=== PATIENT | female | born 1970 | race Caucasian/White ===

== ENCOUNTER → 2016-08-24 | Outpatient (CLI) | payer MEDICARE, OTHER ==
[2016-08-24 14:03] LABS: CH 25.8; CHCM 30.6; HCT 37.4 % (34.0-46.0); HDW 3.12; HGB 11.9 gm/dL (11.4-16.0); Hypochromasia Marked; MCV 84.5 fL (80.0-100.0); Mean Platelet Volume 8.8; RBC 4.42 m/uL (3.80-5.40); WBC 7.4 k/uL (3.8-10.6)
[2016-08-24 14:13] LABS: INR 1.1 (<1.1); Prothrombin Time 10.7 sec (9.0-12.0)
[2016-08-24 14:24] LABS: Anion Gap 13 mmol/L; Calcium 9.4 mg/dL (8.4-10.2); Carbon Dioxide 20 mmol/L (22-30); Chloride 108 mmol/L (98-107); Glucose 146 mg/dL (74-99); Non-African American GFR(MDRD) >60 (>60 ml/min/1.73 sqM); Sodium 141 mmol/L (137-145); Total Bilirubin 0.8 mg/dL (0.2-1.3)
[2016-08-24 14:33] LABS: AST 55 U/L (14-36); Alkaline Phosphatase 122 U/L (38-126); Blood Urea Nitrogen 10 mg/dL (7-17); Potassium 5.5 mmol/L (3.5-5.1); Total Protein 8.4 g/dL (6.3-8.2)
[2016-08-24 14:34] LABS: ALT 16 U/L (9-52)
== END | disposition home or self-care (01) ==
LOC: LABWHC1 13:41
PROVIDERS: ATTEND Physician Assistant
DX: K70.30 Alcoholic cirrhosis of liver without ascites (principal)
CPT/HCPCS: 36415; 80053; 85027; 85610

== ENCOUNTER → 2016-12-20 | Outpatient (CLI) | payer MEDICARE, OTHER ==
[2016-12-20 09:00] LABS: INR 1.1 (<1.1); Prothrombin Time 10.8 sec (9.0-12.0)
[2016-12-20 09:07] LABS: Anisocytosis Slight; CH 26.6; CHCM 31.4; HCT 39.5 % (34.0-46.0); HDW 3.11; HGB 12.2 gm/dL (11.4-16.0); Hypochromasia Moderate; MCH 26.4 pg (25.0-35.0); MCV 85.1 fL (80.0-100.0); RBC 4.64 m/uL (3.80-5.40); RDW 16.9 % (11.5-15.5); WBC 9.9 k/uL (3.8-10.6)
[2016-12-20 09:09] LABS: ALT 41 U/L (9-52); AST 45 U/L (14-36); Alkaline Phosphatase 122 U/L (38-126); Anion Gap 10 mmol/L; Blood Urea Nitrogen 13 mg/dL (7-17); Calcium 9.6 mg/dL (8.4-10.2); Carbon Dioxide 24 mmol/L (22-30); Chloride 105 mmol/L (98-107); Glucose 80 mg/dL (74-99); Non-African American GFR(MDRD) >60 (>60 ml/min/1.73 sqM); Potassium 4.6 mmol/L (3.5-5.1); Sodium 139 mmol/L (137-145); Total Bilirubin 0.6 mg/dL (0.2-1.3); Total Protein 8.2 g/dL (6.3-8.2)
== END | disposition home or self-care (01) ==
LOC: LABWHC1 08:20
PROVIDERS: ATTEND Physician Assistant
DX: K70.30 Alcoholic cirrhosis of liver without ascites (principal)
CPT/HCPCS: 36415; 80053; 85027; 85610

== ENCOUNTER → 2017-03-29 | Outpatient (CLI) | payer MEDICARE, OTHER ==
[2017-03-29 13:22] LABS: INR 1.1 (<1.2); Prothrombin Time 10.7 sec (9.0-12.0)
[2017-03-29 13:42] LABS: Anisocytosis Slight; CH 25.9; CHCM 29.7; HCT 37.6 % (34.0-46.0); HGB 11.7 gm/dL (11.4-16.0); Hypochromasia Marked; MCH 27.2 pg (25.0-35.0); MCV 87.7 fL (80.0-100.0); Mean Platelet Volume 8.5; RBC 4.29 m/uL (3.80-5.40); RDW 16.8 % (11.5-15.5); WBC 11.4 k/uL (3.8-10.6)
[2017-03-29 13:43] LABS: ALT 50 U/L (9-52); AST 54 U/L (14-36); Alkaline Phosphatase 140 U/L (38-126); Anion Gap 11 mmol/L; Blood Urea Nitrogen 13 mg/dL (7-17); Calcium 9.3 mg/dL (8.4-10.2); Carbon Dioxide 22 mmol/L (22-30); Chloride 106 mmol/L (98-107); Glucose 158 mg/dL (74-99); Non-African American GFR(MDRD) >60 (>60 ml/min/1.73 sqM); Potassium 4.8 mmol/L (3.5-5.1); Sodium 139 mmol/L (137-145); Total Bilirubin 0.2 mg/dL (0.2-1.3); Total Protein 8.1 g/dL (6.3-8.2)
== END | disposition home or self-care (01) ==
LOC: LABWHC1 12:41
PROVIDERS: ATTEND Physician Assistant
DX: K70.30 Alcoholic cirrhosis of liver without ascites (principal)
CPT/HCPCS: 36415; 80053; 82105; 85027; 85610

== ENCOUNTER → 2017-04-13 | Outpatient (CLI) | payer MEDICARE, OTHER ==
--- NOTE | 2017-04-17 19:10 | MR ---
EXAMINATION TYPE: MR liver wo/w con DATE OF EXAM: 04/13/2017 COMPARISON: 05/13/2016 and 03/10/2014 HISTORY: Follow up from previous MRI. Hepatocellular disease. CONTRAST: Standard multiplanar, multisequence MRI departmental protocol utilizing 10 mL intravenous Gadavist ga dolinium contrast. FINDINGS: There is a cirrhotic morphology of the liver with a macronodular contour. No hepatic atrophy. There i s mild signal dropout on out of phase imaging compared in phase imaging represented of mild hepatic s teatosis superimposed upon hepatocellular disease. Focal fatty sparing is seen around the gallbladder fossa and segment IVb. Peripheral predominant reticular T2 hyperintense and T1 hypointense pattern o f fibrosis is appreciated with delayed enhancement. No T2 hyperintense and T1 hypointense arterial en hancing lesions with washout on delayed imaging are seen to suggest hepatocellular carcinoma. The por maritza vein and portal splenic confluence as well as the upper visualized portions of the superior mesen teric vein and splenic vein appear patent. Trace perihepatic ascites is present. No evidence of conge stive colopathy. Nonenhancing punctate foci within the splenic parenchyma are favored to represent siderosis versus gr anulomas. The spleen is prominent in size measuring 13.0 cm although nonenlarged. Few small gastrohep atic varices are seen. No splenic varices. Esophageal varices are present such as on series 701 image 482. There is recannulization of the umbilical vein without mesenteric or soft tissue varices. Minim al bibasilar subsegmental atelectasis is seen at the lung bases. Surgical clips are seen in the gastr oesophageal junction. The pancreas is of normal enhancement and morphology without ductal dilatation. Visualized bowel is n ondilated. Few nonenlarged periaortic lymph nodes are seen. The kidneys are symmetric in enhancement without T2 hyperintense lesion. Adrenal glands are symmetric. Numerous gallstones are present within the gallbladder. Common bile duct is nondilated. Midline omental soft tissue density is stable back t o 10/06/2010 and may represent sequela of prior omental infarct. IMPRESSION: 1. Hepatic fibrosis and sequela of portal venous hypertension in the setting of hepatic cirrhosis wit h no suspicious lesion to raise concern for hepatocellular carcinoma. Continued surveillance is recom mended in this high-risk patient. 2. Scant perihepatic ascites. 3. Gastrohepatic and esophageal varices. 4. 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
== END | disposition home or self-care (01) ==
LOC: RADMRIMAIN 19:42
PROVIDERS: ATTEND Physician Assistant
DX: K74.0 Hepatic fibrosis (principal); K76.6 Portal hypertension; R18.8 Other ascites; I85.00 Esophageal varices without bleeding; I86.4 Gastric varices; K74.60 Unspecified cirrhosis of liver
CPT/HCPCS: 74183; A9581

== ENCOUNTER → 2017-08-22 | Outpatient (CLI) | payer MEDICARE, OTHER ==
[2017-08-22 13:11] LABS: INR 1.1 (<1.2); Prothrombin Time 10.8 sec (9.0-12.0)
[2017-08-22 13:12] LABS: Anisocytosis Slight; HCT 37.9 % (34.0-46.0); HGB 11.4 gm/dL (11.4-16.0); Hypochromasia Marked; MCH 24.9 pg (25.0-35.0); MCHC 30.2 g/dL (31.0-37.0); MCV 82.4 fL (80.0-100.0); Mean Platelet Volume 7.8; Platelet Count 245 k/uL (150-450); RBC 4.59 m/uL (3.80-5.40); RDW 16.7 % (11.5-15.5); WBC 7.2 k/uL (3.8-10.6)
[2017-08-22 13:15] LABS: ALT 33 U/L (9-52); AST 41 U/L (14-36); Albumin 4.4 g/dL (3.5-5.0); Alkaline Phosphatase 106 U/L (38-126); Anion Gap 13 mmol/L; Blood Urea Nitrogen 10 mg/dL (7-17); Calcium 9.9 mg/dL (8.4-10.2); Carbon Dioxide 26 mmol/L (22-30); Chloride 105 mmol/L (98-107); Glucose 141 mg/dL (74-99); Potassium 4.2 mmol/L (3.5-5.1); Sodium 144 mmol/L (137-145); Total Bilirubin 0.3 mg/dL (0.2-1.3); Total Protein 8.6 g/dL (6.3-8.2)
== END | disposition home or self-care (01) ==
LOC: LABWHC1 12:48
PROVIDERS: ATTEND Physician Assistant
DX: K70.30 Alcoholic cirrhosis of liver without ascites (principal)
CPT/HCPCS: 36415; 80053; 82105; 85027; 85610

== ENCOUNTER 2019-06-26 17:16 | Emergency (ER) | payer MEDICARE, OTHER ==
[2019-06-26] MEDS ORDERED: IPRATROPIUM-ALBUTEROL 3 ML NEB INHALATION STA (17:44)
--- NOTE | 2019-06-26 18:29 | ED ---
URI HPI - General Chief Complaint: Upper Respiratory Infection Stated Complaint: Not feeling well Time Seen by Provider: 06/26/19 17:28 Source: patient, RN notes reviewed Mode of arrival: ambulatory Limitations: no limitations - History of Present Illness Initial Comments: 49-year-old female presents emergency Department chief complaint of cough congestion bodyaches. Patient states she has not followed last 3 days. Patient states she has a slightly productive cough states it hurts to cough and her ribs. She has no resting chest pain or exertional dyspnea. Patient denies recent Tylenol or Motrin. She does have underlying liver cirrhosis from alcohol abuse. Patient denies history of cardiac disease or congestive heart failure. She has no evidence of orthopnea. Patient states she has a large amount nasal congestion, sore throat and ear pressure. - Related Data Home Medications Medication Instructions Recorded Confirmed Cyanocobalamin [Vitamin B-12] 500 mcg PO DAILY@1200 03/10/14 03/10/14 Folic Acid 1 mg PO DAILY 03/10/14 03/10/14 Furosemide [Lasix] 80 mg PO BID 03/10/14 03/10/14 Hydrocodone/Acetaminophen 1 each PO BID 03/10/14 05/16/16 [Hydrocodone/Acetaminophen 10-325] Omeprazole [PriLOSEC] 20 mg PO AC-BID 03/10/14 03/10/14 PARoxetine HCL [Paxil] 20 mg PO DAILY 03/10/14 03/10/14 Propranolol [Inderal] 10 mg PO TID 03/10/14 05/16/16 Rifaximin [Xifaxan] 550 mg PO 03/10/14 03/10/14 Spironolactone 100 mg PO BID 03/10/14 03/10/14 Ursodiol [Actigall] 300 mg PO BID 03/10/14 03/10/14 Previous Rx's Medication Instructions Recorded Oseltamivir [Tamiflu] 75 mg PO Q12HR #10 cap 06/26/19 Allergies Allergy/AdvReac Type Severity Reaction Status Date / Time No Known Allergies Allergy Verified 06/26/19 17:21 Review of Systems ROS Statement: Those systems with pertinent positive or pertinent negative responses have been documented in the HPI. ROS Other: All systems not noted in ROS Statement are negative. Past Medical History Past Medical History: Liver Disease Additional Past Medical History / Comment(s): CIRRHOSIS. ESOPHAGEAL VARICIES History of Any Multi-Drug Resistant Organisms: None Reported Past Surgical History: Bariatric Surgery, Tubal Ligation Additional Past Surgical History / Comment(s): tummy tuck, gastric bypass, EGD, COLONOSCOPY Past Anesthesia/Blood Transfusion Reactions: No Reported Reaction Past Psychological History: Anxiety Smoking Status: Current every day smoker Past Alcohol Use History: None Reported Past Drug Use History: Marijuana - Past Family History Father Family Medical History: Deep Vein Thrombosis (DVT) General Exam Limitations: no limitations General appearance: alert, in no apparent distress Head exam: Present: atraumatic, normocephalic, normal inspection Eye exam: Present: normal appearance, PERRL, EOMI. Absent: scleral icterus, conjunctival injection, periorbital swelling ENT exam: Present: normal exam, normal oropharynx, mucous membranes moist Neck exam: Present: normal inspection, full ROM. Absent: tenderness, meningismus, lymphadenopathy Respiratory exam: Present: normal lung sounds bilaterally, chest wall tenderness. Absent: respiratory distress, wheezes, rales, rhonchi, stridor Cardiovascular Exam: Present: regular rate, normal rhythm, normal heart sounds. Absent: systolic murmur, diastolic murmur, rubs, gallop, clicks Back exam: Absent: CVA tenderness (R), CVA tenderness (L) Neurological exam: Present: alert Skin exam: Present: warm, dry, intact, normal color. Absent: rash Course Vital Signs 06/26/19 06/26/19 06/26/19 17:19 17:54 18:15 Temperature 97.7 F Pulse Rate 91 91 90 Respiratory 22 Rate Blood Pressure 116/76 O2 Sat by Pulse 100 Oximetry Medical Decision Making - Medical Decision Making Chest x-ray is unremarkable, patient has influenza B-positive. Patient's symptoms started last 48 hours we offered Tamiflu. Patient be discharged return parameters were discussed. - Lab Data Lab Results 06/26/19 Range/Units 18:00 Influenza Type A RNA Not Detected (Not Detectd) Influenza Type B (PCR) Detected H (Not Detectd) Disposition Clinical Impression: Influenza B Disposition: HOME SELF-CARE Condition: Stable Instructions (If sedation given, give patient instructions): Influenza (ED) Additional Instructions: Please return to the Emergency Department if symptoms worsen or any other concerns. Prescriptions: Oseltamivir [Tamiflu] 75 mg PO Q12HR #10 cap Is patient prescribed a controlled substance at d/c from ED?: No Referrals: Tung Christensen MD [Primary Care Provider] - 1-2 days Time of Disposition: 18:29
--- NOTE | 2019-06-26 18:37 | XR ---
EXAMINATION TYPE: XR chest 2V DATE OF EXAM: 06/26/2019 COMPARISON: 07/16/2012 HISTORY: Cough TECHNIQUE: 2 views FINDINGS: Heart is normal. Lungs are clear. Diaphragm is normal. There are no hilar masses. Bony thor ax is intact. IMPRESSION: Normal chest. No change.
[2019-06-26 19:21] VITALS: BP 120/71; PULSE 78; RESP 196; TEMP 97.9
== END 2019-06-26 19:21 | disposition home or self-care (01) ==
LOC: EC 17:16
DX: J10.1 Influenza due to other identified influenza virus with other respiratory manifestations (principal); F41.9 Anxiety disorder, unspecified; F17.200 Nicotine dependence, unspecified, uncomplicated; Z79.899 Other long term (current) drug therapy; Z98.84 Bariatric surgery status
CPT/HCPCS: 71046; 87502; 94640; 99284

== ENCOUNTER → 2020-05-18 | Day surgery (SDC) | payer MEDICARE ==
[2020-05-14 09:22] VITALS: BMI 27.4
[~2020-05-18] MED LIST: LACTATED RINGERS 1,000 ML IV ONE; LACTATED RINGERS 1,000 ML IV SCH; LIDOCAINE 1% (10MG/ML) FOR IV START INTRADERMA ONE; LIDOCAINE 1% INJ 10MG/ML (20 ML MDV) ONE; PROPOFOL 10 MG/ML 20 ML VIAL IV ONE
[2020-05-18 10:13] VITALS: TEMP 97.8
[2020-05-18 10:53] LABS: Anisocytosis Slight; HGB 11.3 gm/dL (11.4-16.0); Hypochromasia Slight; MCH 25.5 pg (25.0-35.0); MCHC 33.2 g/dL (31.0-37.0); MCV 76.9 fL (80.0-100.0); Mean Platelet Volume 7.9; Microcytosis Slight; Platelet Count 182 k/uL (150-450); RBC 4.42 m/uL (3.80-5.40); RDW 16.5 % (11.5-15.5); WBC 5.8 k/uL (3.8-10.6)
[2020-05-18 11:02] LABS: Prothrombin Time 10.4 sec (9.0-12.0)
[2020-05-18 11:08] LABS: ALT 39 U/L (4-34); AST 59 U/L (14-36); African American GFR (CKD) >90 (>60 ml/min/1.73 sqM); Albumin 4.1 g/dL (3.5-5.0); Alkaline Phosphatase 105 U/L (38-126); Anion Gap 6 mmol/L; Blood Urea Nitrogen 11 mg/dL (7-17); Calcium 9.8 mg/dL (8.4-10.2); Carbon Dioxide 26 mmol/L (22-30); Chloride 108 mmol/L (98-107); Glucose 100 mg/dL (74-99); Non-African American GFR(CKD) >90 (>60 ml/min/1.73 sqM); Potassium 4.6 mmol/L (3.5-5.1); Sodium 140 mmol/L (137-145); Total Bilirubin 0.5 mg/dL (0.2-1.3); Total Protein 7.8 g/dL (6.3-8.2)
[2020-05-18 12:02] VITALS: RESP 16
--- NOTE | 2020-05-18 12:02 | P.PCN ---
Date of Procedure: 05/18/20 Description of Procedure: Brief history: Patient is a 50-year-old presenting for outpatient esophagogastroduodenoscopy and colonoscopy for evaluation of esophageal varices without bleeding and screening for malignant neoplasm of the colon. Procedure performed: Esophagogastroduodenoscopy Colonoscopy Estimated blood loss: Minimal. Preoperative diagnosis: Esophageal varices without bleeding, screening for malignant neoplasm of the colon. Anesthesia: MAC Procedure: After informed consent was obtained from the patient was brought into the endoscopy unit and IV sedation was administered by anesthesia under continuous monitoring. Initially upper endoscopy was done. The Olympus GF 190 video endoscope was inserted into the mouth and esophagus intubated without any difficulty and was gradually advanced into the gastric remnant and into the small bowel. No abnormalities or ulcers were seen. Scope was then withdrawn to the anastomotic site which was intact. The gastric remnant appeared normal. The scope was then withdrawn to the GE junction located 38 cm from the incisors and appeared normal. There were a few columns of small varices and some LA grade a distal esophagitis in the distal esophagus. The rest of the esophagus otherwise appeared normal. At this time the patient continued to remain sedation. Initial digital rectal examination was normal. Olympus CF 190 video colonoscope was then inserted into the rectum and gradually advanced to the cecum without any difficulty. Careful examination was performed as the scope was gradually being withdrawn. The prep was excellent. The cecum, ascending colon, transverse colon, descending colon, sigmoid colon and rectum appeared normal. A few scattered diverticula noted in the sigmoid colon. Retroflexion was performed in the rectum and no lesions were noted. Patient tolerated the procedure well. Impression: 1. A few columns of small distal esophageal varices. LA grade a distal esophagitis. Cande-en-Y gastric bypass. 2. Mild sigmoid diverticulosis. Recommendations: Findings of this examination were discussed with the patient as well as her family. Okay to resume diet. Okay to resume medication. Patient should follow-up in the GI clinic and would recommend restarting omeprazole daily and a nonselective beta shantelle as the patient has previously been treated with. Recommend repeat colonoscopy in 10 years for screening and repeat EGD in 1-2 years for surveillance of varices.
[2020-05-18 12:18] VITALS: BP 95/65; PULSE 70
== END ==
LOC: ORWHC2ENDO 09:54
PROVIDERS: ATTEND Internal Medicine
DX: Z12.11 Encounter for screening for malignant neoplasm of colon (principal); K57.30 Diverticulosis of large intestine without perforation or abscess without bleeding; K74.60 Unspecified cirrhosis of liver; I85.10 Secondary esophageal varices without bleeding; K20.90 Esophagitis, unspecified without bleeding; Z98.51 Tubal ligation status; Z98.890 Other specified postprocedural states; Z98.84 Bariatric surgery status
CPT/HCPCS: 80053; 85027; 85610; 82105; 43235; J2001; J2704; G0121

== ENCOUNTER → 2020-05-20 | Outpatient (CLI) | payer MEDICARE ==
--- NOTE | 2020-05-20 09:57 | MR ---
EXAMINATION TYPE: MR liver wo/w con DATE OF EXAM: 05/20/2020 COMPARISON: MRI liver April 13, 2017 and older studies. HISTORY: Alcoholic Cirrhosis CONTRAST: Standard multiplanar, multisequence MRI departmental protocol utilizing 8.5 mL intravenous Gadavist g adolinium contrast. Imaging performed of the abdomen focusing on the liver. FINDINGS: Liver: Liver remains normal in size with lobulated peripheral nodular contour consistent with underly ing cirrhosis. No surrounding ascites is seen. Dynamic postcontrast imaging shows no suspicious enhan cing lesions with peripheral washout to suggest focal HCC. No concerning solid or cystic intrahepatic masses are identified. Peripheral predominant reticular T2 hyperintense and T1 hypointense pattern o f fibrosis is redemonstrated with delayed enhancement. There is patent main portal vein which is nond ilated. There are patent hepatic veins draining into the IVC. There is redemonstration of multiple de pendent small gallstones in gallbladder without surrounding inflammatory change or wall thickening. N o biliary dilatation is noted. Other: Spleen size is stable and upper limits of normal at 14.0 cm coronal image 33 unchanged from pr ior. Lung bases are clear. Uphill Periesophageal varices redemonstrated. The pancreas and both adrena l glands remain within normal limits. No concerning renal mass or hydronephrosis. No bowel dilatation or intra-abdominal ascites. Osseous structures are intact. IMPRESSION: Continued hepatic fibrosis and cirrhosis morphology without focal mass to suggest HCC. No Significant change from prior. No new significant ascites.
== END | disposition home or self-care (01) ==
LOC: RADMRIMAIN 07:19
PROVIDERS: ATTEND Physician Assistant
DX: K74.00 Hepatic fibrosis, unspecified (principal)
CPT/HCPCS: 74183; A9585

== ENCOUNTER 2021-03-14 21:02 | Emergency (ER) | payer OTHER, MEDICARE ==
[2021-03-14 21:18] VITALS: TEMP 97.9
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
[2021-03-14] MEDS ORDERED: LIDOCAINE 1% INJ 10MG/ML (20 ML MDV) SQ ONE (23:53)
[2021-03-15 01:38] VITALS: BP 110/65; PULSE 74; RESP 16
== END 2021-03-15 01:38 | disposition home or self-care (01) ==
LOC: EC 21:02
DX: S01.81XA Laceration without foreign body of other part of head, initial encounter (principal); F17.200 Nicotine dependence, unspecified, uncomplicated; F12.90 Cannabis use, unspecified, uncomplicated; Z98.84 Bariatric surgery status; V47.5XXA Car driver injured in collision with fixed or stationary object in traffic accident, initial encounter; Y92.410 Unspecified street and highway as the place of occurrence of the external cause
CPT/HCPCS: 70450; 99284; 12014; J2001

== ENCOUNTER 2021-09-04 23:28 | Emergency (ER) | payer MEDICARE ==
[2021-09-04 23:43] VITALS: RESP 20
[2021-09-05 01:57] LABS: Anisocytosis Slight; Basophils # (A) 0.1 k/uL (0-0.2); Basophils % (A) 1 %; Eosinophils # (A) 0.2 k/uL (0-0.7); Eosinophils % (A) 3 %; HGB 10.7 gm/dL (11.4-16.0); Hypochromasia Slight; Lymphocytes # (A) 1.4 k/uL (1.0-4.8); Lymphocytes % (A) 21 %; MCH 25.6 pg (25.0-35.0); MCHC 31.6 g/dL (31.0-37.0); MCV 81.1 fL (80.0-100.0); Mean Platelet Volume 9.1; Monocytes # (A) 0.5 k/uL (0-1.0); Monocytes % (A) 8 %; Neutrophils # (A) 4.3 k/uL (1.3-7.7); Neutrophils % (A) 66 %; Platelet Count 233 k/uL (150-450); RBC 4.19 m/uL (3.80-5.40); RDW 16.5 % (11.5-15.5); WBC 6.5 k/uL (3.8-10.6)
--- NOTE | 2021-09-05 01:59 | ED ---
Skin/Abscess/FB HPI - General Chief complaint: Skin/Abscess/Foreign Body Stated complaint: RT leg infection Time Seen by Provider: 09/05/21 00:06 Source: patient, RN notes reviewed Mode of arrival: wheelchair Limitations: no limitations - History of Present Illness Initial comments: Patient states a few days ago she dropped an object on her left leg, anterior aspect. Patient states that since then she has had pain to the area. Patient now complaining of swelling to the area. Pain is exacerbated by palpation and movement. Follow-up with your regular physician as directed. Return to the ER immediately if any symptoms worsen, new symptoms arise, or any other problems develop. - Related Data Previous Rx's Medication Instructions Recorded Cephalexin [Keflex] 500 mg PO Q6HR #40 cap 09/05/21 Allergies Allergy/AdvReac Type Severity Reaction Status Date / Time No Known Allergies Allergy Verified 09/04/21 23:43 Review of Systems ROS Statement: Those systems with pertinent positive or pertinent negative responses have been documented in the HPI. ROS Other: All systems not noted in ROS Statement are negative. Past Medical History Past Medical History: Liver Disease Additional Past Medical History / Comment(s): CIRRHOSIS. ESOPHAGEAL VARICIES History of Any Multi-Drug Resistant Organisms: None Reported Past Surgical History: Bariatric Surgery, Tubal Ligation Additional Past Surgical History / Comment(s): tummy tuck, gastric bypass, EGD, COLONOSCOPY Past Anesthesia/Blood Transfusion Reactions: No Reported Reaction Past Psychological History: Anxiety Smoking Status: Current every day smoker Past Alcohol Use History: None Reported Past Drug Use History: Marijuana - Past Family History Father Family Medical History: Deep Vein Thrombosis (DVT) General Exam - General Exam Comments Initial Comments: This is a pleasant 51-year-old female in no significant distress. She does not appear to be ill or toxic. Vital signs reviewed, patient cranial nerves are grossly intact. Limitations: no limitations General appearance: alert, in no apparent distress Head exam: Present: atraumatic, normocephalic, normal inspection Eye exam: Present: normal appearance, PERRL, EOMI. Absent: scleral icterus, conjunctival injection, periorbital swelling ENT exam: Present: normal exam, mucous membranes moist Neck exam: Present: normal inspection. Absent: tenderness, meningismus, lymphadenopathy Respiratory exam: Present: normal lung sounds bilaterally. Absent: respiratory distress, wheezes, rales, rhonchi, stridor Cardiovascular Exam: Present: regular rate, normal rhythm, normal heart sounds. Absent: systolic murmur, diastolic murmur, rubs, gallop, clicks GI/Abdominal exam: Present: soft, normal bowel sounds. Absent: distended, tenderness, guarding, rebound, rigid Extremities exam: Present: full ROM, tenderness (Patient has tenderness to anterior aspect of the left lower leg. There is an area of contusion with a mild area of erythema. No evidence of lymphangitis. No ankle or knee tenderness. No calf tenderness. Negative Homans sign. Pedal pulses are 2+ out of 4.), normal capillary refill, pedal edema, other (Mild edema noted to the affected area. No edema elsewhere.). Absent: joint swelling, calf tenderness Back exam: Present: normal inspection Neurological exam: Present: alert, oriented X3, CN II-XII intact Psychiatric exam: Present: normal affect, normal mood Skin exam: Present: warm, dry, intact, normal color. Absent: rash Course Vital Signs 09/04/21 23:41 Temperature 98.1 F Pulse Rate 91 Respiratory 20 Rate Blood Pressure 126/74 O2 Sat by Pulse 100 Oximetry Medical Decision Making - Medical Decision Making Patient presents symptomology consistent with soft tissue contusion possible early cellulitis. The patient does not appear to be ill or toxic.The case was discussed in detail with ED attending physician. Presentation, findings, treatment plan discussed in detail. Patient's x-rays show no evidence of acute pathology. Patient's symptoms mildly consistent with a contusion with possible early cellulitis/secondary infection. I'm going to cover the patient with cephalexin. We'll have her elevate leg as much as possible follow-up with her regular physician for recheck. Patient was told to call Monday morning to schedule the follow-up appointment. All findings discussed. Treatment plan discussed. Patient voiced understanding. - Lab Data Result diagrams: 09/05/21 01:37 09/05/21 01:37 Lab Results 09/05/21 09/05/21 Range/Units 01:37 01:37 WBC 6.5 (3.8-10.6) k/uL RBC 4.19 (3.80-5.40) m/uL Hgb 10.7 L (11.4-16.0) gm/dL Hct 34.0 (34.0-46.0) % MCV 81.1 (80.0-100.0) fL MCH 25.6 (25.0-35.0) pg MCHC 31.6 (31.0-37.0) g/dL RDW 16.5 H (11.5-15.5) % Plt Count 233 (150-450) k/uL MPV 9.1 Neutrophils % 66 % Lymphocytes % 21 % Monocytes % 8 % Eosinophils % 3 % Basophils % 1 % Neutrophils # 4.3 (1.3-7.7) k/uL Lymphocytes # 1.4 (1.0-4.8) k/uL Monocytes # 0.5 (0-1.0) k/uL Eosinophils # 0.2 (0-0.7) k/uL Basophils # 0.1 (0-0.2) k/uL Hypochromasia Slight Anisocytosis Slight Sodium 137 (137-145) mmol/L Potassium 4.0 (3.5-5.1) mmol/L Chloride 108 H (98-107) mmol/L Carbon Dioxide 22 (22-30) mmol/L Anion Gap 7 mmol/L BUN 18 H (7-17) mg/dL Creatinine 0.68 (0.52-1.04) mg/dL Est GFR (CKD-EPI)AfAm >90 (>60 ml/min/1.73 sqM) Est GFR (CKD-EPI)NonAf >90 (>60 ml/min/1.73 sqM) Glucose 89 (74-99) mg/dL Calcium 9.6 (8.4-10.2) mg/dL Total Bilirubin 0.6 (0.2-1.3) mg/dL AST 32 (14-36) U/L ALT 23 (4-34) U/L Alkaline Phosphatase 100 (38-126) U/L Total Protein 8.1 (6.3-8.2) g/dL Albumin 4.2 (3.5-5.0) g/dL Disposition Clinical Impression: Contusion of right lower leg, initial encounter, Cellulitis of right lower leg Disposition: HOME SELF-CARE Condition: Stable Instructions (If sedation given, give patient instructions): Contusion in Adults (ED), Cellulitis (ED) Additional Instructions: Call tomorrow morning for follow-up appointment with your regular physician. Elevate your leg as much as possible.Follow-up with your regular physician as directed. Return to the ER immediately if any symptoms worsen, new symptoms arise, or any other problems develop. Is patient prescribed a controlled substance at d/c from ED?: No Referrals: Tung Christensen MD [Primary Care Provider] - 1-2 days Time of Disposition: 03:26
[2021-09-05 03:18] LABS: ALT 23 U/L (4-34); AST 32 U/L (14-36); African American GFR (CKD) >90 (>60 ml/min/1.73 sqM); Albumin 4.2 g/dL (3.5-5.0); Alkaline Phosphatase 100 U/L (38-126); Anion Gap 7 mmol/L; Blood Urea Nitrogen 18 mg/dL (7-17); Calcium 9.6 mg/dL (8.4-10.2); Carbon Dioxide 22 mmol/L (22-30); Chloride 108 mmol/L (98-107); Glucose 89 mg/dL (74-99); Non-African American GFR(CKD) >90 (>60 ml/min/1.73 sqM); Sodium 137 mmol/L (137-145); Total Bilirubin 0.6 mg/dL (0.2-1.3); Total Protein 8.1 g/dL (6.3-8.2)
[2021-09-05] MEDS ORDERED: CEPHALEXIN 500 MG CAP PO STA (03:24)
[2021-09-05] MEDS ORDERED: IBUPROFEN 600 MG TAB PO STA (03:25)
--- NOTE | 2021-09-05 03:31 | XR ---
EXAMINATION TYPE: XR tibia fibula RT DATE OF EXAM: 09/05/2021 COMPARISON: NONE HISTORY: Pain TECHNIQUE: 2 views FINDINGS: Tibia and fibula appear intact. Ankle joint is intact. I see no fracture nor dislocation. IMPRESSION: No acute abnormality of the right tibia and fibula.
[2021-09-05 03:35] VITALS: BP 122/72; PULSE 90; TEMP 98.3
== END 2021-09-05 03:34 | disposition home or self-care (01) ==
LOC: EC 23:28
DX: S80.11XA Contusion of right lower leg, initial encounter (principal); L03.115 Cellulitis of right lower limb; F17.200 Nicotine dependence, unspecified, uncomplicated; X58.XXXA Exposure to other specified factors, initial encounter
CPT/HCPCS: 36415; 80053; 85025; 99283

== ENCOUNTER 2022-06-07 11:24 | Inpatient (IN) | payer MEDICARE, OTHER ==
[2022-06-07] MEDS ORDERED: MORPHINE SULFATE 2 MG/ML SYRINGE IVP STA (11:48)
[2022-06-07] MEDS ORDERED: SODIUM CHLORIDE 0.9% 1,000 ML IV STA ×2 (11:48→14:52)
[2022-06-07] MEDS ORDERED: KETOROLAC 15 MG/ML 1 ML VIAL IVP STA (11:48)
--- NOTE | 2022-06-07 12:00 | ED ---
Abdominal Pain HPI - General Chief Complaint: Abdominal Pain Stated Complaint: abd pain Time Seen by Provider: 06/07/22 11:37 Source: patient, family, RN notes reviewed Mode of arrival: wheelchair Limitations: no limitations - History of Present Illness Initial Comments: This is a 52-year-old female who presents to the emergency department for abdominal pain. Patient states that this is in the left lower abdomen and started last night. She believes that her abdomen feels swollen. Denies any associated nausea or vomiting. She does report fevers and a decreased appetite. She has no associated constipation or diarrhea. She has had colonoscopies in the past but has never been told that she has diverticulosis. She does have a known history of cirrhosis. Denies any changes in urinary habits. Denies any sore throat, cough, dyspnea, chest pain, palpitations, nausea, vomiting, diarrhea, back pain, or headaches. MD Complaint: abdominal pain Onset/Timin -: days(s) Location: LLQ, epigastric Associated Symptoms: fever - Related Data Patient : No Home Medications Medication Instructions Recorded Confirmed No Known Home Medications 06/07/22 06/07/22 Allergies Allergy/AdvReac Type Severity Reaction Status Date / Time No Known Allergies Allergy Verified 06/07/22 15:14 Review of Systems ROS Statement: Those systems with pertinent positive or pertinent negative responses have been documented in the HPI. ROS Other: All systems not noted in ROS Statement are negative. Past Medical History Past Medical History: Liver Disease Additional Past Medical History / Comment(s): CIRRHOSIS. ESOPHAGEAL VARICIES History of Any Multi-Drug Resistant Organisms: None Reported Past Surgical History: Bariatric Surgery, Tubal Ligation Additional Past Surgical History / Comment(s): tummy tuck, gastric bypass, EGD, COLONOSCOPY Past Anesthesia/Blood Transfusion Reactions: No Reported Reaction Past Psychological History: Anxiety Smoking Status: Current every day smoker Past Alcohol Use History: None Reported Past Drug Use History: Marijuana - Past Family History Father Family Medical History: Deep Vein Thrombosis (DVT) General Exam Limitations: no limitations General appearance: alert, in distress Head exam: Present: atraumatic, normocephalic, normal inspection Respiratory exam: Present: normal lung sounds bilaterally. Absent: respiratory distress, wheezes, rales, rhonchi, stridor Cardiovascular Exam: Present: regular rate, normal rhythm, normal heart sounds. Absent: systolic murmur, diastolic murmur, rubs, gallop, clicks GI/Abdominal exam: Present: soft, tenderness (LLQ and epigastric), hypoactive bowel sounds. Absent: distended Neurological exam: Present: alert, oriented X3, CN II-XII intact Psychiatric exam: Present: normal affect, normal mood Skin exam: Present: warm, dry, intact, normal color. Absent: rash Course Vital Signs 06/07/22 06/07/22 11:31 14:42 Temperature 98.4 F 98.9 F Pulse Rate 105 H Pulse Rate [ 106 H Pulse Oximetery ] Respiratory 26 H 20 Rate Blood Pressure 114/73 Blood Pressure 109/72 [Left Arm] O2 Sat by Pulse 99 Oximetry Medical Decision Making - Medical Decision Making This is a 52-year-old female who presents to the emergency department for abdominal pain. I did review the patient's results of her colonoscopy from 2019, and it does appear that she was diagnosed with sigmoid diverticulosis. Lab work reveals leukocytosis. Urinalysis is also suggestive of a urinary tract infection. Computed tomography scan of the abdomen and pelvis obtained. My interpretation of the CT scan reveals distension and wall thickening of the small bowels as well as cholelithiasis. The radiologist suggest small bowel enteritis as well as gallbladder hydrops. Her liver cirrhosis is also mentioned. Ultrasound of the gallbladder was obtained for further visualization of these gallbladder findings. This again identifies the gallbladder hydrops with gallstones. It also mentions that the CBD and gallbladder wall are at the upper limits of normal. Patient does meet septic criteria with the leukocyt osis, tachycardia, identified infection. Patient will be admitted to medicine for several infections and septic state. General surgery and gastroenterology consults placed. Patient started on IV Zosyn with blood cultures obtained prior. This case was discussed in detail with the attending ED physician. Presentation, findings, and treatment plan discussed in detail as well. - Lab Data Result diagrams: 06/07/22 11:59 06/07/22 11:59 Lab Results 06/07/22 06/07/22 06/07/22 Range/Units 11:59 11:59 11:59 WBC 24.5 H (3.8-10.6) k/uL RBC 4.65 (3.80-5.40) m/uL Hgb 12.1 (11.4-16.0) gm/dL Hct 36.7 (34.0-46.0) % MCV 78.8 L (80.0-100.0) fL MCH 25.9 (25.0-35.0) pg MCHC 32.9 (31.0-37.0) g/dL RDW 15.1 (11.5-15.5) % Plt Count 194 (150-450) k/uL MPV 9.5 Neutrophils % 94 % Lymphocytes % 3 % Monocytes % 2 % Eosinophils % 0 % Basophils % 0 % Neutrophils # 23.1 H (1.3-7.7) k/uL Lymphocytes # 0.8 L (1.0-4.8) k/uL Monocytes # 0.4 (0-1.0) k/uL Eosinophils # 0.1 (0-0.7) k/uL Basophils # 0.0 (0-0.2) k/uL Hypochromasia Slight Sodium 136 L (137-145) mmol/L Potassium 4.7 (3.5-5.1) mmol/L Chloride 105 (98-107) mmol/L Carbon Dioxide 24 (22-30) mmol/L Anion Gap 7 mmol/L BUN 15 (7-17) mg/dL Creatinine 0.66 (0.52-1.04) mg/dL Est GFR (CKD-EPI)AfAm >90 (>60 ml/min/1.73 sqM) Est GFR (CKD-EPI)NonAf >90 (>60 ml/min/1.73 sqM) Glucose 120 H (74-99) mg/dL Plasma Lactic Acid Jose Manuel 1.6 (0.7-2.0) mmol/L Calcium 9.5 (8.4-10.2) mg/dL Total Bilirubin 1.2 (0.2-1.3) mg/dL AST 54 H (14-36) U/L ALT 42 H (4-34) U/L Alkaline Phosphatase 121 (38-126) U/L Troponin I (0.000-0.034) ng/mL Total Protein 7.9 (6.3-8.2) g/dL Albumin 4.1 (3.5-5.0) g/dL Amylase 46 (30-110) U/L Lipase 17 L (23-300) U/L Urine Color Urine Appearance (Clear) Urine pH (5.0-8.0) Ur Specific Aurora (1.001-1.035) Urine Protein (Negative) Urine Glucose (UA) (Negative) Urine Ketones (Negative) Urine Blood (Negative) Urine Nitrite (Negative) Urine Bilirubin (Negative) Urine Urobilinogen (<2.0) mg/dL Ur Leukocyte Esterase (Negative) Urine RBC (0-5) /hpf Urine WBC (0-5) /hpf Ur Squamous Epith Cells (0-4) /hpf Urine Mucus (None) /hpf 06/07/22 06/07/22 Range/Units 11:59 13:08 WBC (3.8-10.6) k/uL RBC (3.80-5.40) m/uL Hgb (11.4-16.0) gm/dL Hct (34.0-46.0) % MCV (80.0-100.0) fL MCH (25.0-35.0) pg MCHC (31.0-37.0) g/dL RDW (11.5-15.5) % Plt Count (150-450) k/uL MPV Neutrophils % % Lymphocytes % % Monocytes % % Eosinophils % % Basophils % % Neutrophils # (1.3-7.7) k/uL Lymphocytes # (1.0-4.8) k/uL Monocytes # (0-1.0) k/uL Eosinophils # (0-0.7) k/uL Basophils # (0-0.2) k/uL Hypochromasia Sodium (137-145) mmol/L Potassium (3.5-5.1) mmol/L Chloride (98-107) mmol/L Carbon Dioxide (22-30) mmol/L Anion Gap mmol/L BUN (7-17) mg/dL Creatinine (0.52-1.04) mg/dL Est GFR (CKD-EPI)AfAm (>60 ml/min/1.73 sqM) Est GFR (CKD-EPI)NonAf (>60 ml/min/1.73 sqM) Glucose (74-99) mg/dL Plasma Lactic Acid Jose Manuel (0.7-2.0) mmol/L Calcium (8.4-10.2) mg/dL Total Bilirubin (0.2-1.3) mg/dL AST (14-36) U/L ALT (4-34) U/L Alkaline Phosphatase (38-126) U/L Troponin I <0.012 (0.000-0.034) ng/mL Total Protein (6.3-8.2) g/dL Albumin (3.5-5.0) g/dL Amylase (30-110) U/L Lipase (23-300) U/L Urine Color Yellow Urine Appearance Cloudy H (Clear) Urine pH 7.0 (5.0-8.0) Ur Specific [place] 1.032 (1.001-1.035) Urine Protein 1+ H (Negative) Urine Glucose (UA) Negative (Negative) Urine Ketones Negative (Negative) Urine Blood Large H (Negative) Urine Nitrite Negative (Negative) Urine Bilirubin Negative (Negative) Urine Urobilinogen 12.0 (<2.0) mg/dL Ur Leukocyte Esterase Large H (Negative) Urine RBC >182 H (0-5) /hpf Urine WBC 168 H (0-5) /hpf Ur Squamous Epith Cells 5 H (0-4) /hpf Urine Mucus Occasional H (None) /hpf - Radiology Data Radiology results: report reviewed, image reviewed Disposition Clinical Impression: Gallbladder hydrops, Enteritis, UTI (urinary tract infection) Disposition: ADMITTED IP TO THIS HOSP
[2022-06-07 12:09] LABS: Basophils % (A) 0 %; Eosinophils # (A) 0.1 k/uL (0-0.7); Eosinophils % (A) 0 %; HCT 36.7 % (34.0-46.0); HGB 12.1 gm/dL (11.4-16.0); Hypochromasia Slight; Lymphocytes # (A) 0.8 k/uL (1.0-4.8); Lymphocytes % (A) 3 %; MCH 25.9 pg (25.0-35.0); MCHC 32.9 g/dL (31.0-37.0); MCV 78.8 fL (80.0-100.0); Mean Platelet Volume 9.5; Monocytes # (A) 0.4 k/uL (0-1.0); Monocytes % (A) 2 %; Neutrophils # (A) 23.1 k/uL (1.3-7.7); Neutrophils % (A) 94 %; Platelet Count 194 k/uL (150-450); RBC 4.65 m/uL (3.80-5.40); RDW 15.1 % (11.5-15.5); WBC 24.5 k/uL (3.8-10.6)
[2022-06-07] MEDS ORDERED: HYDROmorphone 0.5 MG/0.5 ML SYRINGE IVP STA ×2 (12:25→14:55)
[2022-06-07 12:35] LABS: ALT 42 U/L (4-34); AST 54 U/L (14-36); African American GFR (CKD) >90 (>60 ml/min/1.73 sqM); Albumin 4.1 g/dL (3.5-5.0); Alkaline Phosphatase 121 U/L (38-126); Amylase 46 U/L (30-110); Anion Gap 7 mmol/L; Blood Urea Nitrogen 15 mg/dL (7-17); Calcium 9.5 mg/dL (8.4-10.2); Carbon Dioxide 24 mmol/L (22-30); Chloride 105 mmol/L (98-107); Glucose 120 mg/dL (74-99); Lipase 17 U/L (23-300); Non-African American GFR(CKD) >90 (>60 ml/min/1.73 sqM); Potassium 4.7 mmol/L (3.5-5.1); Sodium 136 mmol/L (137-145); Total Bilirubin 1.2 mg/dL (0.2-1.3); Total Protein 7.9 g/dL (6.3-8.2)
--- NOTE | 2022-06-07 13:12 | CT ---
EXAMINATION TYPE: CT abdomen pelvis w con DATE OF EXAM: 06/07/2022 COMPARISON: 03/10/2014 HISTORY: abdominal pain CT DLP: 982 mGycm CONTRAST: CT scan of the abdomen and pelvis is performed without Oral Contrast and with IV Contrast, patient in jected with 100 mL of Isovue 300. FINDINGS: LUNG BASES-: No visible nodule. No infiltrate. LIVER/GB: Gallbladder hydrops measuring 9.4 cm. Layering gallstones noted. No definite wall thicken ing or pericholecystic fluid. Nodular peripheral hepatic contour suggestive of underlying cirrhotic l iver disease. No space occupying hepatic lesion. Biliary tree is of normal caliber. PANCREAS: No inflammation. No distinct mass. SPLEEN: Splenomegaly measuring 13.6 cm craniocaudal dimension. No lesion seen. ADRENALS: No nodule. No thickening. KIDNEYS/BLADDER: No hydronephrosis. No nephrolithiasis. No distinct renal mass. Urinary bladder g rossly unremarkable. BOWEL: Distended distal small bowel loops with wall thickening seen. Correlate for enteritis. Postope rative changes about the stomach and jejunal loops. No evidence for obstructive change. Nonvisualizat ion of the appendix. Scattered intracolonic debris GENITAL ORGANS: No gross abnormality. LYMPH NODES: No greater than 1cm abdominal or pelvic lymph nodes are appreciated. AORTA: No significant abnormality. OSSEOUS STRUCTURES: Degenerative changes lower lumbar spine. OTHER: No significant additional abnormality is seen. IMPRESSION: 1. Findings are suspicious for small bowel enteritis. 2. Cirrhotic liver disease. 3. Gallbladder hydrops with gallstones. No wall thickening or CBD dilatation at this time. Correlate clinically. 4. Splenomegaly.
[2022-06-07 13:33] LABS: Appearance,Urine Cloudy (Clear); Bilirubin,Urine Negative (Negative); Blood,Urine Large (Negative); Color,Urine Yellow; Glucose,Urine (UA) Negative (Negative); Ketones,Urine Negative (Negative); Leukocyte Esterase,Urine Large (Negative); Mucus,Urine Occasional /hpf; Nitrite,Urine Negative (Negative); Protein,Urine 1+ (Negative); RBC,Urine >182 /hpf (0-5); Specific Gravity,Urine 1.032 (1.001-1.035); Squamous Epithelial Cell,Urine 5 /hpf (0-4); WBC,Urine 168 /hpf (0-5)
--- NOTE | 2022-06-07 13:59 | US ---
EXAMINATION TYPE: US gallbladder DATE OF EXAM: 06/07/2022 COMPARISON: Same day CT 06/07/2022 CLINICAL HISTORY: RUQ pain. Pain TECHNIQUE: Multiple sonographic images of the right upper quadrant are obtained. FINDINGS: EXAM MEASUREMENTS: Liver Length: 15.2 cm Gallbladder Wall: 0.3 cm CBD: 0.6 cm Right Kidney: 11.0 x 4.4 x 5.1 cm REWORK OPERATOR NOTES: Pancreas: Obscured by bowel gas Liver: coarse echotexture, heterogeneous, known cirrhosis Gallbladder: Hydropic with gallstones as visualized on CT, wall not thickened Evidence for sonographic Wright's sign: Yes CBD: wnl Right Kidney: No evidence of hydro, mostly gassed out IMPRESSION: 1. Abnormal course echotexture of the liver with lobulation of the morphology compatible with cirrhos is. 2. Hydrops of the gallbladder with multiple gallstones. Gallbladder wall measures at the upper limits of normal 3 mm. Additionally, the CBD measures at the upper limits of normal at 6 mm.
[2022-06-07] MEDS ORDERED: KETOROLAC 15 MG/ML 1 ML VIAL IVP PRN (15:24)
[2022-06-07] MEDS ORDERED: ONDANSETRON 4 MG/2 ML VIAL IVP PRN (15:24)
[2022-06-07] MEDS ORDERED: NALOXONE 0.4 MG/ML 1 ML VIAL IV PRN (15:24)
[2022-06-07] MEDS: PIPERACILLIN-TAZOBACTAM 3.375 GM in SODIUM CHLORIDE 0.9% 100 ML IVPB SCH ×2 (15:45→23:28)
[2022-06-07 15:54] LABS: INR 1.1 (<1.2); Partial Thromboplastin Time 26.8 sec (22.0-30.0); Prothrombin Time 11.8 sec (9.0-12.0)
[2022-06-07] MEDS: HYDROmorphone 1 MG/ML 1 ML SYRINGE IVP PRN ×2 (18:31→23:30)
[2022-06-08] MEDS: HYDROmorphone 1 MG/ML 1 ML SYRINGE IVP PRN ×6 (03:44→23:19)
[2022-06-08] MEDS: PIPERACILLIN-TAZOBACTAM 3.375 GM in SODIUM CHLORIDE 0.9% 100 ML IVPB SCH ×3 (07:47→23:16)
--- NOTE | 2022-06-08 11:03 | P.CONS ---
History of Present Illness - Reason for Consult Consult date: 06/08/22 Cirrhosis of liver, gallbladder hydrops Requesting physician: Alison Rankin - Chief Complaint Abdominal pain - History of Present Illness This is a pleasant 52-year-old female who presented to the emergency department yesterday afternoon with complaints of abdominal pain. She has a past medical history includingalcoholic cirrhosis of the liver with history of esophageal varices, and previous history of gastric sleeve about 20 years ago. Patient states she had abdominal pain for the last 2-3 days. Associated with fever, and some nausea. Pain radiates across her stomach and in the right upper quadrant. She was diagnosed with alcoholic cirrhosis of the liver many years ago her last EGD was done in [address] Sandhu with findings of nonbleeding esophageal v arices, Cande-en-Y bypass and also at that time had a colonoscopy showing sigmoid diverticulosis. Patient states she has not followed up with anyone in the last 2 years for her cirrhosis of the liver. On admission she was noted to have elevated WBC, UA showing possible urinary tract infection. Gastroenterology was consulted for cirrhosis of the liver and gallbladder hydrops. She was afebrile on admission, she was started on Zosyn. She continues to have abdominal pain she states radiates across her upper abdomen into the right upper quadrant. No nausea or vomiting at this time. He was having normal bowel movements prior to admission. On a clear liquid diet currently. She underwent a CT of the abdomen and pelvis with contrast reporting findings suspicious for small bowel enteritis, cirrhotic liver disease and gallbladder hydrops with gallstones. No wall thickening or CBD dilation noted. Correlate clinically. Splenomegaly. She also underwent ultrasound of the gallbladder showing abnormal coarse echotexture of liver compatible with cirrhosis, hydrops of gallbladder with multiple gallstones. Gallbladder wall measures at the upper limits of normal of 3 mm additional CBD measures upper limits of normal at 6 mm. Labs WBC 24.5 hemoglobin 12 hematocrit 36 platelet count 194,000 INR 1.1 sodium 136 potassium 4.7 BUN 15 creatinine 0.6 total bilirubin 1.2 AST 54 ALT 42 alkaline phosphatase 121 amylase 46 lipase 17 pro calcitonin 0.66 Review of Systems REVIEW OF SYSTEMS: CARDIOPULMONARY: No chest pain or shortness of breath. Gastrointestinal: Upper abdominal pain radiating to the right upper quadrant. Nausea with no vomiting. No hematemesis, coffee-ground emesis. No rectal bleeding, or melena. GENITOURINARY: No dysuria or hematuria. MUSCULOSKELETAL: Reports normal range of motion. SKIN: No rashes. No jaundice. ENDOCRINE: No chills, fevers. No excessive weight gain or loss. No polydipsia or polyuria. PSYCHIATRIC: Unremarkable. NEUROLOGY: No change in mental status. Denies dizziness, headache. ENT: Vision unremarkable. CONSTITUTIONAL: No recent weight loss. No fever, chills, night sweats. Past Medical History Past Medical History: Liver Disease Additional Past Medical History / Comment(s): CIRRHOSIS. ESOPHAGEAL VARICIES History of Any Multi-Drug Resistant Organisms: None Reported Past Surgical History: Bariatric Surgery, Tubal Ligation Additional Past Surgical History / Comment(s): tummy tuck, gastric bypass, EGD, COLONOSCOPY Past Anesthesia/Blood Transfusion Reactions: No Reported Reaction Past Psychological History: Anxiety Smoking Status: Current every day smoker Past Alcohol Use History: None Reported Additional Past Alcohol Use History / Comment(s): HAS BEEN SMOKING 1/2 PPD FOR PAST 20 YRS Past Drug Use History: Marijuana Additional Drug Use History / Comment(s): SMOKES MARIJUANA 1-2 TIMES A WEEK - Past Family History Father Family Medical History: Deep Vein Thrombosis (DVT) Medications and Allergies Home Medications Medication Instructions Recorded Confirmed Type No Known Home Medications 06/07/22 06/07/22 History Allergies Allergy/AdvReac Type Severity Reaction Status Date / Time No Known Allergies Allergy Verified 06/07/22 15:14 Physical Exam Vitals: Vital Signs Temp Pulse Pulse Resp BP BP Pulse Ox 06/08/22 05:28 98.4 F 99 18 115/77 97 06/07/22 20:16 98.7 F 109 H 20 120/80 97 06/07/22 18:30 99.6 F 107 H 18 110/75 99 06/07/22 14:42 98.9 F 106 H 20 109/72 06/07/22 11:31 98.4 F 105 H 26 H 114/73 99 Intake and Output 06/07/22 06/08/22 06/08/22 22:59 06:59 14:59 Other: Voiding Method Toilet # Voids 1 Weight 74.843 kg General appearance: The patient is alert, oriented, appears in no acute distress. HET: Head is normocephalic and atraumatic. Conjunctiva pink. Sclera anicteric. Neck: Supple without lymphadenopathy. Trachea midline. Heart: S1 S2. Regular rate and rhythm. Lungs: Clear to auscultation. Abdomen: Soft, patient is very tender to palpation along the right upper quadrant and upper abdomen with palpation, nondistended with bowel sounds. No guarding or rigidity. Skin: No rashes. No jaundice. Extremities: Normal skin color and turgor. No pedal edema. Neurological: No focal deficits. Alert and oriented x3. Results CBC & Chem 7: 06/07/22 11:59 06/07/22 11:59 Labs: Abnormal Lab Results - Last 24 Hours (Table) 06/07/22 06/07/22 06/07/22 Range/Units 11:59 11:59 13:08 WBC 24.5 H (3.8-10.6) k/uL MCV 78.8 L (80.0-100.0) fL Neutrophils # 23.1 H (1.3-7.7) k/uL Lymphocytes # 0.8 L (1.0-4.8) k/uL Sodium 136 L (137-145) mmol/L Glucose 120 H (74-99) mg/dL AST 54 H (14-36) U/L ALT 42 H (4-34) U/L Lipase 17 L (23-300) U/L Procalcitonin (0.02-0.09) ng/mL Urine Appearance Cloudy H (Clear) Urine Protein 1+ H (Negative) Urine Blood Large H (Negative) Ur Leukocyte Esterase Large H (Negative) Urine RBC >182 H (0-5) /hpf Urine WBC 168 H (0-5) /hpf Ur Squamous Epith Cells 5 H (0-4) /hpf Urine Mucus Occasional H (None) /hpf 06/07/22 Range/Units 15:32 WBC (3.8-10.6) k/uL MCV (80.0-100.0) fL Neutrophils # (1.3-7.7) k/uL Lymphocytes # (1.0-4.8) k/uL Sodium (137-145) mmol/L Glucose (74-99) mg/dL AST (14-36) U/L ALT (4-34) U/L Lipase (23-300) U/L Procalcitonin 0.66 H (0.02-0.09) ng/mL Urine Appearance (Clear) Urine Protein (Negative) Urine Blood (Negative) Ur Leukocyte Esterase (Negative) Urine RBC (0-5) /hpf Urine WBC (0-5) /hpf Ur Squamous Epith Cells (0-4) /hpf Urine Mucus (None) /hpf Microbiology - Last 24 Hours (Table) 06/07/22 13:08 Urine Culture - Preliminary Urine,Voided Comments: CT of the abdomen and pelvis with contrast reporting findings suspicious for small bowel enteritis, cirrhotic liver disease and gallbladder hydrops with gallstones. No wall thickening or CBD dilation noted. Correlate clinically. Splenomegaly. Ultrasound of the gallbladder showing abnormal coarse echotexture of liver compatible with cirrhosis, hydrops of gallbladder with multiple gallstones. Gallbladder wall measures at the upper limits of normal of 3 mm additional CBD measures upper limits of normal at 6 mm. Assessment and Plan (1) Alcoholic cirrhosis of liver Narrative/Plan: 52-year-old female with a long-standing history of alcoholic cirrhosis of the liver who presented to the emergency department for complaints of abdominal pain mostly in the right upper quadrant and upper mid abdomen. Patient states she fe lt like she had a fever at home although she did not take her temperature. She was afebrile when she came into the hospital but was found to have an elevated white count of 24. She was started on IV Zosyn. She had a CT of the abdomen and pelvis with contrast as well as the ultrasound of the gallbladder both showing hydrops of the gallbladder with multiple gallstones. CBD within normal limits. Patient has mild elevation of AST and ALT consistent with underlying liver disease. Patient also has history of esophageal varices for which she is to undergo surveillance EGDs every 2 years. Last EGD was done in [address] Funez at that time she had nonbleeding varices. She also had a screening colonoscopy at that time which revealed sigmoid diverticulosis. Current Visit: Yes Status: Acute Code(s): K70.30 - ALCOHOLIC CIRRHOSIS OF LIVER WITHOUT ASCITES SNOMED Code(s): 392519703 (2) Abdominal pain Narrative/Plan: Gallbladder hydrops with multiple gallstones in acute severe right upper quadrant pain. Gen. surgery following for gallbladder. CT of the abdomen and pelvis showing gallbladder hydrops with gallstones, possible enteritis. No CBD dilation. Ultrasound reports, bladder hydrops and call stones, upper normal limits of CBD however 0.6 cm it is within normal limits for patient's age. Current Visit: Yes Status: Acute Code(s): R10.9 - UNSPECIFIED ABDOMINAL PAIN SNOMED Code(s): 74743677 (3) Gallbladder hydrops Current Visit: Yes Status: Acute Code(s): K82.1 - HYDROPS OF GALLBLADDER SNOMED Code(s): 56242340 Plan: 1. Continue symptomatic and supportive care 2. Continue with alcohol abstinence 3. Discussed with patient recommended outpatient EGD for esophageal varices surveillance 4. Daily CBC, CMP 5. No plans on endoscopic evaluation 6. Continue with recommendations from general surgery Thank you for this consultation, we will continue to follow. Dr. Baron Mazariegos I agree with the dictator's note, documented as a scribe by Allyson Trejo.
[2022-06-08] MEDS ORDERED: HYDROmorphone 0.5 MG/0.5 ML SYRINGE IVP PRN (11:32)
[2022-06-08 11:48] LABS: ALT 28 U/L (4-34); AST 30 U/L (14-36); African American GFR (CKD) >90 (>60 ml/min/1.73 sqM); Albumin 3.4 g/dL (3.5-5.0); Albumin/Globulin Ratio 0.9; Alkaline Phosphatase 111 U/L (38-126); Anion Gap 10 mmol/L; Blood Urea Nitrogen 18 mg/dL (7-17); Calcium 9.5 mg/dL (8.4-10.2); Carbon Dioxide 18 mmol/L (22-30); Chloride 108 mmol/L (98-107); Globulin 3.8 g/dL; Glucose 111 mg/dL (74-99); Lipase 12 U/L (23-300); Non-African American GFR(CKD) >90 (>60 ml/min/1.73 sqM); Potassium 4.4 mmol/L (3.5-5.1); Sodium 136 mmol/L (137-145); Total Bilirubin 0.8 mg/dL (0.2-1.3); Total Protein 7.2 g/dL (6.3-8.2)
[2022-06-08 12:11] LABS: Basophils # (A) 0.1 k/uL (0-0.2); Basophils % (A) 0 %; Eosinophils # (A) 0.1 k/uL (0-0.7); Eosinophils % (A) 0 %; HCT 37.5 % (34.0-46.0); Hypochromasia Moderate; Lymphocytes # (A) 0.9 k/uL (1.0-4.8); Lymphocytes % (A) 5 %; MCH 25.7 pg (25.0-35.0); MCHC 32.1 g/dL (31.0-37.0); Mean Platelet Volume 10.1; Monocytes # (A) 0.5 k/uL (0-1.0); Monocytes % (A) 3 %; Neutrophils # (A) 14.9 k/uL (1.3-7.7); Neutrophils % (A) 90 %; Platelet Count 157 k/uL (150-450); RBC 4.69 m/uL (3.80-5.40); RDW 15.4 % (11.5-15.5); WBC 16.6 k/uL (3.8-10.6)
[2022-06-08] MEDS: PANTOPRAZOLE 40 MG/10 ML VIAL IVP SCH ×2 (12:47→20:38)
--- NOTE | 2022-06-08 12:55 | HP ---
HISTORY AND PHYSICAL CHIEF COMPLAINT: Abdominal pain. HISTORY OF PRESENT ILLNESS: This is a 52-year-old with a past medical history of nonalcoholic cirrhosis liver, history of esophageal varices, history of GI bleed, was complaining of abdominal pain. CT scan showed suspicious small bowel enteritis, cirrhotic liver disease, gallbladder hydrops with gallstones, CBD is dilated. There is no history of any fever, rigors, or chills at this time. PAST MEDICAL HISTORY: History of cirrhosis, liver disease, esophageal varices. HOME MEDICATIONS: None. ALLERGIES: None. FAMILY HISTORY: History of DVT. SOCIAL HISTORY: History of smoking. No history of alcohol intake. REVIEW OF SYSTEMS: A 14-point review is negative except as mentioned. PHYSICAL EXAMINATION: VITAL SIGNS: Pulse is 99, blood pressure 115/70, respirations 18. HEENT: Conjunctivae normal. NECK: No jugular venous distention. No carotid bruit. CARDIOVASCULAR: S1, S2 muffled. RESPIRATIONS: Diminished breath sounds at the bases. ABDOMEN: Soft, mild diffuse distention, mild diffuse tenderness. No guarding, no rigidity. No masses palpable. LEGS: No edema, no swelling. NERVOUS SYSTEM: No focal deficits. LABS: WBC 24.5, sodium 136. ASSESSMENT: 1. Abdominal pain, possible acute cholecystitis and cholelithiasis. 2. Cirrhosis of liver with hydrops gallbladder. 3. Procalcitonin 0.66. 4. Possible acute urinary tract infection present on admission. 5. History of esophageal varices. 6. History of anxiety. 7. History of multiple medical issues. RECOMMENDATIONS: This 52-year-old woman presented with multiple complex medical issues, we will monitor the patient closely, initiate broad-spectrum IV antibiotics. I would also recommend Surgery and Infectious Disease evaluation. Otherwise, white count is also elevated, repeat labs, symptomatic treatment. Prognosis guarded because of multiple complex medical problems. See orders for details. We will closely follow with surgery. Gastroenterology notes appreciated. MMODL / IJN: [id number] /
--- NOTE | 2022-06-08 16:23 | P.GSCN ---
History of Present Illness Consult date: 06/08/22 History of present illness: CHIEF COMPLAINT: Abdominal pain HISTORY OF PRESENT ILLNESS: This is a 52-year-old female who known history of alcoholic cirrhosis. She reports her last alcoholic drink was 11 years ago. Patient has required paracentesis before. Patient reports over the last 2 days increasing right upper quadrant abdominal pain that radiates across upper abdomen. Patient also complaining of lower abdominal pain. She has felt feverish with sweats. She reports decreased appetite. Denies any nausea vomiting. Denies any change in bowel habits. She had a computed tomography scan abdomen and pelvis had shown suspicious findings for small bowel enteritis. Cirrhotic liver disease. Gallbladder hydrops with gallstones. Gallbladder ultrasound had showed evidence of hydrops of the gallbladder with multiple gallstones. Patient has been started on antibiotics. She is also followed by GI service. Patient's last colonoscopy was in 2019 with evidence of diverticulosis. Surgical history does include Cande-en-Y and tubal ligation. Patient had elevated white count and heart rate on admission. Mildly elevated LFTs. Patient seen and examined with Dr. olea PAST MEDICAL HISTORY: See below PAST SURGICAL HISTORY: See below MEDICATIONS: See below ALLERGIES: See below SOCIAL HISTORY: No illicit drug use. REVIEW OF SYSTEMS: CONSTITUTIONAL: Denies fever or chills. HEENT: Denies blurred vision, vision changes, or eye pain. Denies hemoptysis CARDIOVASCULAR: Denies chest pain or pressure. RESPIRATORY: No shortness of breath. GASTROINTESTINAL: See HPI for pertinent findings HEMATOLOGIC: Denies bleeding disorders. GENITOURINARY: Denies any blood in urine or increased urinary frequency. SKIN: Denies pruitis. Denies rash. PHYSICAL EXAM: VITAL SIGNS: Reviewed GENERAL: Well-developed in no acute distress. HEENT: No sclera icterus. Extraocular movements grossly intact. Moist buccal mucosa. Head is atraumatic, normocephalic. No nasal drainage. ABDOMEN: Soft. Nondistended. Tenderness with palpation in the right upper qu adrant and across lower abdomen NEUROLOGIC: Alert and oriented. Cranial nerves II through XII grossly intact. LABORATORY DATA: WBC 24.5 down to 16 hemoglobin 12 plt 157 Sodium is 136 potassium 4.4 creatinine 0.54 Lactic acid 1.6 total bili 0.8 AST 54 down to 30 ALT 42 down to 28 alk phos 111 Lipase 17 Proclacitonin 0.66 urinalysis evidence of infection IMAGING: Computed tomography scan abdomen and pelvis findings are suspicious for small bowel enteritis. Cirrhotic liver disease. gallbladder hydrops with gallstones. No wall thickening or CBD dilation at this time. splenomegaly Gallbladder ultrasound abnormal coarse echotexture of the liver with lobulation of the morphology compatible with cirrhosis. Hydrops of the gallbladder with multiple gallstones. Color wall measured at upper limits of normal 3 mm. Additionally the CBD measures upper limits of normal at 6 mm ASSESSMENT: 1. Abdominal pain 2. Chronic cholecystitis 3. Small bowel enteritis 4. History of liver cirrhosis and alcohol use PLAN: -Continue to monitor -Continue supportive care -Continue antibiotics -Continue clear liquid diet -Continue IV fluids Physician Critical Care Cns note has been reviewed by physician. Signing provider agrees with the documented findings, assessment, and plan of care. Past Medical History Past Medical History: Liver Disease Additional Past Medical History / Comment(s): CIRRHOSIS. ESOPHAGEAL VARICIES History of Any Multi-Drug Resistant Organisms: None Reported Past Surgical History: Bariatric Surgery, Tubal Ligation Additional Past Surgical History / Comment(s): tummy tuck, gastric bypass, EGD, COLONOSCOPY Past Anesthesia/Blood Transfusion Reactions: No Reported Reaction Past Psychological History: Anxiety Smoking Status: Current every day smoker Past Alcohol Use History: None Reported Additional Past Alcohol Use History / Comment(s): HAS BEEN SMOKING 1/2 PPD FOR PAST 20 YRS Past Drug Use History: Marijuana Additional Drug Use History / Comment(s): SMOKES MARIJUANA 1-2 TIMES A WEEK - Past Family History Father Family Medical History: Deep Vein Thrombosis (DVT) Medications and Allergies Home Medications Medication Instructions Recorded Confirmed Type No Known Home Medications 06/07/22 06/07/22 History Allergies Allergy/AdvReac Type Severity Reaction Status Date / Time No Known Allergies Allergy Verified 06/07/22 15:14 Surgical - Exam Vital Signs Temp Pulse Resp BP Pulse Ox 98.4 F 105 H 26 H 114/73 99 06/07/22 11:31 06/07/22 11:31 06/07/22 11:31 06/07/22 11:31 06/07/22 11:31 Results - Labs 06/08/22 11:16 06/08/22 11:16 Abnormal Lab Results - Last 24 Hours (Table) 06/07/22 06/07/22 06/07/22 Range/Units 11:59 11:59 13:08 WBC 24.5 H (3.8-10.6) k/uL MCV 78.8 L (80.0-100.0) fL Neutrophils # 23.1 H (1.3-7.7) k/uL Lymphocytes # 0.8 L (1.0-4.8) k/uL Sodium 136 L (137-145) mmol/L Glucose 120 H (74-99) mg/dL AST 54 H (14-36) U/L ALT 42 H (4-34) U/L Lipase 17 L (23-300) U/L Procalcitonin (0.02-0.09) ng/mL Urine Appearance Cloudy H (Clear) Urine Protein 1+ H (Negative) Urine Blood Large H (Negative) Ur Leukocyte Esterase Large H (Negative) Urine RBC >182 H (0-5) /hpf Urine WBC 168 H (0-5) /hpf Ur Squamous Epith Cells 5 H (0-4) /hpf Urine Mucus Occasional H (None) /hpf 06/07/22 Range/Units 15:32 WBC (3.8-10.6) k/uL MCV (80.0-100.0) fL Neutrophils # (1.3-7.7) k/uL Lymphocytes # (1.0-4.8) k/uL Sodium (137-145) mmol/L Glucose (74-99) mg/dL AST (14-36) U/L ALT (4-34) U/L Lipase (23-300) U/L Procalcitonin 0.66 H (0.02-0.09) ng/mL Urine Appearance (Clear) Urine Protein (Negative) Urine Blood (Negative) Ur Leukocyte Esterase (Negative) Urine RBC (0-5) /hpf Urine WBC (0-5) /hpf Ur Squamous Epith Cells (0-4) /hpf Urine Mucus (None) /hpf Microbiology - Last 24 Hours (Table) 06/07/22 13:08 Urine Culture - Preliminary Urine,Voided Diabetes panel 06/07/22 Range/Units 11:59 Sodium 136 L (137-145) mmol/L Potassium 4.7 (3.5-5.1) mmol/L Chloride 105 (98-107) mmol/L Carbon Dioxide 24 (22-30) mmol/L BUN 15 (7-17) mg/dL Creatinine 0.66 (0.52-1.04) mg/dL Glucose 120 H (74-99) mg/dL Calcium 9.5 (8.4-10.2) mg/dL AST 54 H (14-36) U/L ALT 42 H (4-34) U/L Alkaline Phosphatase 121 (38-126) U/L Total Protein 7.9 (6.3-8.2) g/dL Albumin 4.1 (3.5-5.0) g/dL Calcium panel 06/07/22 Range/Units 11:59 Calcium 9.5 (8.4-10.2) mg/dL Albumin 4.1 (3.5-5.0) g/dL Pituitary panel 06/07/22 Range/Units 11:59 Sodium 136 L (137-145) mmol/L Potassium 4.7 (3.5-5.1) mmol/L Chloride 105 (98-107) mmol/L Carbon Dioxide 24 (22-30) mmol/L BUN 15 (7-17) mg/dL Creatinine 0.66 (0.52-1.04) mg/dL Glucose 120 H (74-99) mg/dL Calcium 9.5 (8.4-10.2) mg/dL Adrenal panel 06/07/22 Range/Units 11:59 Sodium 136 L (137-145) mmol/L Potassium 4.7 (3.5-5.1) mmol/L Chloride 105 (98-107) mmol/L Carbon Dioxide 24 (22-30) mmol/L BUN 15 (7-17) mg/dL Creatinine 0.66 (0.52-1.04) mg/dL Glucose 120 H (74-99) mg/dL Calcium 9.5 (8.4-10.2) mg/dL Total Bilirubin 1.2 (0.2-1.3) mg/dL AST 54 H (14-36) U/L ALT 42 H (4-34) U/L Alkaline Phosphatase 121 (38-126) U/L Total Protein 7.9 (6.3-8.2) g/dL Albumin 4.1 (3.5-5.0) g/dL
--- NOTE | 2022-06-08 23:32 | P.CONS ---
History of Present Illness - Reason for Consult Consult date: 06/08/22 sepsis Requesting physician: Lucy Alcaraz - Chief Complaint Abdominal pain x few days - History of Present Illness Patient is a 52-year-old female presenting to the ER yesterday morning for evaluation of abdominal pain patient pain started the night before present ation to the hospital pain has been mostly across the upper abdominal area describing it to be more of a sharp in nature almost 10 out of 10 in severity denies any nausea or vomiting did have decreased appetite denies any constipation or diarrhea with the symptom the patient was evaluated by the ER physician on arrival to the ER patient was afebrile and no fever has been recorded subsequently patient did have white count 24.5 with a left shift repeat is down to 16,000 and kidney function has been normal liver exams are mildly elevated patient did have a positive UA however denies significant burning frequency suprapubic pain patient did have a CT of abdominal pelvis which showed distended small bowel loops with wall thickening correlate for enteritis liver cirrhosis gallbladder hydrops with gallstone no wall thickening patient also have a gallbladder ultrasound with gallbladder wall and CBD upper limits of normal patient is currently being treated with Zosyn and is being followed by GI and surgical team infectious disease was consulted at this morning with questionable sepsis Review of Systems Positive point has been mentioned in the HPI rest of the systems are negative Past Medical History Past Medical History: Liver Disease Additional Past Medical History / Comment(s): CIRRHOSIS. ESOPHAGEAL VARICIES History of Any Multi-Drug Resistant Organisms: None Reported Past Surgical History: Bariatric Surgery, Tubal Ligation Additional Past Surgical History / Comment(s): tummy tuck, gastric bypass, EGD, COLONOSCOPY Past Anesthesia/Blood Transfusion Reactions: No Reported Reaction Past Psychological History: Anxiety Smoking Status: Current every day smoker Past Alcohol Use History: None Reported Additional Past Alcohol Use History / Comment(s): HAS BEEN SMOKING 1/2 PPD FOR PAST 20 YRS Past Drug Use History: Marijuana Additional Drug Use History / Comment(s): SMOKES MARIJUANA 1-2 TIMES A WEEK - Past Family History Father Family Medical History: Deep Vein Thrombosis (DVT) Medications and Allergies Home Medications Medication Instructions Recorded Confirmed Type Amoxic-Pot Clav 875-125Mg 1 tab PO BID 7 Days #14 tab 06/15/22 Rx [Augmentin 875-125] Dicyclomine [Bentyl] 10 mg PO TID PRN #20 cap 06/15/22 Rx Folic Acid 1 mg PO DAILY@1200 #30 tab 06/15/22 Rx HYDROcodone/APAP 5-325MG [[place] 1 each PO Q6HR PRN 5 Days #20 tab 06/15/22 Rx 5-325] Multivitamins, Thera [Multivitamin 1 each PO DAILY@1200 #30 tab 06/15/22 Rx (formulary)] Ondansetron [Zofran] 4 mg PO Q6HR PRN #20 tab 06/15/22 Rx Pantoprazole Sodium [Protonix] 40 mg PO BID 30 Days #60 tab 06/15/22 Rx Thiamine [Vitamin B-1] 100 mg PO DAILY@1200 #30 tab 06/15/22 Rx Allergies Allergy/AdvReac Type Severity Reaction Status Date / Time No Known Allergies Allergy Verified 06/07/22 15:14 Physical Exam Vitals: Vital Signs Temp Pulse Pulse Resp BP BP Pulse Ox 06/08/22 12:20 97.7 F 06/08/22 08:00 99 18 06/08/22 05:28 98.4 F 99 18 115/77 97 06/07/22 20:16 98.7 F 109 H 20 120/80 97 06/07/22 18:30 99.6 F 107 H 18 110/75 99 Intake and Output 06/07/22 06/08/22 06/08/22 22:59 06:59 14:59 Other: Voiding Method Toilet Toilet # Voids 1 Weight 74.843 kg GENERAL DESCRIPTION: Middle-aged female lying in bed, no distress. No tachypnea or accessory muscle of respiration use. HEENT: Shows Pallor , no scleral icterus. Oral mucous membrane is dry. No pharyngeal erythema or thrush NECK: Trachea central, no thyromegaly. LUNGS: Unlabored breathing. Clear to auscultation anteriorly. No wheeze or crackle. HEART: S1, S2, regular rate and rhythm. No loud murmur ABDOMEN: Soft, mild abdominal distention and tenderness EXTREMITIES: No edema of feet. SKIN: No rash, no masses palpable. NEUROLOGICAL: The patient is awake, alert, oriented x3, mood and affect normal. Results CBC & Chem 7: 06/11/22 05:57 06/11/22 05:57 Labs: Abnormal Lab Results - Last 24 Hours (Table) 06/07/22 06/08/22 06/08/22 Range/Units 15:32 11:16 11:16 WBC 16.6 H (3.8-10.6) k/uL Neutrophils # 14.9 H (1.3-7.7) k/uL Lymphocytes # 0.9 L (1.0-4.8) k/uL Sodium 136 L (137-145) mmol/L Chloride 108 H (98-107) mmol/L Carbon Dioxide 18 L (22-30) mmol/L BUN 18 H (7-17) mg/dL Glucose 111 H (74-99) mg/dL Albumin 3.4 L (3.5-5.0) g/dL Lipase 12 L (23-300) U/L Procalcitonin 0.66 H (0.02-0.09) ng/mL Microbiology - Last 24 Hours (Table) 06/07/22 13:08 Urine Culture - Preliminary Urine,Voided Assessment and Plan (1) Abdominal pain Status: Acute Code(s): R10.9 - UNSPECIFIED ABDOMINAL PAIN SNOMED Code(s): 06109335 (2) Gallbladder hydrops Status: Acute Code(s): K82.1 - HYDROPS OF GALLBLADDER SNOMED Code(s): 90396287 Plan: 1patient presented hospital with acute abdominal pain mostly in the right upper quadrant area and the patient is tender to touch she did have evidence of gallstone and ultrasound shows mild thickening of the gallbladder and CBD was upper limits of normal question of possible acute cholecystitis in this patient also with elevated white count we will need to cover for the enteric gram- negative both aerobes and anaerobes clinically doubt enteritis in this patient denies any history of diarrhea. 2patient may benefit from HIDA scan. 3continue with Zosyn and general surgeon already on case. We will follow on clinical condition and cultures to further adjust medication if needed Thank you for this consultation will follow this patient along with you Time with Patient: Greater than 30
[2022-06-09] MEDS: HYDROmorphone 1 MG/ML 1 ML SYRINGE IVP PRN ×4 (03:41→21:26)
[2022-06-09 06:38] LABS: Basophils # (A) 0.1 k/uL (0-0.2); Basophils % (A) 1 %; Eosinophils # (A) 0.1 k/uL (0-0.7); Eosinophils % (A) 1 %; HGB 12.7 gm/dL (11.4-16.0); Hypochromasia Marked; Lymphocytes # (A) 0.9 k/uL (1.0-4.8); Lymphocytes % (A) 6 %; MCH 25.1 pg (25.0-35.0); MCHC 30.2 g/dL (31.0-37.0); Mean Platelet Volume 9.3; Monocytes # (A) 0.6 k/uL (0-1.0); Monocytes % (A) 4 %; Neutrophils # (A) 14.2 k/uL (1.3-7.7); Neutrophils % (A) 89 %; Platelet Count 244 k/uL (150-450); RBC 5.06 m/uL (3.80-5.40); RDW 15.5 % (11.5-15.5)
[2022-06-09 06:58] LABS: ALT 24 U/L (4-34); AST 23 U/L (14-36); African American GFR (CKD) >90 (>60 ml/min/1.73 sqM); Albumin 3.6 g/dL (3.5-5.0); Albumin/Globulin Ratio 0.9; Alkaline Phosphatase 118 U/L (38-126); Anion Gap 9 mmol/L; Blood Urea Nitrogen 16 mg/dL (7-17); Calcium 9.4 mg/dL (8.4-10.2); Carbon Dioxide 20 mmol/L (22-30); Chloride 106 mmol/L (98-107); Globulin 4.1 g/dL; Glucose 100 mg/dL (74-99); Non-African American GFR(CKD) >90 (>60 ml/min/1.73 sqM); Potassium 4.2 mmol/L (3.5-5.1); Sodium 135 mmol/L (137-145); Total Bilirubin 1.1 mg/dL (0.2-1.3); Total Protein 7.7 g/dL (6.3-8.2)
[2022-06-09] MEDS: PANTOPRAZOLE 40 MG/10 ML VIAL IVP SCH ×2 (08:18→20:28)
[2022-06-09] MEDS: PIPERACILLIN-TAZOBACTAM 3.375 GM in SODIUM CHLORIDE 0.9% 100 ML IVPB SCH ×3 (08:18→23:20)
--- NOTE | 2022-06-09 16:09 | P.PN ---
Subjective Progress Note Date: 06/09/22 CHIEF COMPLAINT: Abdominal pain HISTORY OF PRESENT ILLNESS: Patient continues to complain of abdominal pain. Patient does have diffuse pain. Pain mostly localized in the right upper quadrant and lower abdomen. She denies any nausea or vomiting. She did have a low-grade temp 99 has been mildly tachycardic. White count 16. She's currently on a clear liquid diet. Patient seen by infectious disease. Recommendations have been noted. As an service has ordered HIDA scan. She is on antibiotics. Patient seen and examined with Dr. olea PHYSICAL EXAM: VITAL SIGNS: Reviewed. GENERAL: Well-developed in no acute distress. HEENT: No sclera icterus. Extraocular movements grossly intact. Moist buccal mucosa. Head is atraumatic, normocephalic. ABDOMEN: Soft. Nondistended. Diffuse tenderness. With more tenderness in the right upper quadrant and lower abdomen NEUROLOGIC: Alert and oriented. Cranial nerves II through XII grossly intact. ASSESSMENT: 1. Abdominal pain 2. Chronic cholecystitis 3. Gallbladder ultrasound with hydrops of gallbladder with multiple gallstones 4. Small bowel enteritis 5. History of liver cirrhosis and alcohol use PLAN: -Follow up on HIDA scan results -Continue clear liquid diet -Continue IV fluids -Continue antibiotics -Continue pain medication Physician Ecommerce Analyst note has been reviewed by physician. Signing provider agrees with the documented findings, assessment, and plan of care. Objective - Vital Signs Vital signs: Vital Signs Temp 98.2 F 06/09/22 12:31 Pulse 100 06/09/22 12:31 Resp 16 06/09/22 12:31 BP 118/81 06/09/22 12:31 Pulse Ox 98 06/09/22 12:31 FiO2 Intake & Output 06/08/22 06/09/22 06/09/22 18:59 06:59 18:59 Intake Total 200 240 Balance 200 240 Intake: Intake, IV Titration 200 Amount Piperacillin-Tazobactam 3 200 .375 gm In Sodium Chloride 0.9% 100 ml @ 25 mls/hr IVPB Q8HR [facility] Rx# :[id number] Oral 240 Other: Voiding Method Toilet Toilet # Voids 3 1 - Labs CBC & Chem 7: 06/09/22 06:10 06/09/22 06:10 Labs: Abnormal Lab Results - Last 24 Hours (Table) 06/09/22 06/09/22 Range/Units 06:10 06:10 WBC 16.0 H (3.8-10.6) k/uL MCHC 30.2 L (31.0-37.0) g/dL Neutrophils # 14.2 H (1.3-7.7) k/uL Lymphocytes # 0.9 L (1.0-4.8) k/uL Sodium 135 L (137-145) mmol/L Carbon Dioxide 20 L (22-30) mmol/L Glucose 100 H (74-99) mg/dL Microbiology - Last 24 Hours (Table) 06/07/22 13:08 Urine Culture - Final Urine,Voided 06/07/22 15:25 Blood Culture - Preliminary Blood No Growth after 24 hours 06/07/22 15:10 Blood Culture - Preliminary Blood No Growth after 24 hours
--- NOTE | 2022-06-09 16:45 | P.PN ---
Subjective Progress Note Date: 06/09/22 Principal diagnosis: Cholecystitis/enteritis Patient is a 52-year-old female presenting to the ER yesterday morning for evaluation of abdominal pain patient pain started the night before presentation to the hospital , patient did have elevated white count CT abdominal pelvis did shows distended small bowel loops concerning for enteritis and gallbladder hydrops suspicious for cholecystitis and diffuse mild thickening. On today's evaluation that is 06/09/2022, the patient did have a low-grade fever last evening of 99.9F, the patient is afebrile since then patient is breathing comfortably on room air. Complaining of abdominal pain and nausea but no vomiting or diarrhea or chest pain shortness of breath or cough Objective - Vital Signs Vital signs: Vital Signs Temp 98.2 F 06/09/22 12:31 Pulse 100 06/09/22 12:31 Resp 16 06/09/22 12:31 BP 118/81 06/09/22 12:31 Pulse Ox 98 06/09/22 12:31 FiO2 Intake & Output 06/08/22 06/09/22 06/09/22 18:59 06:59 18:59 Intake Total 200 240 Balance 200 240 Intake: Intake, IV Titration 200 Amount Piperacillin-Tazobactam 3 200 .375 gm In Sodium Chloride 0.9% 100 ml @ 25 mls/hr IVPB Q8HR [facility] Rx# :[id number] Oral 240 Other: Voiding Method Toilet Toilet # Voids 3 1 - Exam GENERAL DESCRIPTION: Middle-aged female lying in bed in no distress RESPIRATORY SYSTEM: Unlabored breathing , decreased breath sounds at bases HEART: S1 S2 regular rate and rhythm , ABDOMEN: Soft , mild distention and tenderness EXTREMITIES: No edema feet - Labs CBC & Chem 7: 06/09/22 06:10 06/09/22 06:10 Labs: Abnormal Lab Results - Last 24 Hours (Table) 06/09/22 06/09/22 Range/Units 06:10 06:10 WBC 16.0 H (3.8-10.6) k/uL MCHC 30.2 L (31.0-37.0) g/dL Neutrophils # 14.2 H (1.3-7.7) k/uL Lymphocytes # 0.9 L (1.0-4.8) k/uL Sodium 135 L (137-145) mmol/L Carbon Dioxide 20 L (22-30) mmol/L Glucose 100 H (74-99) mg/dL Microbiology - Last 24 Hours (Table) 06/07/22 13:08 Urine Culture - Final Urine,Voided 06/07/22 15:25 Blood Culture - Preliminary Blood No Growth after 24 hours 06/07/22 15:10 Blood Culture - Preliminary Blood No Growth after 24 hours Assessment and Plan (1) Enteritis Current Visit: Yes Status: Acute Code(s): K52.9 - NONINFECTIVE GASTROENTERITIS AND COLITIS, UNSPECIFIED SNOMED Code(s): 59404620 (2) Gallbladder hydrops Current Visit: Yes Status: Acute Code(s): K82.1 - HYDROPS OF GALLBLADDER SNOMED Code(s): 16241929 Plan: 1patient presented hospital with acute abdominal pain mostly in the right upper quadrant area and the patient is tender to touch she did have evidence of gallstone and ultrasound shows mild thickening of the gallbladder and CBD was upper limits of normal question of possible acute cholecystitis in this patient also with elevated white count we will need to cover for the enteric gram- negative both aerobes and anaerobes clinically doubt enteritis in this patient denies any history of diarrhea. 2patient may benefit from HIDA scan this was discussed with the admitting team. 3patient to continue with Zosyn and monitor clinical course closely Time with Patient: Less than 30
--- NOTE | 2022-06-09 18:33 | NM ---
EXAMINATION TYPE: NM hepatobiliary w CCK DATE OF EXAM: 06/09/2022 COMPARISON: NONE INDICATION: Cholecystitis. TECHNIQUE: After the intravenous administration of 5.3 mCi Tc 99m Mebrofenin hepatobiliary scintigrap hy is performed. Images were obtained immediately post injection. FINDINGS: There is prompt uptake and excretion of radiotracer by the liver. Extrahepatic ducts are identified at 8 minutes. The gallbladder is visualized within 42 minutes. Small bowel activity is noted within 16 minutes. At one hour CCK was administered, patient was injected with 1.5 mcg of Kinevac, and gallbladder eject ion fraction is calculated at 62 %, which is in the normal range.. (Normal >35% and <80%.). IMPRESSION: 1. Normal hepatobiliary scan.
[2022-06-09] MEDS: IBUPROFEN 400 MG TAB PO PRN (20:32)
--- NOTE | 2022-06-10 07:08 | PN ---
PROGRESS NOTE DATE OF SERVICE: 06/09/2022 SUBJECTIVE: This is a 52-year-old woman, who was admitted with abdominal pain with possible acute cholecystitis and cholelithiasis, being closely monitored. Surgery is monitoring the patient on a conservative basis. The patient is running a fever. OBJECTIVE: VITAL SIGNS: Pulse is 89, blood pressure 118/83, respirations 15. HEENT: Conjunctivae normal. NECK: No JVD. CARDIOVASCULAR: S1, S2 muffled. RESPIRATIONS: Breath sounds diminished at the bases. ABDOMEN: Soft, mild diffuse tenderness. LEGS: No edema. NERVOUS SYSTEM: No focal deficits. LABORATORY DATA: Reviewed. ASSESSMENT: 1. Abdominal pain, possible acute cholecystitis and cholelithiasis. 2. Cirrhosis of liver with hydrops gallbladder. 3. Procalcitonin 0.66. 4. Possible acute urinary tract infection present on admission. 5. History of esophageal varices. 6. History of anxiety. 7. Multiple medical issues. RECOMMENDATIONS: Recommend to continue current medications. Continue symptomatic treatment. I recommend empiric antibiotics. Obtain cultures. The patient is on IV Zosyn. Closely monitor with Surgery and Infectious Disease. Further recommendations to follow. Repeat labs. MMODL / IJN: [id number] /
[2022-06-10] MEDS: PIPERACILLIN-TAZOBACTAM 3.375 GM in SODIUM CHLORIDE 0.9% 100 ML IVPB SCH ×3 (07:43→23:17)
[2022-06-10] MEDS: PANTOPRAZOLE 40 MG/10 ML VIAL IVP SCH ×2 (07:43→20:05)
[2022-06-10] MEDS: HYDROmorphone 0.5 MG/0.5 ML SYRINGE IVP PRN ×5 (08:46→23:19)
--- NOTE | 2022-06-10 08:49 | P.PN ---
Subjective Progress Note Date: 06/09/22 Principal diagnosis: Abdominal pain, cirrhosis of the liver This is a pleasant 52-year-old female who presented to the emergency department yesterday afternoon with complaints of abdominal pain. She has a past medical history includingalcoholic cirrhosis of the liver with history of esophageal varices, and previous history of gastric sleeve about 20 years ago. Patient states she had abdominal pain for the last 2-3 days. Associated with fever, and some nausea. Pain radiates across her stomach and in the right upper quadrant. She was diagnosed with alcoholic cirrhosis of the liver many years ago her last EGD was done in [address] Sandhu with findings of nonbleeding esophageal varices, Cande-en-Y bypass and also at that time had a colonoscopy showing sigmoid diverticulosis. Patient states she has not followed up with anyone in the last 2 years for her cirrhosis of the liver. On admission she was noted to have elevated WBC, UA showing possible urinary tract infection. Gastroenterology was consulted for cirrhosis of the liver and gallbladder hydrops. She was afebrile on admission, she was started on Zosyn. She continues to have abdominal pain she states radiates across her upper abdomen into the right upper quadrant. No nausea or vomiting at this time. He was having normal bowel movements prior to admission. On a clear liquid diet currently. She underwent a CT of the abdomen and pelvis with contrast reporting findings suspicious for small bowel enteritis, cirrhotic liver disease and gallbladder hydrops with gallstones. No wall thickening or CBD dilation noted. Correlate clinically. Splenomegaly. She also underwent ultrasound of the gallbladder showing abnormal coarse echotexture of liver compatible with cirrhosis, hydrops of gallbladder with multiple gallstones. Gallbladder wall measures at the upper limits of normal of 3 mm additional CBD measures upper limits of normal at 6 mm. 06/09/2022. Patient seen and examined is a follow-up for abdominal pain. She continues to have abdominal pain that's across her abdomen. She's been up and showering this morning. She has on no nausea or vomiting. She's been afebrile. White count improving to 16 today down from 24. She remains on IV Zosyn. Infectious disease is following as well. Objective - Vital Signs Vital signs: Vital Signs Temp 98.9 F 06/09/22 04:11 Pulse 101 H 06/09/22 04:11 Resp 15 06/09/22 04:11 BP 112/73 06/09/22 04:11 Pulse Ox 93 L 06/09/22 04:11 FiO2 Intake & Output 06/08/22 06/09/22 06/09/22 18:59 06:59 18:59 Intake Total 200 240 Balance 200 240 Intake: Intake, IV Titration 200 Amount Piperacillin-Tazobactam 3 200 .375 gm In Sodium Chloride 0.9% 100 ml @ 25 mls/hr IVPB Q8HR [facility] Rx# :[id number] Oral 240 Other: Voiding Method Toilet Toilet # Voids 3 1 - Exam General appearance: The patient is alert, oriented, appears in no acute distress. HET: Head is normocephalic and atraumatic. Conjunctiva pink. Sclera anicteric. Neck: Supple without lymphadenopathy. Abdomen: Soft, diffuse tenderness greatest in the right upper quadrant nondistended with bowel sounds. No guarding or rigidity. Extremities: Normal skin color and turgor. No pedal edema Skin: No rashes, no jaundice Neurological: No focal deficits. Alert and oriented. - Labs CBC & Chem 7: 06/09/22 06:10 06/09/22 06:10 Labs: Abnormal Lab Results - Last 24 Hours (Table) 06/08/22 06/08/22 06/09/22 Range/Units 11:16 11:16 06:10 WBC 16.6 H 16.0 H (3.8-10.6) k/uL MCHC 30.2 L (31.0-37.0) g/dL Neutrophils # 14.9 H 14.2 H (1.3-7.7) k/uL Lymphocytes # 0.9 L 0.9 L (1.0-4.8) k/uL Sodium 136 L (137-145) mmol/L Chloride 108 H (98-107) mmol/L Carbon Dioxide 18 L (22-30) mmol/L BUN 18 H (7-17) mg/dL Glucose 111 H (74-99) mg/dL Albumin 3.4 L (3.5-5.0) g/dL Lipase 12 L (23-300) U/L 06/09/22 Range/Units 06:10 WBC (3.8-10.6) k/uL MCHC (31.0-37.0) g/dL Neutrophils # (1.3-7.7) k/uL Lymphocytes # (1.0-4.8) k/uL Sodium 135 L (137-145) mmol/L Chloride (98-107) mmol/L Carbon Dioxide 20 L (22-30) mmol/L BUN (7-17) mg/dL Glucose 100 H (74-99) mg/dL Albumin (3.5-5.0) g/dL Lipase (23-300) U/L Microbiology - Last 24 Hours (Table) 06/07/22 13:08 Urine Culture - Final Urine,Voided 06/07/22 15:25 Blood Culture - Preliminary Blood No Growth after 24 hours 06/07/22 15:10 Blood Culture - Preliminary Blood No Growth after 24 hours Assessment and Plan (1) Alcoholic cirrhosis of liver Narrative/Plan: 52-year-old female with a long-standing history of alcoholic cirrhosis of the liver who presented to the emergency department for complaints of abdominal pain mostly in the right upper quadrant and upper mid abdomen. Patient states she felt like she had a fever at home although she did not take her temperature. She was afebrile when she came into the hospital but was found to have an elevated white count of 24. She was started on IV Zosyn. She had a CT of the abdomen and pelvis with contrast as well as the ultrasound of the gallbladder both showing hydrops of the gallbladder with multiple gallstones. CBD within normal limits. Patient has mild elevation of AST and ALT consistent with underlying liver disease. Patient also has history of esophageal varices for which she is to undergo surveillance EGDs every 2 years. Last EGD was done in [address] Funez at that time she had nonbleeding varices. She also had a screening colonoscopy at that time which revealed sigmoid diverticulosis. Current Visit: Yes Status: Acute Code(s): K70.30 - ALCOHOLIC CIRRHOSIS OF LIVER WITHOUT ASCITES SNOMED Code(s): 237867155 (2) Abdominal pain Narrative/Plan: Gallbladder hydrops with multiple gallstones in acute severe right upper quadrant pain. Gen. surgery following for gallbladder. CT of the abdomen and pelvis showing gallbladder hydrops with gallstones, possible enteritis. No CBD dilation. Ultrasound reports, bladder hydrops and call stones, upper normal limits of CBD however 0.6 cm it is within normal limits for patient's age. Defer cholelithiasis and abdominal pain to general surgery Current Visit: Yes Status: Acute Code(s): R10.9 - UNSPECIFIED ABDOMINAL PAIN SNOMED Code(s): 66759069 (3) Gallbladder hydrops Current Visit: Yes Status: Acute Code(s): K82.1 - HYDROPS OF GALLBLADDER SNOMED Code(s): 40439986 Plan: 1. Continue symptomatic and supportive care 2. Continue with alcohol abstinence 3. Discussed with patient recommended outpatient EGD for esophageal varices surveillance 4. Continue with recommendations from general surgery Thank you for this consultation, we will continue to follow. Dr. Baron Mazariegos I agree with the dictator's note, documented as a scribe by Allyson Trejo.
[2022-06-10 10:46] VITALS: BMI 25.8
[2022-06-10] MEDS: MULTIVITAMINS, THERA 1 EACH TAB PO SCH (12:10)
[2022-06-10] MEDS: THIAMINE 100 MG TAB PO SCH (12:10)
[2022-06-10] MEDS: FOLIC ACID 1 MG TAB PO SCH (12:10)
--- NOTE | 2022-06-10 12:21 | P.PN ---
Subjective Progress Note Date: 06/10/22 Principal diagnosis: Cholecystitis/enteritis Patient is a 52-year-old female presenting to the ER yesterday morning for evaluation of abdominal pain patient pain started the night before presentation to the hospital , patient did have elevated white count CT abdominal pelvis did shows distended small bowel loops concerning for enteritis and gallbladder hydrops suspicious for cholecystitis and diffuse mild thickening. On today's evaluation that is 06/10/2022, the patient has been afebrile, the patient is breathing comfortably on room air patient abdominal pain is slightly decreased in intensity some nausea but no vomiting patient denies having any diarrhea and no bowel movement since admission to the hospital Objective - Vital Signs Vital signs: Vital Signs Temp 97.5 F L 06/10/22 03:52 Pulse 86 06/10/22 03:52 Resp 14 06/10/22 03:52 BP 102/67 06/10/22 03:52 Pulse Ox 95 06/10/22 03:52 FiO2 Intake & Output 06/09/22 06/10/22 06/10/22 18:59 06:59 18:59 Intake Total 360 Balance 360 Weight 74.843 kg Intake: Oral 360 Other: Voiding Method Toilet # Voids 3 1 - Exam GENERAL DESCRIPTION: Middle-aged female lying in bed in no distress RESPIRATORY SYSTEM: Unlabored breathing , decreased breath sounds at bases HEART: S1 S2 regular rate and rhythm , ABDOMEN: Soft , mild distention and tenderness EXTREMITIES: No edema feet - Labs CBC & Chem 7: 06/09/22 06:10 06/09/22 06:10 Labs: Microbiology - Last 24 Hours (Table) 06/07/22 15:10 Blood Culture - Preliminary Blood No Growth after 48 hours 06/07/22 15:25 Blood Culture - Preliminary Blood No Growth after 48 hours Assessment and Plan (1) Enteritis Current Visit: Yes Status: Acute Code(s): K52.9 - NONINFECTIVE GASTROENTERITIS AND COLITIS, UNSPECIFIED SNOMED Code(s): 57925254 (2) Gallbladder hydrops Current Visit: Yes Status: Acute Code(s): K82.1 - HYDROPS OF GALLBLADDER SNOMED Code(s): 94893001 Plan: 1patient presented hospital with acute abdominal pain mostly in the right upper quadrant area and the patient is tender to touch she did have evidence of gallstone and ultrasound shows mild thickening of the gallbladder and CBD was upper limits of normal question of possible acute cholecystitis in this patient also with elevated white count we will need to cover for the enteric gram- negative both aerobes and anaerobes clinically doubt enteritis in this patient denies any history of diarrhea. 2patient HIDA scan reported normal per radiology. 3patient seemed to have subclinical improvement and will continue with Zosyn and monitor clinical course closely Time with Patient: Less than 30
--- NOTE | 2022-06-10 14:14 | P.PN ---
Subjective Progress Note Date: 06/10/22 Principal diagnosis: Abdominal pain, cirrhosis of the liver This is a pleasant 52-year-old female who presented to the emergency department yesterday afternoon with complaints of abdominal pain. She has a past medical history includingalcoholic cirrhosis of the liver with history of esophageal varices, and previous history of gastric sleeve about 20 years ago. Patient states she had abdominal pain for the last 2-3 days. Associated with fever, and some nausea. Pain radiates across her stomach and in the right upper quadrant. She was diagnosed with alcoholic cirrhosis of the liver many years ago her last EGD was done in [address] Sandhu with findings of nonbleeding esophageal varices, Cande-en-Y bypass and also at that time had a colonoscopy showing sigmoid diverticulosis. Patient states she has not followed up with anyone in the last 2 years for her cirrhosis of the liver. On admission she was noted to have elevated WBC, UA showing possible urinary tract infection. Gastroenterology was consulted for cirrhosis of the liver and gallbladder hydrops. She was afebrile on admission, she was started on Zosyn. She continues to have abdominal pain she states radiates across her upper abdomen into the right upper quadrant. No nausea or vomiting at this time. He was having normal bowel movements prior to admission. On a clear liquid diet currently. She underwent a CT of the abdomen and pelvis with contrast reporting findings suspicious for small bowel enteritis, cirrhotic liver disease and gallbladder hydrops with gallstones. No wall thickening or CBD dilation noted. Correlate clinically. Splenomegaly. She also underwent ultrasound of the gallbladder showing abnormal coarse echotexture of liver compatible with cirrhosis, hydrops of gallbladder with multiple gallstones. Gallbladder wall measures at the upper limits of normal of 3 mm additional CBD measures upper limits of normal at 6 mm. 06/09/2022. Patient seen and examined is a follow-up for abdominal pain. She continues to have abdominal pain that's across her abdomen. She's been up and showering this morning. She has on no nausea or vomiting. She's been afebrile. White count improving to 16 today down from 24. She remains on IV Zosyn. Infectious disease is following as well. 06/10/2022. Patient seen and examined today as a follow-up for abdominal pain. She continues to have abdominal pain, mostly in her right side of her abdomen. She denies any nausea or vomiting. She remains on IV antibiotics. She's been afebrile. Patient underwent HIDA scan yesterday that reports normal hepatobiliary scan. Objective - Vital Signs Vital signs: Vital Signs Temp 98.1 F 06/10/22 11:59 Pulse 95 06/10/22 11:59 Resp 16 06/10/22 11:59 BP 111/72 06/10/22 11:59 Pulse Ox 99 06/10/22 11:59 FiO2 Intake & Output 06/09/22 06/10/22 06/10/22 18:59 06:59 18:59 Intake Total 360 Balance 360 Weight 74.843 kg Intake: Oral 360 Other: Voiding Method Toilet # Voids 3 1 - Exam General appearance: The patient is alert, oriented, appears in no acute distress. HET: Head is normocephalic and atraumatic. Conjunctiva pink. Sclera anicteric. Neck: Supple without lymphadenopathy. Abdomen: Soft, diffuse tenderness greatest in the right upper quadrant nondistended with bowel sounds. No guarding or rigidity. Extremities: Normal skin color and turgor. No pedal edema Skin: No rashes, no jaundice Neurological: No focal deficits. Alert and oriented. - Labs CBC & Chem 7: 06/09/22 06:10 06/09/22 06:10 Labs: Microbiology - Last 24 Hours (Table) 06/07/22 15:10 Blood Culture - Preliminary Blood No Growth after 48 hours 06/07/22 15:25 Blood Culture - Preliminary Blood No Growth after 48 hours Assessment and Plan (1) Alcoholic cirrhosis of liver Narrative/Plan: 52-year-old female with a long-standing history of alcoholic cirrhosis of the liver who presented to the emergency department for complaints of abdominal pain mostly in the right upper quadrant and upper mid abdomen. Patient states she felt like she had a fever at home although she did not take her temperature. She was afebrile when she came into the hospital but was found to have an elevated white count of 24. She was started on IV Zosyn. She had a CT of the abdomen and pelvis with contrast as well as the ultrasound of the gallbladder both showing hydrops of the gallbladder with multiple gallstones. CBD within normal limits. Patient has mild elevation of AST and ALT consistent with und erlying liver disease. Patient also has history of esophageal varices for which she is to undergo surveillance EGDs every 2 years. Last EGD was done in [address] Funez at that time she had nonbleeding varices. She also had a screening colonoscopy at that time which revealed sigmoid diverticulosis. Current Visit: Yes Status: Acute Code(s): K70.30 - ALCOHOLIC CIRRHOSIS OF LIVER WITHOUT ASCITES SNOMED Code(s): 562783730 (2) Abdominal pain Narrative/Plan: Gallbladder hydrops with multiple gallstones in acute severe right upper quadrant pain. Gen. surgery following for gallbladder. CT of the abdomen and pelvis showing gallbladder hydrops with gallstones, possible enteritis. No CBD dilation. Ultrasound reports, bladder hydrops and call stones, upper normal limits of CBD however 0.6 cm it is within normal limits for patient's age. Defer cholelithiasis and abdominal pain to general surgery Current Visit: Yes Status: Acute Code(s): R10.9 - UNSPECIFIED ABDOMINAL PAIN SNOMED Code(s): 76981834 (3) Gallbladder hydrops Current Visit: Yes Status: Acute Code(s): K82.1 - HYDROPS OF GALLBLADDER SNOMED Code(s): 15554564 Plan: 1. Continue symptomatic and supportive care 2. Continue with alcohol abstinence 3. Discussed with patient recommended outpatient EGD for esophageal varices surveillance 4. Continue with recommendations from general surgery Thank you for this consultation, we will sign off at this time. Dr. Baron Mazariegos I agree with the dictator's note, documented as a scribe by Allyson Trejo.
--- NOTE | 2022-06-10 14:38 | P.PN ---
Subjective Progress Note Date: 06/10/22 CHIEF COMPLAINT: Abdominal pain HISTORY OF PRESENT ILLNESS: Patient reports some improvement in her abdominal pain. She denies any nausea or vomiting. She is having flatus. Denies any bowel movements or diarrhea. Afebrile. WBC is 16 HUB 12.7 platelets 244 sodium is 135 potassium 4.2 creatinine 0.55 liver enzymes are normal. HIDA scan normal Patient seen and examined with Dr. olea PHYSICAL EXAM: VITAL SIGNS: Reviewed. GENERAL: Well-developed in no acute distress. HEENT: No sclera icterus. Extraocular movements grossly intact. Moist buccal mucosa. Head is atraumatic, normocephalic. ABDOMEN: Soft. Nondistended. Diffuse tenderness. With more tenderness in the right upper quadrant and lower abdomen NEUROLOGIC: Alert and oriented. Cranial nerves II through XII grossly intact. ASSESSMENT: 1. Abdominal pain 2. Chronic cholecystitis 3. Gallbladder ultrasound with hydrops of gallbladder with multiple gallstones. HIDA normal 4. Small bowel enteritis 5. History of liver cirrhosis and alcohol use PLAN: -Advance diet to full liquids and then as tolerated -Continue antibiotics -Continue pain medication -Continue supportive care -No surgical intervention planned at this time Physician [employer] R[employer] note has been reviewed by physician. Signing provider agrees with the documented findings, assessment, and plan of care. Objective - Vital Signs Vital signs: Vital Signs Temp 98.1 F 06/10/22 11:59 Pulse 95 06/10/22 11:59 Resp 16 06/10/22 11:59 BP 111/72 06/10/22 11:59 Pulse Ox 99 06/10/22 11:59 FiO2 Intake & Output 06/09/22 06/10/22 06/10/22 18:59 06:59 18:59 Intake Total 360 Balance 360 Weight 74.843 kg Intake: Oral 360 Other: Voiding Method Toilet # Voids 3 1 - Labs CBC & Chem 7: 06/09/22 06:10 06/09/22 06:10 Labs: Microbiology - Last 24 Hours (Table) 06/07/22 15:10 Blood Culture - Preliminary Blood No Growth after 48 hours 06/07/22 15:25 Blood Culture - Preliminary Blood No Growth after 48 hours
[2022-06-11] MEDS: HYDROmorphone 0.5 MG/0.5 ML SYRINGE IVP PRN ×4 (02:20→20:11)
--- NOTE | 2022-06-11 04:40 | PN ---
PROGRESS NOTE DATE OF SERVICE: 06/10/2022 SUBJECTIVE: This 52-year-old woman, who is admitted with abdominal pain, is being evaluated for cholecystitis, and HIDA scan was normal. Surgery is following the patient closely. No chest pain. No palpitation. OBJECTIVE: VITAL SIGNS: Pulse is 86, blood pressure 119/67, respirations 14. HEENT: Conjunctivae normal. NECK: No JVD. CARDIOVASCULAR: S1, S2. RESPIRATIONS: Breath sounds diminished at the bases. ABDOMEN: Soft. Mild diffuse tenderness. No guarding. No rigidity. No mass palpable. LEGS: No edema. NERVOUS SYSTEM: Nonfocal. LABORATORY DATA: WBC 16. ASSESSMENT: 1. Abdominal pain, clinically acute cholecystitis and cholelithiasis. 2. Cirrhosis of liver with hydrops gallbladder. 3. Procalcitonin 0.66. 4. Possible acute urinary tract infection, present on admission. 5. History of esophageal varices. 6. History of anxiety. 7. Multiple medical issues. RECOMMENDATIONS: I recommend to continue current management and symptomatic treatment. I recommend to continue the antibiotics for the next 24 to 48 hours. Symptomatic treatment. Closely follow with multiple consultants. Cultures are negative so far. Prognosis guarded. Further recommendations to follow. Please note, HIDA scan is normal. MMODL / IJN: [id number] /
[2022-06-11] MEDS: PIPERACILLIN-TAZOBACTAM 3.375 GM in SODIUM CHLORIDE 0.9% 100 ML IVPB SCH ×2 (08:28→17:38)
[2022-06-11] MEDS: PANTOPRAZOLE 40 MG/10 ML VIAL IVP SCH ×2 (08:28→20:11)
[2022-06-11 09:03] LABS: Basophils # (A) 0.04 X 10*3/uL (0.00-0.10); Basophils % (A) 0.6 %; Eosinophils # (A) 0.14 X 10*3/uL (0.04-0.35); Eosinophils % (A) 2.1 %; HCT 33.6 % (37.2-46.3); HGB 10.4 g/dL (12.0-15.0); Immature Grans, Automated 0.9 %; Lymphocytes # (A) 0.97 X 10*3/uL (0.90-5.00); Lymphocytes % (A) 14.2 %; MCH 25.1 pg (27.0-32.0); Mean Platelet Volume 11.1 fL (9.5-12.2); Monocytes # (A) 1.15 X 10*3/uL (0.20-1.00); Monocytes % (A) 16.9 %; NRBC Per 100 WBC 0 /100 WBCS (0.0-0.0); Neutrophils # (A) 4.45 X 10*3/uL (1.80-7.70); Neutrophils % (A) 65.3 %; Platelet Count 259 X 10*3/uL (140-440); RBC 4.15 X 10*6/uL (4.10-5.20); RDW 16.2 % (11.5-14.5); WBC 6.81 X 10*3/uL (4.50-10.00)
[2022-06-11 09:15] LABS: African American GFR (CKD) 127.2 (60.0-200.0); Albumin/Globulin Ratio 0.86 (1.60-3.17); Anion Gap 9.4 mmol/L (10.00-18.00); BUN/Creat Ratio 24.8 Ratio (12.00-20.00); Blood Urea Nitrogen 12.4 mg/dL (9.0-27.0); Calcium 9.3 mg/dL (8.7-10.3); Carbon Dioxide 23.6 mmol/L (20.0-27.5); Globulin 3.5 g/dL (1.6-3.3); Non-African American GFR(CKD) 109.7 (60.0-200.0); Potassium 3.6 mmol/L (3.5-5.5); Total Bilirubin 0.5 mg/dL (0.30-1.20); Total Protein 6.5 g/dL (6.2-8.2)
--- NOTE | 2022-06-11 11:09 | P.PN ---
Subjective Progress Note Date: 06/11/22 Principal diagnosis: Enteritis Patient says she was doing better but this morning she had a large volume of food for breakfast. Since then the patient says her pain is worse. No nausea or vomiting. Objective - Vital Signs Vital signs: Vital Signs Temp 98 F 06/11/22 05:00 Pulse 87 06/11/22 05:00 Resp 16 06/11/22 05:00 BP 95/58 06/11/22 05:00 Pulse Ox 97 06/11/22 05:00 FiO2 Intake & Output 06/10/22 06/11/22 06/11/22 18:59 06:59 18:59 Intake Total 1810 100 Balance 1810 100 Weight 74.843 kg Intake: Intake, IV Titration 200 100 Amount Piperacillin-Tazobactam 3 200 100 .375 gm In Sodium Chloride 0.9% 100 ml @ 25 mls/hr IVPB Q8HR [facility] Rx# :[id number] Oral 1610 Other: # Voids 3 3 - Exam Abdomen: Soft, nontender, nondistended - Labs CBC & Chem 7: 06/11/22 05:57 06/11/22 05:57 Labs: Abnormal Lab Results - Last 24 Hours (Table) 06/11/22 06/11/22 Range/Units 05:57 05:57 Hgb 10.4 L (12.0-15.0) g/dL Hct 33.6 L (37.2-46.3) % MCH 25.1 L (27.0-32.0) pg MCHC 31.0 L (32.0-37.0) g/dL RDW 16.2 H (11.5-14.5) % Immature Gran # 0.06 H (0.00-0.04) X 10*3/uL Monocytes # 1.15 H (0.20-1.00) X 10*3/uL Anion Gap 9.40 L (10.00-18.00) mmol/L Creatinine 0.5 L (0.6-1.5) mg/dL BUN/Creatinine Ratio 24.80 H (12.00-20.00) Ratio Glucose 123 H (70-110) mg/dL C-Reactive Protein 19.00 H (0.00-0.80) mg/dL Albumin 3.0 L (3.8-4.9) g/dL Globulin 3.5 H (1.6-3.3) g/dL Albumin/Globulin Ratio 0.86 L (1.60-3.17) g/dL Microbiology - Last 24 Hours (Table) 06/07/22 15:25 Blood Culture - Preliminary Blood No Growth after 72 hours 06/07/22 15:10 Blood Culture - Preliminary Blood No Growth after 72 hours Assessment and Plan (1) Enteritis Narrative/Plan: Patient with some increased pain today. Discussed lessening the volume of food given her history of gastric bypass in the past. Will follow. Current Visit: Yes Status: Acute Code(s): K52.9 - NONINFECTIVE GASTROENTERITIS AND COLITIS, UNSPECIFIED SNOMED Code(s): 14984878
--- NOTE | 2022-06-11 11:36 | P.PN ---
Subjective Progress Note Date: 06/11/22 Principal diagnosis: Cholecystitis/enteritis Patient is a 52-year-old female presenting to the ER yesterday morning for evaluation of abdominal pain patient pain started the night before presentation to the hospital , patient did have elevated white count CT abdominal pelvis did shows distended small bowel loops concerning for enteritis and gallbladder hydrops suspicious for cholecystitis and diffuse mild thickening. On today's evaluation that is 06/11/2022, the patient continues to be afebrile, the patient is breathing comfortably on room air patient smashed any worsening of her abdominal pain after she eats oatmeal this morning however denies having any nausea or vomiting and no diarrhea no chest pain shortness of breath or cough Objective - Vital Signs Vital signs: Vital Signs Temp 98 F 06/11/22 05:00 Pulse 87 06/11/22 08:40 Resp 16 06/11/22 08:40 BP 95/58 06/11/22 05:00 Pulse Ox 97 06/11/22 05:00 FiO2 Intake & Output 06/10/22 06/11/22 06/11/22 18:59 06:59 18:59 Intake Total 1810 100 Balance 1810 100 Weight 74.843 kg Intake: Intake, IV Titration 200 100 Amount Piperacillin-Tazobactam 3 200 100 .375 gm In Sodium Chloride 0.9% 100 ml @ 25 mls/hr IVPB Q8HR [facility] Rx# :[id number] Oral 1610 Other: Voiding Method Toilet # Voids 3 3 - Exam GENERAL DESCRIPTION: Middle-aged female lying in bed in no distress RESPIRATORY SYSTEM: Unlabored breathing , decreased breath sounds at bases HEART: S1 S2 regular rate and rhythm , ABDOMEN: Soft , mild distention and tenderness EXTREMITIES: No edema feet - Labs CBC & Chem 7: 06/11/22 05:57 06/11/22 05:57 Labs: Abnormal Lab Results - Last 24 Hours (Table) 06/11/22 06/11/22 Range/Units 05:57 05:57 Hgb 10.4 L (12.0-15.0) g/dL Hct 33.6 L (37.2-46.3) % MCH 25.1 L (27.0-32.0) pg MCHC 31.0 L (32.0-37.0) g/dL RDW 16.2 H (11.5-14.5) % Immature Gran # 0.06 H (0.00-0.04) X 10*3/uL Monocytes # 1.15 H (0.20-1.00) X 10*3/uL Anion Gap 9.40 L (10.00-18.00) mmol/L Creatinine 0.5 L (0.6-1.5) mg/dL BUN/Creatinine Ratio 24.80 H (12.00-20.00) Ratio Glucose 123 H (70-110) mg/dL C-Reactive Protein 19.00 H (0.00-0.80) mg/dL Albumin 3.0 L (3.8-4.9) g/dL Globulin 3.5 H (1.6-3.3) g/dL Albumin/Globulin Ratio 0.86 L (1.60-3.17) g/dL Microbiology - Last 24 Hours (Table) 06/07/22 15:25 Blood Culture - Preliminary Blood No Growth after 72 hours 06/07/22 15:10 Blood Culture - Preliminary Blood No Growth after 72 hours Assessment and Plan (1) Enteritis Current Visit: Yes Status: Acute Code(s): K52.9 - NONINFECTIVE GASTROENTERITIS AND COLITIS, UNSPECIFIED SNOMED Code(s): 47165628 (2) Gallbladder hydrops Current Visit: Yes Status: Acute Code(s): K82.1 - HYDROPS OF GALLBLADDER SNOMED Code(s): 13190095 Plan: 1patient presented hospital with acute abdominal pain mostly in the right upper quadrant area and the patient is tender to touch she did have evidence of gallstone and ultrasound shows mild thickening of the gallbladder and CBD was upper limits of normal question of possible acute cholecystitis in this patient also with elevated white count we will need to cover for the enteric gram- negative both aerobes and anaerobes clinically doubt enteritis in this patient denies any history of diarrhea. 2patient HIDA scan reported normal per radiology. 3patient white count has normalized currently on Zosyn transition to short course of oral antibiotic on discharge Time with Patient: Less than 30
--- NOTE | 2022-06-11 12:57 | P.PN ---
Subjective This is a pleasant 52 years old female with past medical history of alcoholic liver cirrhosis and esophageal varices as well as nicotine dependence. Presents with abdominal pain with evidence of hydrops gallbladder and multiple gallstones, patient is been evaluated by surgery and GI team signed off the case and ID team for possible acute cholecystitis various acute small bowel enteritis or gastroenteritis. She has also some evidence of UTI but urine culture was negative and patient denies specific symptoms. Patient was lying in bed today feeling some distress after she tried to eat and that increase her abdominal pain, patient was informed to de-escalate her meal pattern and she agrees. Private Duty Aide troponin elevated at 0.6, leukocytosis improved today down to 6 and hemoglobin 12 9-10, with evidence of hemodilution Patient is covered with Zosyn now blood pressure 114/76 Start normal saline at 75 mL/h Review of systems CONSTITUTIONAL: No fever, no malaise, no fatigue. HEENT: No recent visual problems or hearing problems. Denied any sore throat. CARDIOVASCULAR: No orthopnea, PND, no palpitations, no syncope. PULMONARY: No shortness of breath, no cough, no hemoptysis. GASTROINTESTINAL: No diarrhea, no nausea, no vomiting, no abdominal pain. Normoactive bowel sounds. NEUROLOGICAL: No headaches, no weakness, no numbness. HEMATOLOGICAL: Denies any bleeding or petechiae. Active Medications Generic Name Dose Route Start Last Admin Trade Name Freq PRN Reason Stop Dose Admin Folic Acid 1 mg 06/10/22 12:00 06/10/22 12:10 Folic Acid 1 Mg Tab PO 1 mg DAILY@1200 [facility] Administration Hydromorphone HCl 0.5 mg 06/07/22 15:24 06/11/22 08:29 Hydromorphone 0.5 Mg/0.5 Ml Syringe IVP 0.5 mg Q3HR PRN Administration Moderate Pain (Scale 4 to 6) Hydromorphone HCl 1 mg 06/07/22 15:24 06/09/22 21:26 Hydromorphone 1 Mg/Ml 1 Ml Syringe IVP 1 mg Q3HR PRN Administration Severe Pain (Scale 7 to 10) Piperacillin Sod/Tazobactam 100 mls @ 25 mls/hr 06/07/22 16:00 06/11/22 08:28 Sod 3.375 gm/ Sodium Chloride IVPB 25 mls/hr Q8HR [facility] Administration Protocol Ibuprofen 400 mg 06/07/22 15:24 06/09/22 20:32 Ibuprofen 400 Mg Tab PO 400 mg Q6HR PRN Administration Mild Pain or Fever > 100.5 Multivitamins 1 each 06/10/22 12:00 06/10/22 12:10 Multivitamins, Thera 1 Each Tab PO 1 each DAILY@1200 [facility] Administration Naloxone HCl 0.2 mg 06/07/22 15:24 Naloxone 0.4 Mg/Ml 1 Ml Vial IV Q2M PRN Opioid Reversal Ondansetron HCl 4 mg 06/07/22 15:24 Ondansetron 4 Mg/2 Ml Vial IVP Q8HR PRN Nausea And Vomiting Pantoprazole Sodium 40 mg 06/08/22 11:45 06/11/22 08:28 Pantoprazole 40 Mg/10 Ml Vial IVP 40 mg BID [facility] Administration Thiamine HCl 100 mg 06/10/22 12:00 06/10/22 12:10 Thiamine 100 Mg Tab PO 100 mg DAILY@1200 [facility] Administration Objective - Vital Signs Vital signs: Vital Signs Temp 97.9 F 06/11/22 11:14 Pulse 91 06/11/22 11:14 Resp 16 06/11/22 11:14 BP 114/76 06/11/22 11:14 Pulse Ox 96 06/11/22 11:14 FiO2 Intake & Output 06/10/22 06/11/22 06/11/22 18:59 06:59 18:59 Intake Total 1810 100 Balance 1810 100 Weight 74.843 kg Intake: Intake, IV Titration 200 100 Amount Piperacillin-Tazobactam 3 200 100 .375 gm In Sodium Chloride 0.9% 100 ml @ 25 mls/hr IVPB Q8HR [facility] Rx# :[id number] Oral 1610 Other: Voiding Method Toilet # Voids 3 3 - Exam GENERAL: The patient is alert and oriented x3, not in any acute distress. Well developed, well nourished. HEENT: Pupils are round and equally reacting to light. EOMI. No scleral icterus. No conjunctival pallor. Normocephalic, atraumatic. No pharyngeal erythema. No thyromegaly. CARDIOVASCULAR: S1 and S2 present. No murmurs, rubs, or gallops. PULMONARY: Chest is clear to auscultation, no wheezing or crackles. -ABDOMEN: Soft, RUQ tenderness with no rebound tenderness, nondistended, normoactive bowel sounds. No palpable organomegaly. MUSCULOSKELETAL: No joint swelling or deformity. EXTREMITIES: No cyanosis, clubbing, or pedal edema. NEUROLOGICAL: Gross neurological examination did not reveal any focal deficits. SKIN: No rashes. no petechiae. - Labs CBC & Chem 7: 06/11/22 05:57 06/11/22 05:57 Labs: Abnormal Lab Results - Last 24 Hours (Table) 06/11/22 06/11/22 Range/Units 05:57 05:57 Hgb 10.4 L (12.0-15.0) g/dL Hct 33.6 L (37.2-46.3) % MCH 25.1 L (27.0-32.0) pg MCHC 31.0 L (32.0-37.0) g/dL RDW 16.2 H (11.5-14.5) % Immature Gran # 0.06 H (0.00-0.04) X 10*3/uL Monocytes # 1.15 H (0.20-1.00) X 10*3/uL Anion Gap 9.40 L (10.00-18.00) mmol/L Creatinine 0.5 L (0.6-1.5) mg/dL BUN/Creatinine Ratio 24.80 H (12.00-20.00) Ratio Glucose 123 H (70-110) mg/dL C-Reactive Protein 19.00 H (0.00-0.80) mg/dL Albumin 3.0 L (3.8-4.9) g/dL Globulin 3.5 H (1.6-3.3) g/dL Albumin/Globulin Ratio 0.86 L (1.60-3.17) g/dL Microbiology - Last 24 Hours (Table) 06/07/22 15:25 Blood Culture - Preliminary Blood No Growth after 72 hours 06/07/22 15:10 Blood Culture - Preliminary Blood No Growth after 72 hours Assessment and Plan Assessment: Acute cholecystitis versus acute gastroenteritis Hydrops gallbladder with multiple gallstones Abdominal pain secondary to above Alcoholic liver cirrhosis History of esophageal varices Abnormal urine analysis with negative urine culture Nicotine dependence Plan: IV fluids Continue with antibiotic as per ID team, currently on Zosyn Bowel rest and advance diet as tolerated Pain management surgical team consult Labs and medication were reviewed.. Continue same treatment. Continue with sym ptomatic treatment. Resume home medication. Monitor labs and vitals. DVT and GI prophylaxis. Further recommendations as per clinical course of the patient DVT prophylaxis: Subcutaneous heparin GI Prophylaxis: Ppi PT/OT: Pending Prognosis is guarded
[2022-06-11] MEDS: MULTIVITAMINS, THERA 1 EACH TAB PO SCH (13:21)
[2022-06-11] MEDS: FOLIC ACID 1 MG TAB PO SCH (13:21)
[2022-06-11] MEDS: THIAMINE 100 MG TAB PO SCH (13:21)
[2022-06-11] MEDS: SODIUM CHLORIDE 0.9% 1,000 ML IV SCH (17:38)
[2022-06-11] MEDS: HEPARIN SODIUM,PORCINE/PF 5,000 UNIT/0.5 ML SYRINGE SQ SCH (20:11)
[2022-06-12] MEDS: PIPERACILLIN-TAZOBACTAM 3.375 GM in SODIUM CHLORIDE 0.9% 100 ML IVPB SCH ×4 (00:02→23:38)
[2022-06-12] MEDS: HYDROmorphone 0.5 MG/0.5 ML SYRINGE IVP PRN ×4 (04:23→23:39)
[2022-06-12] MEDS: SODIUM CHLORIDE 0.9% 1,000 ML IV SCH ×2 (06:56→17:29)
[2022-06-12] MEDS: HEPARIN SODIUM,PORCINE/PF 5,000 UNIT/0.5 ML SYRINGE SQ SCH ×2 (09:39→20:45)
[2022-06-12] MEDS: IBUPROFEN 400 MG TAB PO PRN ×3 (09:39→23:38)
[2022-06-12] MEDS: PANTOPRAZOLE 40 MG/10 ML VIAL IVP SCH ×2 (09:42→20:44)
--- NOTE | 2022-06-12 10:49 | P.PN ---
Subjective Progress Note Date: 06/12/22 Principal diagnosis: Enteritis Patient doing better this morning. No nausea or vomiting. Pain seems to be improved. She says she is not ready for discharge. Objective - Vital Signs Vital signs: Vital Signs Temp 97.9 F 06/12/22 04:26 Pulse 88 06/12/22 04:26 Resp 18 06/12/22 04:26 BP 124/84 06/12/22 04:26 Pulse Ox 97 06/12/22 04:26 FiO2 Intake & Output 06/11/22 06/12/22 06/12/22 18:59 06:59 18:59 Intake Total 240 Balance 240 Intake: Oral 240 Other: Voiding Method Toilet Toilet # Voids 3 # Bowel Movements 1 - Exam Abdomen: Soft, nontender, nondistended - Labs CBC & Chem 7: 06/11/22 05:57 06/11/22 05:57 Labs: Microbiology - Last 24 Hours (Table) 06/07/22 15:25 Blood Culture - Preliminary Blood No Growth after 96 hours 06/07/22 15:10 Blood Culture - Preliminary Blood No Growth after 96 hours Assessment and Plan (1) Enteritis Narrative/Plan: Continue diet as ordered. Ambulate. No surgical intervention planned. Current Visit: Yes Status: Acute Code(s): K52.9 - NONINFECTIVE GASTROENTERITIS AND COLITIS, UNSPECIFIED SNOMED Code(s): 99773455
[2022-06-12] MEDS: MULTIVITAMINS, THERA 1 EACH TAB PO SCH (13:20)
[2022-06-12] MEDS: THIAMINE 100 MG TAB PO SCH (13:20)
--- NOTE | 2022-06-12 13:46 | P.PN ---
Subjective This is a pleasant 52 years old female with past medical history of alcoholic liver cirrhosis and esophageal varices as well as nicotine dependence. Presents with abdominal pain with evidence of hydrops gallbladder and multiple gallstones, patient is been evaluated by surgery and GI team signed off the case and ID team for possible acute cholecystitis various acute small bowel enteritis or gastroenteritis. She has also some evidence of UTI but urine culture was negative and patient denies specific symptoms. Patient was lying in bed today feeling some distress after she tried to eat and that increase her abdominal pain, patient was informed to de-escalate her meal pattern and she agrees. Car Framer troponin elevated at 0.6, leukocytosis improved today down to 6 and hemoglobin 12 9-10, with evidence of hemodilution Patient is covered with Zosyn now blood pressure 114/76 Start normal saline at 75 mL/h 06/12/2022 Patient still has some abdominal pain although she reports improvement, she still have tenderness with some guarding, she is not eating well developed. She has regular diet ordered. She had 2 bowel move no labs from today, reviewed. WBCs back to normal yesterday. She is on Zosyn and normal sinus 75 mL/h ments yesterday which states that they are firm and lose. She rates her abdominal pain I5/10 in severity. Objective - Vital Signs Vital signs: Vital Signs Temp 97.9 F 06/12/22 11:18 Pulse 72 06/12/22 11:18 Resp 18 06/12/22 11:18 BP 103/67 06/12/22 11:18 Pulse Ox 98 06/12/22 11:18 FiO2 Intake & Output 06/11/22 06/12/22 06/12/22 18:59 06:59 18:59 Intake Total 240 Balance 240 Intake: Oral 240 Other: Voiding Method Toilet Toilet Toilet # Voids 3 # Bowel Movements 1 - Exam GENERAL: The patient is alert and oriented x3, not in any acute distress. Well developed, well nourished. HEENT: Pupils are round and equally reacting to light. EOMI. No scleral icterus. No conjunctival pallor. Normocephalic, atraumatic. No pharyngeal erythema. No thyromegaly. CARDIOVASCULAR: S1 and S2 present. No murmurs, rubs, or gallops. PULMONARY: Chest is clear to auscultation, no wheezing or crackles. -ABDOMEN: Soft, RUQ tenderness with no rebound tenderness, nondistended, normoactive bowel sounds. No palpable organomegaly. MUSCULOSKELETAL: No joint swelling or deformity. EXTREMITIES: No cyanosis, clubbing, or pedal edema. NEUROLOGICAL: Gross neurological examination did not reveal any focal deficits. SKIN: No rashes. no petechiae. - Labs CBC & Chem 7: 06/11/22 05:57 06/11/22 05:57 Labs: Microbiology - Last 24 Hours (Table) 06/07/22 15:25 Blood Culture - Preliminary Blood No Growth after 96 hours 06/07/22 15:10 Blood Culture - Preliminary Blood No Growth after 96 hours Assessment and Plan Assessment: Acute cholecystitis versus acute gastroenteritis Hydrops gallbladder with multiple gallstones Abdominal pain secondary to above Alcoholic liver cirrhosis History of esophageal varices Abnormal urine analysis with negative urine culture Nicotine dependence Plan: IV fluids Continue with antibiotic as per ID team, currently on Zosyn Bowel rest and advance diet as tolerated Pain management surgical team consult Labs and medication were reviewed.. Continue same treatment. Continue with symptomatic treatment. Resume home medication. Monitor labs and vitals. DVT and GI prophylaxis. Further recommendations as per clinical course of the pat ient DVT prophylaxis: Subcutaneous heparin GI Prophylaxis: Ppi PT/OT: Pending Prognosis is guarded
[2022-06-12] MEDS: FOLIC ACID 1 MG TAB PO SCH (13:57)
--- NOTE | 2022-06-12 15:15 | P.PN ---
Subjective Progress Note Date: 06/12/22 Principal diagnosis: Cholecystitis/enteritis Patient is a 52-year-old female presenting to the ER yesterday morning for evaluation of abdominal pain patient pain started the night before presentation to the hospital , patient did have elevated white count CT abdominal pelvis did shows distended small bowel loops concerning for enteritis and gallbladder hydrops suspicious for cholecystitis and diffuse mild thickening. On today's evaluation that is 06/12/2022, the patient remains to be afebrile, the patient is breathing comfortably on room air patient denies having nausea or vomiting the patient abdominal pain has decreased in intensity patient did not have any bowel movement today did have one yesterday which was formed per patient feeling slightly better Objective - Vital Signs Vital signs: Vital Signs Temp 97.9 F 06/12/22 11:18 Pulse 72 06/12/22 11:18 Resp 18 06/12/22 11:18 BP 103/67 06/12/22 11:18 Pulse Ox 98 06/12/22 11:18 FiO2 Intake & Output 06/11/22 06/12/22 06/12/22 18:59 06:59 18:59 Intake Total 240 Balance 240 Intake: Oral 240 Other: Voiding Method Toilet Toilet Toilet # Voids 3 # Bowel Movements 1 - Exam GENERAL DESCRIPTION: Middle-aged female lying in bed in no distress RESPIRATORY SYSTEM: Unlabored breathing , decreased breath sounds at bases HEART: S1 S2 regular rate and rhythm , ABDOMEN: Soft , mild distention and tenderness EXTREMITIES: No edema feet - Labs CBC & Chem 7: 06/11/22 05:57 06/11/22 05:57 Labs: Microbiology - Last 24 Hours (Table) 06/07/22 15:25 Blood Culture - Preliminary Blood No Growth after 96 hours 06/07/22 15:10 Blood Culture - Preliminary Blood No Growth after 96 hours Assessment and Plan (1) Enteritis Current Visit: Yes Status: Acute Code(s): K52.9 - NONINFECTIVE GASTROENTERITIS AND COLITIS, UNSPECIFIED SNOMED Code(s): 38510642 (2) Gallbladder hydrops Current Visit: Yes Status: Acute Code(s): K82.1 - HYDROPS OF GALLBLADDER SNOMED Code(s): 65694271 Plan: 1patient presented hospital with acute abdominal pain mostly in the right upper quadrant area and the patient is tender to touch she did have evidence of gallstone and ultrasound shows mild thickening of the gallbladder and CBD was upper limits of normal question of possible acute cholecystitis in this patient also with elevated white count we will need to cover for the enteric gram- negative both aerobes and anaerobes clinically doubt enteritis in this patient denies any history of diarrhea. 2patient HIDA scan reported normal per radiology. 3patient seemed to showing some clinical improvement, the patient white count has normalized , patient currently on Zosyn transition to short course of oral Augmentin on discharge Time with Patient: Less than 30
[2022-06-12 20:19] VITALS: RESP 16
[2022-06-13] MEDS: HEPARIN SODIUM,PORCINE/PF 5,000 UNIT/0.5 ML SYRINGE SQ SCH ×2 (08:21→20:31)
[2022-06-13] MEDS: FOLIC ACID 1 MG TAB PO SCH (08:22)
[2022-06-13] MEDS: THIAMINE 100 MG TAB PO SCH (08:22)
[2022-06-13] MEDS: PIPERACILLIN-TAZOBACTAM 3.375 GM in SODIUM CHLORIDE 0.9% 100 ML IVPB SCH ×3 (08:22→23:32)
[2022-06-13] MEDS: PANTOPRAZOLE 40 MG/10 ML VIAL IVP SCH ×2 (08:22→20:31)
[2022-06-13] MEDS: MULTIVITAMINS, THERA 1 EACH TAB PO SCH (08:22)
[2022-06-13] MEDS: SODIUM CHLORIDE 0.9% 1,000 ML IV SCH ×2 (08:23→20:32)
[2022-06-13] MEDS: HYDROmorphone 0.5 MG/0.5 ML SYRINGE IVP PRN ×2 (08:34→16:36)
--- NOTE | 2022-06-13 12:38 | P.PN ---
Subjective Progress Note Date: 06/13/22 CHIEF COMPLAINT: Abdominal pain HISTORY OF PRESENT ILLNESS: Patient lying in bed comfortably. She does report abdominal pain after eating escalante. She did have a normal bowel movement. Denies any vomiting. She describes her pain more mid abdomen today. Afebrile. WBC 6.81 from 06/11/2020 Patient seen and examined with Dr. olea PHYSICAL EXAM: VITAL SIGNS: Reviewed. GENERAL: Well-developed in no acute distress. HEENT: No sclera icterus. Extraocular movements grossly intact. Moist buccal mucosa. Head is atraumatic, normocephalic. ABDOMEN: Soft. Nondistended. Mid abdominal tenderness NEUROLOGIC: Alert and oriented. Cranial nerves II through XII grossly intact. ASSESSMENT: 1. Abdominal pain 2. Enteritis 3. Gallbladder ultrasound with hydrops of gallbladder with multiple gallstones. HIDA normal 4. History of liver cirrhosis and alcohol use PLAN: -No surgical intervention planned -Continue regular diet -Antibiotics per ID service -Continue supportive care -Encourage patient to ambulate Physician Spinning Mule Operator note has been reviewed by physician. Signing provider agrees with the documented findings, assessment, and plan of care. Objective - Vital Signs Vital signs: Vital Signs Temp 98.3 F 06/13/22 11:09 Pulse 84 06/13/22 11:09 Resp 16 06/13/22 11:09 BP 110/73 06/13/22 11:09 Pulse Ox 99 06/13/22 11:09 FiO2 Intake & Output 06/12/22 06/13/22 06/13/22 18:59 06:59 18:59 Intake Total 1060 Balance 1060 Intake: Intake, IV Titration 700 Amount Piperacillin-Tazobactam 3 100 .375 gm In Sodium Chloride 0.9% 100 ml @ 25 mls/hr IVPB Q8HR [facility] Rx# :[id number] Sodium Chloride 0.9% 1, 600 000 ml @ 75 mls/hr IV . [id number] [facility] Rx#:[id number] Oral 360 Other: Voiding Method Toilet Toilet Toilet # Voids 1 - Labs CBC & Chem 7: 06/11/22 05:57 06/11/22 05:57 Labs: Microbiology - Last 24 Hours (Table) 06/07/22 15:10 Blood Culture - Preliminary Blood No Growth after 120 hours 06/07/22 15:25 Blood Culture - Preliminary Blood No Growth after 120 hours
--- NOTE | 2022-06-13 13:47 | P.PN ---
Subjective This is a pleasant 52 years old female with past medical history of alcoholic liver cirrhosis and esophageal varices as well as nicotine dependence. Presents with abdominal pain with evidence of hydrops gallbladder and multiple gallstones, patient is been evaluated by surgery and GI team signed off the case and ID team for possible acute cholecystitis various acute small bowel enteritis or gastroenteritis. She has also some evidence of UTI but urine culture was negative and patient denies specific symptoms. Patient was lying in bed today feeling some distress after she tried to eat and that increase her abdominal pain, patient was informed to de-escalate her meal pattern and she agrees. Acct Exec troponin elevated at 0.6, leukocytosis improved today down to 6 and hemoglobin 12 9-10, with evidence of hemodilution Patient is covered with Zosyn now blood pressure 114/76 Start normal saline at 75 mL/h 06/12/2022 Patient still has some abdominal pain although she reports improvement, she still have tenderness with some guarding, she is not eating well developed. She has regular diet ordered. She had 2 bowel move no labs from today, reviewed. WBCs back to normal yesterday. She is on Zosyn and normal sinus 75 mL/h ments yesterday which states that they are firm and lose. She rates her abdominal pain I5/10 in severity. 06/13/2022 patient improving slowly and gradually for her enteritis and abdominal pain while she is kept on Zosyn per recommendation of surgery team and infectious disease team. She is slowly tolerating her diet however she has some symptoms when she ate her breakfast this morning She has one big large bowel movement yesterday. No further vomiting Leukocytosis improved normal WBC. We will keep monitoring for another 24 to 48-hour with possible discharge if she keeps improving and cleared by other physicians Objective - Vital Signs Vital signs: Vital Signs Temp 98.3 F 06/13/22 11:09 Pulse 84 06/13/22 11:09 Resp 16 06/13/22 11:09 BP 110/73 06/13/22 11:09 Pulse Ox 99 06/13/22 11:09 FiO2 Intake & Output 06/12/22 06/13/22 06/13/22 18:59 06:59 18:59 Intake Total 1060 Balance 1060 Weight 74.843 kg Intake: Intake, IV Titration 700 Amount Piperacillin-Tazobactam 3 100 .375 gm In Sodium Chloride 0.9% 100 ml @ 25 mls/hr IVPB Q8HR [facility] Rx# :[id number] Sodium Chloride 0.9% 1, 600 000 ml @ 75 mls/hr IV . [id number] [facility] Rx#:[id number] Oral 360 Other: Voiding Method Toilet Toilet Toilet # Voids 1 - Exam GENERAL: The patient is alert and oriented x3, not in any acute distress. Well developed, well nourished. HEENT: Pupils are round and equally reacting to light. EOMI. No scleral icterus. No conjunctival pallor. Normocephalic, atraumatic. No pharyngeal erythema. No thyromegaly. CARDIOVASCULAR: S1 and S2 present. No murmurs, rubs, or gallops. PULMONARY: Chest is clear to auscultation, no wheezing or crackles. -ABDOMEN: Soft, RUQ tenderness with no rebound tenderness, nondistended, normoactive bowel sounds. No palpable organomegaly. MUSCULOSKELETAL: No joint swelling or deformity. EXTREMITIES: No cyanosis, clubbing, or pedal edema. NEUROLOGICAL: Gross neurological examination did not reveal any focal deficits. SKIN: No rashes. no petechiae. - Labs CBC & Chem 7: 06/11/22 05:57 06/11/22 05:57 Labs: Microbiology - Last 24 Hours (Table) 06/07/22 15:10 Blood Culture - Preliminary Blood No Growth after 120 hours 06/07/22 15:25 Blood Culture - Preliminary Blood No Growth after 120 hours Assessment and Plan Assessment: Acute cholecystitis versus acute gastroenteritis Hydrops gallbladder with multiple gallstones Abdominal pain secondary to above Alcoholic liver cirrhosis History of esophageal varices Abnormal urine analysis with negative urine culture Nicotine dependence Plan: IV fluids Continue with antibiotic as per ID team, currently on Zosyn Bowel rest and advance diet as tolerated Pain management surgical team consult Labs and medication were reviewed.. Continue same treatment. Continue with symptomatic treatment. Resume home medication. Monitor labs and vitals. DVT and GI prophylaxis. Further recommendations as per clinical course of the patient DVT prophylaxis: Subcutaneous heparin GI Prophylaxis: Ppi PT/OT: Pending Prognosis is guarded
[2022-06-13] MEDS: HYDROmorphone 1 MG/ML 1 ML SYRINGE IVP PRN (20:31)
--- NOTE | 2022-06-13 23:05 | P.PN ---
Subjective Progress Note Date: 06/13/22 Principal diagnosis: Cholecystitis/enteritis Patient is a 52-year-old female presenting to the ER yesterday morning for evaluation of abdominal pain patient pain started the night before presentation to the hospital , patient did have elevated white count CT abdominal pelvis did shows distended small bowel loops concerning for enteritis and gallbladder hydrops suspicious for cholecystitis and diffuse mild thickening. On today's evaluation that is 06/13/2022, the patient continues to be afebrile, the patient is breathing comfortably on room air, patient has been complaining of more abdominal pain today and some nausea but no vomiting patient did have a soft bowel movement for chest pain shortness of breath or cough Objective - Vital Signs Vital signs: Vital Signs Temp 98.3 F 06/13/22 11:09 Pulse 84 06/13/22 11:09 Resp 16 06/13/22 11:09 BP 110/73 06/13/22 11:09 Pulse Ox 99 06/13/22 11:09 FiO2 Intake & Output 06/12/22 06/13/22 06/13/22 18:59 06:59 18:59 Intake Total 1060 Balance 1060 Intake: Intake, IV Titration 700 Amount Piperacillin-Tazobactam 3 100 .375 gm In Sodium Chloride 0.9% 100 ml @ 25 mls/hr IVPB Q8HR [facility] Rx# :[id number] Sodium Chloride 0.9% 1, 600 000 ml @ 75 mls/hr IV . [id number] [facility] Rx#:[id number] Oral 360 Other: Voiding Method Toilet Toilet Toilet # Voids 1 - Exam GENERAL DESCRIPTION: Middle-aged female lying in bed in no distress RESPIRATORY SYSTEM: Unlabored breathing , decreased breath sounds at bases HEART: S1 S2 regular rate and rhythm , ABDOMEN: Soft , mild distention and tenderness EXTREMITIES: No edema feet - Labs CBC & Chem 7: 06/11/22 05:57 06/11/22 05:57 Labs: Microbiology - Last 24 Hours (Table) 06/07/22 15:10 Blood Culture - Preliminary Blood No Growth after 120 hours 06/07/22 15:25 Blood Culture - Preliminary Blood No Growth after 120 hours Assessment and Plan (1) Enteritis Current Visit: Yes Status: Acute Code(s): K52.9 - NONINFECTIVE GASTROENTERITIS AND COLITIS, UNSPECIFIED SNOMED Code(s): 03116552 (2) Gallbladder hydrops Current Visit: Yes Status: Acute Code(s): K82.1 - HYDROPS OF GALLBLADDER SNOMED Code(s): 23742033 Plan: 1patient presented hospital with acute abdominal pain mostly in the right upper quadrant area and the patient is tender to touch she did have evidence of gallstone and ultrasound shows mild thickening of the gallbladder and CBD was upper limits of normal question of possible acute cholecystitis in this patient also with elevated white count we will need to cover for the enteric gram- negative both aerobes and anaerobes clinically doubt enteritis in this patient denies any history of diarrhea. 2patient HIDA scan reported normal per radiology. 3patient white count has normalized and remains to be afebrile, patient to continue Zosyn transition to short course of oral Augmentin on discharge Time with Patient: Less than 30
[2022-06-14] MEDS: HYDROmorphone 1 MG/ML 1 ML SYRINGE IVP PRN (03:14)
[2022-06-14] MEDS: PANTOPRAZOLE 40 MG/10 ML VIAL IVP SCH ×2 (08:47→20:58)
[2022-06-14] MEDS: PIPERACILLIN-TAZOBACTAM 3.375 GM in SODIUM CHLORIDE 0.9% 100 ML IVPB SCH ×3 (08:47→23:44)
[2022-06-14] MEDS: HEPARIN SODIUM,PORCINE/PF 5,000 UNIT/0.5 ML SYRINGE SQ SCH ×2 (08:47→20:57)
[2022-06-14] MEDS: HYDROmorphone 0.5 MG/0.5 ML SYRINGE IVP PRN ×4 (09:11→23:58)
[2022-06-14] MEDS: SODIUM CHLORIDE 0.9% 1,000 ML IV SCH ×2 (09:13→21:11)
[2022-06-14] MEDS: FOLIC ACID 1 MG TAB PO SCH (13:14)
[2022-06-14] MEDS: MULTIVITAMINS, THERA 1 EACH TAB PO SCH (13:14)
[2022-06-14] MEDS: THIAMINE 100 MG TAB PO SCH (13:16)
--- NOTE | 2022-06-14 13:43 | P.PN ---
Subjective This is a pleasant 52 years old female with past medical history of alcoholic liver cirrhosis and esophageal varices as well as nicotine dependence. Presents with abdominal pain with evidence of hydrops gallbladder and multiple gallstones, patient is been evaluated by surgery and GI team signed off the case and ID team for possible acute cholecystitis various acute small bowel enteritis or gastroenteritis. She has also some evidence of UTI but urine culture was negative and patient denies specific symptoms. Patient was lying in bed today feeling some distress after she tried to eat and that increase her abdominal pain, patient was informed to de-escalate her meal pattern and she agrees. Disc Pad Plate Filler troponin elevated at 0.6, leukocytosis improved today down to 6 and hemoglobin 12 9-10, with evidence of hemodilution Patient is covered with Zosyn now blood pressure 114/76 Start normal saline at 75 mL/h 06/12/2022 Patient still has some abdominal pain although she reports improvement, she still have tenderness with some guarding, she is not eating well developed. She has regular diet ordered. She had 2 bowel move no labs from today, reviewed. WBCs back to normal yesterday. She is on Zosyn and normal sinus 75 mL/h ments yesterday which states that they are firm and lose. She rates her abdominal pain I5/10 in severity. 06/13/2022 patient improving slowly and gradually for her enteritis and abdominal pain while she is kept on Zosyn per recommendation of surgery team and infectious disease team. She is slowly tolerating her diet however she has some symptoms when she ate her breakfast this morning She has one big large bowel movement yesterday. No further vomiting Leukocytosis improved normal WBC. We will keep monitoring for another 24 to 48-hour with possible discharge if she keeps improving and cleared by other physicians 06/14/2022 Patient is still complaining from abdominal pain and tenderness while eating She had one bowel movement yesterday She's picking up her diet slowly and gradually Vitals are stable She remains on Zosyn and normal sinus 75 mL/h This was discussed with surgery team, we will keep MONITORING FOR TODAY AND WILL REASSESS TOMORROW Objective - Vital Signs Vital signs: Vital Signs Temp 98.4 F 06/14/22 12:37 Pulse 85 06/14/22 12:37 Resp 16 06/14/22 12:37 BP 139/85 06/14/22 12:37 Pulse Ox 99 12/20/22 12:37 FiO2 Intake & Output 06/13/22 06/14/22 06/14/22 18:59 06:59 18:59 Intake Total 360 800 Balance 360 800 Weight 74.843 kg Intake: Oral 360 800 Other: Voiding Method Toilet Toilet Toilet # Voids 4 2 # Bowel Movements 1 - Exam GENERAL: The patient is alert and oriented x3, not in any acute distress. Well developed, well nourished. HEENT: Pupils are round and equally reacting to light. EOMI. No scleral icterus. No conjunctival pallor. Normocephalic, atraumatic. No pharyngeal erythema. No t hyromegaly. CARDIOVASCULAR: S1 and S2 present. No murmurs, rubs, or gallops. PULMONARY: Chest is clear to auscultation, no wheezing or crackles. -ABDOMEN: Soft, RUQ tenderness with no rebound tenderness, nondistended, normoactive bowel sounds. No palpable organomegaly. MUSCULOSKELETAL: No joint swelling or deformity. EXTREMITIES: No cyanosis, clubbing, or pedal edema. NEUROLOGICAL: Gross neurological examination did not reveal any focal deficits. SKIN: No rashes. no petechiae. - Labs CBC & Chem 7: 06/11/22 05:57 06/11/22 05:57 Labs: Microbiology - Last 24 Hours (Table) 06/07/22 15:25 Blood Culture - Final Blood No Growth after 144 hours 06/07/22 15:10 Blood Culture - Final Blood No Growth after 144 hours Assessment and Plan Assessment: Acute cholecystitis versus acute gastroenteritis Hydrops gallbladder with multiple gallstones Abdominal pain secondary to above Alcoholic liver cirrhosis History of esophageal varices Abnormal urine analysis with negative urine culture Nicotine dependence Plan: IV fluids Continue with antibiotic as per ID team, currently on Zosyn Bowel rest and advance diet as tolerated Pain management surgical team consult Labs and medication were reviewed.. Continue same treatment. Continue with symptomatic treatment. Resume home medication. Monitor labs and vitals. DVT and GI prophylaxis. Further recommendations as per clinical course of the patient DVT prophylaxis: Subcutaneous heparin GI Prophylaxis: Ppi PT/OT: Pending Prognosis is guarded
--- NOTE | 2022-06-14 14:03 | P.PN ---
Subjective Progress Note Date: 06/14/22 CHIEF COMPLAINT: Abdominal pain HISTORY OF PRESENT ILLNESS: Patient lying in bed comfortably. S patient is complaining of lower abdominal pain. She said her pain was worse yesterday after eating [employer] and later in the day [place] her. She was able to tolerate her dinner. She is having regular bowel movements. Denies any nausea or vomiting. She has been up and ambulating. Afebrile. WBC 6.81 from 06/11/2020 Patient seen and examined with Dr. olea PHYSICAL EXAM: VITAL SIGNS: Reviewed. GENERAL: Well-developed in no acute distress. HEENT: No sclera icterus. Extraocular movements grossly intact. Moist buccal mucosa. Head is atraumatic, normocephalic. ABDOMEN: Soft. Nondistended. Tenderness lower abdomen with palpation NEUROLOGIC: Alert and oriented. Cranial nerves II through XII grossly intact. ASSESSMENT: 1. Abdominal pain 2. Enteritis 3. Gallbladder ultrasound with hydrops of gallbladder with multiple gallstones. HIDA normal 4. History of liver cirrhosis and alcohol use PLAN: -No surgical intervention planned -Continue regular diet -Antibiotics per ID service -Continue supportive care -Encourage patient to ambulate Physician Patient Safety Manager note has been reviewed by physician. Signing provider agrees with the documented findings, assessment, and plan of care. Objective - Vital Signs Vital signs: Vital Signs Temp 98.4 F 06/14/22 12:37 Pulse 85 06/14/22 12:37 Resp 16 06/14/22 12:37 BP 139/85 06/14/22 12:37 Pulse Ox 99 06/14/22 12:37 FiO2 Intake & Output 06/13/22 06/14/22 06/14/22 18:59 06:59 18:59 Intake Total 360 800 Balance 360 800 Weight 74.843 kg Intake: Oral 360 800 Other: Voiding Method Toilet Toilet Toilet # Voids 4 2 # Bowel Movements 1 - Labs CBC & Chem 7: 06/11/22 05:57 06/11/22 05:57 Labs: Microbiology - Last 24 Hours (Table) 06/07/22 15:25 Blood Culture - Final Blood No Growth after 144 hours 06/07/22 15:10 Blood Culture - Final Blood No Growth after 144 hours
--- NOTE | 2022-06-14 17:34 | P.PN ---
Subjective Progress Note Date: 06/14/22 Principal diagnosis: Cholecystitis/enteritis Patient is a 52-year-old female presenting to the ER yesterday morning for evaluation of abdominal pain patient pain started the night before presentation to the hospital , patient did have elevated white count CT abdominal pelvis did shows distended small bowel loops concerning for enteritis and gallbladder hydrops suspicious for cholecystitis and diffuse mild thickening. On today's evaluation that is 06/14/2022, the patient remains to be afebrile, the patient is breathing comfortably on room air, patient denies having any further nausea or vomiting abdominal pain has decreased in intensity and did have a soft bowel movement no blood or mucus in the stool Objective - Vital Signs Vital signs: Vital Signs Temp 97.8 F 06/14/22 04:43 Pulse 86 06/14/22 08:40 Resp 16 06/14/22 08:40 BP 118/79 06/14/22 04:43 Pulse Ox 99 06/14/22 04:43 FiO2 Intake & Output 06/13/22 06/14/22 06/14/22 18:59 06:59 18:59 Intake Total 360 800 Balance 360 800 Weight 74.843 kg Intake: Oral 360 800 Other: Voiding Method Toilet Toilet Toilet # Voids 4 2 # Bowel Movements 1 - Exam GENERAL DESCRIPTION: Middle-aged female lying in bed in no distress RESPIRATORY SYSTEM: Unlabored breathing , decreased breath sounds at bases HEART: S1 S2 regular rate and rhythm , ABDOMEN: Soft , mild distention and tenderness EXTREMITIES: No edema feet - Labs CBC & Chem 7: 06/11/22 05:57 06/11/22 05:57 Labs: Microbiology - Last 24 Hours (Table) 06/07/22 15:25 Blood Culture - Final Blood No Growth after 144 hours 06/07/22 15:10 Blood Culture - Final Blood No Growth after 144 hours Assessment and Plan (1) Enteritis Current Visit: Yes Status: Acute Code(s): K52.9 - NONINFECTIVE GASTROENTERITIS AND COLITIS, UNSPECIFIED SNOMED Code(s): 71790526 (2) Gallbladder hydrops Current Visit: Yes Status: Acute Code(s): K82.1 - HYDROPS OF GALLBLADDER SNOMED Code(s): 37728157 Plan: 1patient presented hospital with acute abdominal pain mostly in the right upper quadrant area and the patient is tender to touch she did have evidence of gallstone and ultrasound shows mild thickening of the gallbladder and CBD was upper limits of normal question of possible acute cholecystitis in this patient also with elevated white count we will need to cover for the enteric gram- negative both aerobes and anaerobes clinically doubt enteritis in this patient denies any history of diarrhea. 2patient HIDA scan reported normal per radiology. 3patient white count has normalized and remains to be afebrile, 4- patient seemed to have shown clinical improvement and will continue Zosyn transition to short course of oral Augmentin on discharge and close outpatient follow-up Time with Patient: Less than 30
[2022-06-15] MEDS: PIPERACILLIN-TAZOBACTAM 3.375 GM in SODIUM CHLORIDE 0.9% 100 ML IVPB SCH ×2 (07:47→16:56)
[2022-06-15] MEDS: PANTOPRAZOLE 40 MG/10 ML VIAL IVP SCH (07:48)
[2022-06-15] MEDS: HEPARIN SODIUM,PORCINE/PF 5,000 UNIT/0.5 ML SYRINGE SQ SCH (07:49)
[2022-06-15] MEDS: HYDROmorphone 0.5 MG/0.5 ML SYRINGE IVP PRN (07:58)
--- NOTE | 2022-06-15 10:58 | P.PN ---
Subjective Progress Note Date: 06/15/22 CHIEF COMPLAINT: Abdominal pain HISTORY OF PRESENT ILLNESS: Patient reports that she is feeling better today. Her pain has decreased. She did require dose of IV pain medicine this morning. She's having regular bowel movements and flatus. Denies any nausea or vomiting. Tolerating diet. She describes her abdominal pain in the lower abdomen more crampy and spasming. Afebrile. Patient seen and examined with Dr. olea PHYSICAL EXAM: VITAL SIGNS: Reviewed. GENERAL: Well-developed in no acute distress. HEENT: No sclera icterus. Extraocular movements grossly intact. Moist buccal mucosa. Head is atraumatic, normocephalic. ABDOMEN: Soft. Nondistended. Tenderness lower abdomen with palpation NEUROLOGIC: Alert and oriented. Cranial nerves II through XII grossly intact. ASSESSMENT: 1. Abdominal pain 2. Enteritis 3. Gallbladder ultrasound with hydrops of gallbladder with multiple gallstones. HIDA normal 4. History of liver cirrhosis and alcohol use PLAN: -No surgical intervention planned -Continue regular diet -Antibiotics per ID service -Continue supportive care -Encourage patient to ambulate -Patient may benefit from Bentyl for the abdominal cramping and spasms Physician Pension Agent note has been reviewed by physician. Signing provider agrees with the documented findings, assessment, and plan of care. Objective - Vital Signs Vital signs: Vital Signs Temp 98.4 F 06/15/22 04:42 Pulse 80 06/15/22 04:42 Resp 16 06/15/22 04:42 BP 108/72 06/15/22 04:42 Pulse Ox 100 06/15/22 04:42 FiO2 Intake & Output 06/14/22 06/15/22 06/15/22 18:59 06:59 18:59 Intake Total 240 850 Balance 240 850 Intake: Intake, IV Titration 850 Amount Piperacillin-Tazobactam 3 100 .375 gm In Sodium Chloride 0.9% 100 ml @ 25 mls/hr IVPB Q8HR [facility] Rx# :[id number] Sodium Chloride 0.9% 1, 750 000 ml @ 75 mls/hr IV . [id number] [facility] Rx#:[id number] Oral 240 Other: Voiding Method Toilet Toilet Toilet # Voids 4 - Labs CBC & Chem 7: 06/11/22 05:57 06/11/22 05:57
[2022-06-15] MEDS: MULTIVITAMINS, THERA 1 EACH TAB PO SCH (12:13)
[2022-06-15] MEDS: THIAMINE 100 MG TAB PO SCH (12:13)
[2022-06-15] MEDS: FOLIC ACID 1 MG TAB PO SCH (12:13)
[2022-06-15] MEDS ORDERED: HYDROcodone/APAP 5-325MG 1 EACH TAB PO PRN (12:25)
[2022-06-15 12:45] VITALS: BP 114/76; PULSE 82; TEMP 97.5
[2022-06-15] MEDS ORDERED: DICYCLOMINE 10 MG CAP PO PRN (13:00)
--- NOTE | 2022-06-15 23:46 | P.DS ---
Providers Date of admission: 06/07/22 14:10 Attending physician: Lucy Alcaraz Consults: 06/07/22 15:24 Consult Physician Urgent Consulting Provider: Blaise Garcia Consult Reason/Comments: small bowel enteritis, gallbladder hydrops Do you want consulting provider notified?: Yes Consult Physician Urgent Consulting Provider: Lindsey Mazariegos Consult Reason/Comments: Cirrhosis with gallbladder hydrops, small bowel enteritis Do you want consulting provider notified?: Yes 06/08/22 11:32 Consult Physician Routine Consulting Provider: Eder Cunningham Consult Reason/Comments: sepsis? Do you want consulting provider notified?: Yes Primary care physician: Fermin Ruby Hospital Course: Diagnoses: Acute cholecystitis versus acute gastroenteritis Hydrops gallbladder with multiple gallstones Abdominal pain secondary to above Alcoholic liver cirrhosis History of esophageal varices Abnormal urine analysis with negative urine culture Nicotine dependence Hospital course: This is a pleasant 52 years old female with past medical history of alcoholic liver cirrhosis and esophageal varices as well as nicotine dependence. Presents with abdominal pain with evidence of hydrops gallbladder and multiple g allstones, patient is been evaluated by surgery and GI team signed off the case and ID team for possible acute cholecystitis various acute small bowel enteritis or gastroenteritis. She has also some evidence of UTI but urine culture was negative and patient denies specific symptoms. Patient was treated with Zosyn and normal saline as well as symptomatic treatment. Patient showed interval improvement and patient couldn't tolerate diet, patient finished 100% of her dinner last night and 100% of her breakfast this morning, no vomiting no nausea and she has regular bowel movement but she still have abdominal pain especially with eating but still improved significantly compared to the last few days. She denies any other symptoms no urinary or chest pain symptoms no fever. Patient was cleared for discharge by surgery team when I discussed the case with them Also patient today for discharge by ID team and she will be discharged on Augmentin per the recommendation Problems and management plan were discussed with the patient and he verbalized understanding and acceptance Patient was found stable and can be discharged home in guarded prognosis however he needs follow-up as an outpatient. Patient was instructed to follow up with PCP Dr. Snyder within one week and patient agrees Patient was instructed to follow up with surgeon Dr. Shetty in 1-2 weeks with infectious disease doctor lorena in one week and GI team Dr. Mazariegos for surveillance for esophageal varices in 2-3 weeks and she agrees to call and make her own appointment Physical exam Gen: patient is a AAOx3, no distress CVS: S1-S2, RRR, no murmur Lungs: B/L CTA, no wheezing -Abdomen: soft, no distention, mild right side abdomen tenderness, positive bowel sounds Extremity: no leg edema or induration Time spent more than 35 minute Plan - Discharge Summary Discharge Rx Participant: Yes New Discharge Prescriptions: New Amoxic-Pot Clav 875-125Mg [Augmentin 875-125] 1 tab PO BID 7 Days #14 tab HYDROcodone/APAP 5-325MG [[place] 5-325] 1 each PO Q6HR PRN 5 Days #20 tab PRN Reason: Moderate Pain (4-6) Thiamine [Vitamin B-1] 100 mg PO DAILY@1200 #30 tab Dicyclomine [Bentyl] 10 mg PO TID PRN #20 cap PRN Reason: Dyspepsia Folic Acid 1 mg PO DAILY@1200 #30 tab Multivitamins, Thera [Multivitamin (formulary)] 1 each PO DAILY@1200 #30 tab Pantoprazole Sodium [Protonix] 40 mg PO BID 30 Days #60 tab Ondansetron [Zofran] 4 mg PO Q6HR PRN #20 tab PRN Reason: Nausea And Vomiting Discharge Medication List Amoxic-Pot Clav 875-125Mg [Augmentin 875-125] 1 tab PO BID 7 Days #14 tab 06/15/22 [Rx] Dicyclomine [Bentyl] 10 mg PO TID PRN #20 cap 06/15/22 [Rx] Folic Acid 1 mg PO DAILY@1200 #30 tab 06/15/22 [Rx] HYDROcodone/APAP 5-325MG [[place] 5-325] 1 each PO Q6HR PRN 5 Days #20 tab 06/15/22 [Rx] Multivitamins, Thera [Multivitamin (formulary)] 1 each PO DAILY@1200 #30 tab 06/15/22 [Rx] Ondansetron [Zofran] 4 mg PO Q6HR PRN #20 tab 06/15/22 [Rx] Pantoprazole Sodium [Protonix] 40 mg PO BID 30 Days #60 tab 06/15/22 [Rx] Thiamine [Vitamin B-1] 100 mg PO DAILY@1200 #30 tab 06/15/22 [Rx] Follow up Appointment(s)/Referral(s): Tung Christensen MD [Primary Care Provider] - 06/22/22 10:00 am Lindsey Mazariegos MD [STAFF PHYSICIAN] - 07/19/22 3:45 pm (We recommend follow-up for esophageal varices surveillance,the office will call you if they can get you in sooner.) Eder Cunningham MD [STAFF PHYSICIAN] - 07/04/22 2:30 pm Blaise Garcia MD [STAFF PHYSICIAN] - 06/21/22 12:15 pm Patient Instructions/Handouts: Dicyclomine (By mouth), Hydrocodone/Acetaminophen (By mouth), Thiamine (By mouth), Amoxicillin/Clavulanate Potassium (By mouth), Folic Acid (By mouth), Mu ltivitamins, Adult Formula (By mouth), Ondansetron (By mouth), Pantoprazole (By mouth), How to Stop Smoking (DC), Cholecystitis (GEN), Gallstones (DC), Heart Healthy Diet (DC) Activity/Diet/Wound Care/Special Instructions: per your request: [facility] is the resource for eye glasses Heart healthy diet activity is restricted till you see your doctor Discharge Disposition: HOME SELF-CARE
--- NOTE | 2022-06-17 22:48 | CDI ---
Documentation Clarification Form Date: 06/17/2022 10:32:51 PM From: Shakila Rae Phone: Admit Date: 06/07/2022 02:10:00 PM Patient Name: Jovana Zapata Visit Number: [id number] Discharge Date: 06/15/2022 06:16:00 PM ATTENTION: The Clinical Documentation Specialists (CDI) and [facility] Coding Staff appreciate your assistance in clarifying documentation. Please respond to the clarification below the line at the bottom and electronically sign. The CDI & [facility] Coding staff will review the response and follow-up if needed. Please note: Queries are made part of the Legal Health Record. If you have any questions, please contact the author of this message via ITS. Dr. Joel Majano Sepsis is documented per ED Note. For each diagnosis, documentation must be clear to determine if the condition was present at the time of the patients inpatient admission or developed during the hospital stay. Additional clarification regarding the Sepsis is requested. History/Risk Factors: 52yo F, Acute cholecystitis w Hydrops & gallstones, Alcoholic liver cirrhosis, Hx of esophageal varices, UTI, smoker Clinical Indicators: WBC: 24.5 Lactic acid: 1.6 Blood cultures: Blood No Growth after 24 hours Vitals signs: 06/08/22 05:28 98.4 F 99 18 115/77 97 Treatment: Patient will be admitted to medicine for several infections and septic state. General surgery and gastroenterology consults placed. Patient started on IV Zosyn with blood cultures obtained prior. Patient started on IV Zosyn with blood cultures obtained prior. Please clarify if the Sepsis was POA [ ] Yes, Sepsis POA [ ] Sepsis ruled out [ ] Other, please specify [ ] Unable to determine SIRS Criteria: 2 or more of the following may indicate SIRS -Temperature < 96.8F (36C) or > 101.0F (38.3C) -Heart Rate > 90 bpm -Respiratory Rate > 20 breaths/min or PaCO2 < 32 mmHg -White Blood Cell Count > 12,000 or < 4,000 cells/mm3 or > 10% bands (Template Last Reviewed: July 2020) Yes, Sepsis POA, improved upon discharge MTDD
--- NOTE | 2022-06-17 22:50 | P.PN ---
Subjective Progress Note Date: 06/15/22 Principal diagnosis: Cholecystitis/enteritis Patient is a 52-year-old female presenting to the ER yesterday morning for evaluation of abdominal pain patient pain started the night before presentation to the hospital , patient did have elevated white count CT abdominal pelvis did shows distended small bowel loops concerning for enteritis and gallbladder hydrops suspicious for cholecystitis and diffuse mild thickening. On today's evaluation that is 06/15/2022, the patient continues to be afebrile, the patient is breathing comfortably on room air, patient denies having any further nausea or vomiting abdominal pain has improved and the patient has been tolerating her diet denies diarrhea Objective - Vital Signs Vital signs: Vital Signs Temp 97.5 F L 06/15/22 12:44 Pulse 82 06/15/22 12:44 Resp 16 06/15/22 12:44 BP 114/76 06/15/22 12:44 Pulse Ox 100 06/15/22 12:44 FiO2 Intake & Output 06/14/22 06/15/22 06/15/22 18:59 06:59 18:59 Intake Total 240 850 Balance 240 850 Intake: Intake, IV Titration 850 Amount Piperacillin-Tazobactam 3 100 .375 gm In Sodium Chloride 0.9% 100 ml @ 25 mls/hr IVPB Q8HR [facility] Rx# :[id number] Sodium Chloride 0.9% 1, 750 000 ml @ 75 mls/hr IV . [id number] [facility] Rx#:[id number] Oral 240 Other: Voiding Method Toilet Toilet Toilet # Voids 4 - Exam GENERAL DESCRIPTION: Middle-aged female lying in bed in no distress RESPIRATORY SYSTEM: Unlabored breathing , decreased breath sounds at bases HEART: S1 S2 regular rate and rhythm , ABDOMEN: Soft , mild distention and tenderness EXTREMITIES: No edema feet - Labs CBC & Chem 7: 06/11/22 05:57 06/11/22 05:57 Assessment and Plan (1) Enteritis Status: Acute Code(s): K52.9 - NONINFECTIVE GASTROENTERITIS AND COLITIS, UNSPECIFIED SNOMED Code(s): 23214007 (2) Gallbladder hydrops Status: Acute Code(s): K82.1 - HYDROPS OF GALLBLADDER SNOMED Code(s): 81436865 Plan: 1patient presented hospital with acute abdominal pain mostly in the right upper quadrant area and the patient is tender to touch she did have evidence of gallstone and ultrasound shows mild thickening of the gallbladder and CBD was upper limits of normal question of possible acute cholecystitis in this patient also with elevated white count we will need to cover for the enteric gram- negative both aerobes and anaerobes clinically doubt enteritis in this patient denies any history of diarrhea. 2patient HIDA scan reported normal per radiology. 3patient white count has normalized and remains to be afebrile, 4- patient has shown clinical improvement and will transition to short course of oral Augmentin on discharge and close outpatient follow-up, discussed with the admitting team working on discharge Time with Patient: Less than 30
== END 2022-06-15 18:16 | disposition home or self-care (01) | DRG 872 ==
LOC: EC 11:24 → 5NMEDONC 14:10
PROVIDERS: ADMIT Hospitalist; ATTEND Hospitalist
DX: A41.9 Sepsis, unspecified organism (principal); K80.12 Calculus of gallbladder with acute and chronic cholecystitis without obstruction; K82.1 Hydrops of gallbladder; I85.10 Secondary esophageal varices without bleeding; N39.0 Urinary tract infection, site not specified; F10.11 Alcohol abuse, in remission; K70.30 Alcoholic cirrhosis of liver without ascites; F17.210 Nicotine dependence, cigarettes, uncomplicated; K52.9 Noninfective gastroenteritis and colitis, unspecified; F41.9 Anxiety disorder, unspecified; R16.1 Splenomegaly, not elsewhere classified; R77.8 Other specified abnormalities of plasma proteins; Z98.84 Bariatric surgery status; Z87.19 Personal history of other diseases of the digestive system; Z28.310 Unvaccinated for COVID-19; Z79.899 Other long term (current) drug therapy
CPT/HCPCS: 36415; 74177; 76705; 78227; 80053; 81001; 82140; 82150; 83605; 83690; 84145; 84484; 85025; 85610; 85730; 86140; 87040; 87086; 96361; 96374; 96375; 96376; 99285

== ENCOUNTER 2022-07-04 05:03 | Inpatient (IN) | payer MEDICARE ==
[2022-07-04] MEDS ORDERED: SODIUM CHLORIDE 0.9% 1,000 ML IV ONE (05:36)
[2022-07-04] MEDS ORDERED: MORPHINE SULFATE 4 MG/ML SYRINGE IVP STA (05:36)
[2022-07-04 06:05] LABS: Basophils % (A) 1 %; Eosinophils # (A) 0.2 k/uL (0-0.7); Eosinophils % (A) 3 %; HCT 34.7 % (34.0-46.0); HGB 11.3 gm/dL (11.4-16.0); Hypochromasia Moderate; Lymphocytes # (A) 1.2 k/uL (1.0-4.8); Lymphocytes % (A) 17 %; MCH 25.7 pg (25.0-35.0); MCHC 32.4 g/dL (31.0-37.0); MCV 79.4 fL (80.0-100.0); Mean Platelet Volume 8.7; Monocytes # (A) 0.5 k/uL (0-1.0); Monocytes % (A) 7 %; Neutrophils # (A) 4.7 k/uL (1.3-7.7); Neutrophils % (A) 70 %; Platelet Count 214 k/uL (150-450); RBC 4.38 m/uL (3.80-5.40); RDW 15.5 % (11.5-15.5); WBC 6.7 k/uL (3.8-10.6)
[2022-07-04 06:19] LABS: ALT 21 U/L (4-34); AST 29 U/L (14-36); African American GFR (CKD) >90 (>60 ml/min/1.73 sqM); Alkaline Phosphatase 99 U/L (38-126); Anion Gap 6 mmol/L; Blood Urea Nitrogen 13 mg/dL (7-17); Calcium 9.3 mg/dL (8.4-10.2); Carbon Dioxide 27 mmol/L (22-30); Chloride 107 mmol/L (98-107); Glucose 97 mg/dL (74-99); Lipase 39 U/L (23-300); Non-African American GFR(CKD) >90 (>60 ml/min/1.73 sqM); Potassium 4.6 mmol/L (3.5-5.1); Sodium 140 mmol/L (137-145); Total Bilirubin 0.3 mg/dL (0.2-1.3); Total Protein 8.1 g/dL (6.3-8.2)
--- NOTE | 2022-07-04 06:37 | ED ---
General Adult HPI - General Source: patient Mode of arrival: wheelchair Limitations: no limitations <Jorge Luis Don - Last Filed: 07/04/22 06:33> <Vaguhn Pollock - Last Filed: 07/04/22 08:03> - General Chief complaint: Abdominal Pain Stated complaint: gallbladder Time Seen by Provider: 07/04/22 05:29 - History of Present Illness Initial comments: This is a 52-year-old female who presents emergency department for right-sided abdominal pain. The patient stated this pain is being present since Monday and has been worsening. The patient was recently admitted to an outside facility for similar right upper quadrant pain and was supposed to follow-up with her surgeon for gallbladder removal however stated she was able to do so because of his scheduling issue. The patient stated that she had continued right upper and right lower quadrant pain. The patient stated that she had associated nausea and vomiting. The patient stated that the pain was so severe she came into the emergency department because she cannot take it. The patient denied any fevers and chills as well as any nausea and vomiting currently. (Jorge Luis Don) - Related Data Home Medications Medication Instructions Recorded Confirmed Multivitamins, Thera [Multivitamin 1 tab PO DAILY@1200 07/04/22 07/04/22 (formulary)] Previous Rx's Medication Instructions Recorded Dicyclomine [Bentyl] 10 mg PO TID PRN #20 cap 06/15/22 Folic Acid 1 mg PO DAILY@1200 #30 tab 06/15/22 Ondansetron [Zofran] 4 mg PO Q6HR PRN #20 tab 06/15/22 Pantoprazole Sodium [Protonix] 40 mg PO BID 30 Days #60 tab 06/15/22 Thiamine [Vitamin B-1] 100 mg PO DAILY@1200 #30 tab 06/15/22 Allergies Allergy/AdvReac Type Severity Reaction Status Date / Time No Known Allergies Allergy Verified 07/04/22 07:08 Review of Systems ROS Other: All systems not noted in ROS Statement are negative. <Jorge Luis Dno - Last Filed: 07/04/22 06:33> ROS Other: All systems not noted in ROS Statement are negative. <Vaughn Pollock - Last Filed: 07/04/22 08:03> ROS Statement: Those systems with pertinent positive or pertinent negative responses have been documented in the HPI. Past Medical History Past Medical History: Liver Disease Additional Past Medical History / Comment(s): CIRRHOSIS. ESOPHAGEAL VARICIES History of Any Multi-Drug Resistant Organisms: None Reported Past Surgical History: Bariatric Surgery, Tubal Ligation Additional Past Surgical History / Comment(s): tummy tuck, gastric bypass, EGD, COLONOSCOPY Past Anesthesia/Blood Transfusion Reactions: No Reported Reaction Past Psychological History: Anxiety Smoking Status: Current every day smoker Past Alcohol Use History: None Reported Past Drug Use History: Marijuana - Past Family History Father Family Medical History: Deep Vein Thrombosis (DVT) <Jorge Luis Don - Last Filed: 07/04/22 06:33> General Exam Limitations: no limitations General appearance: alert, in distress (In distress secondary to abdominal pain) Head exam: Present: atraumatic, normocephalic, normal inspection Eye exam: Present: normal appearance, PERRL Pupils: Present: normal accommodation ENT exam: Present: normal exam, normal oropharynx, mucous membranes moist Neck exam: Present: normal inspection, full ROM Respiratory exam: Present: normal lung sounds bilaterally Cardiovascular Exam: Present: regular rate, normal rhythm, normal heart sounds GI/Abdominal exam: Present: tenderness (Tenderness noted to the right upper and right lower quadrant), guarding Extremities exam: Present: normal inspection, full ROM, normal capillary refill Back exam: Present: normal inspection, full ROM Neurological exam: Present: alert, oriented X3, CN II-XII intact Psychiatric exam: Present: normal affect, normal mood Skin exam: Present: warm, dry <Jorge Luis Don - Last Filed: 07/04/22 06:33> Course <Jorge Luis Don - Last Filed: 07/04/22 06:33> Vital Signs 07/04/22 07/04/22 05:15 05:25 Pulse Rate 107 H 97 Respiratory 18 16 Rate Blood Pressure 112/77 111/82 O2 Sat by Pulse 98 99 Oximetry - Reevaluation(s) Reevaluation #1: The patient was signed out to Dr. Pollock. The patient was signed out pending completion of the computed tomography scan as well as the right upper quadrant abdominal ultrasound. The patient remained stable and was sent out in stable condition. 07/04/22 06:36 (Jorge Luis Don) Medical Decision Making - Lab Data Result diagrams: 07/04/22 05:50 07/04/22 05:50 <Jorge Luis Don - Last Filed: 07/04/22 06:33> - Lab Data Result diagrams: 07/04/22 05:50 07/04/22 05:50 <Vaughn Pollock - Last Filed: 07/04/22 08:03> - Medical Decision Making Patient care is signed out to me by previous shift physician, Dr. Don. Briefly, patient is a 52-year-old female presents emergency department for abdominal pain. Patient allegedly has history of cirrhosis. Labs and imaging were independently reviewed. Labs are unremarkable. Plan at sign out was follow-up with pending abdominal ultrasound. CT shows partial small bowel obstruction related to internal hernia. Ultrasound of the abdomen shows gallstones in the gallbladder without any evidence for acute cholecystitis. Patient evaluated at bedside at 755 and found to be in stable medical condition. She has however have persistent abdominal pain. Patient's clinical presentation consistent with partial small bowel obstruction secondary to internal hernia. Patient be admitted to medical service with consultation to general surgery. (Vaughn Pollock) - Lab Data Lab Results 07/04/22 07/04/22 07/04/22 Range/Units 05:50 05:50 05:50 WBC 6.7 (3.8-10.6) k/uL RBC 4.38 (3.80-5.40) m/uL Hgb 11.3 L (11.4-16.0) gm/dL Hct 34.7 (34.0-46.0) % MCV 79.4 L (80.0-100.0) fL MCH 25.7 (25.0-35.0) pg MCHC 32.4 (31.0-37.0) g/dL RDW 15.5 (11.5-15.5) % Plt Count 214 (150-450) k/uL MPV 8.7 Neutrophils % 70 % Lymphocytes % 17 % Monocytes % 7 % Eosinophils % 3 % Basophils % 1 % Neutrophils # 4.7 (1.3-7.7) k/uL Lymphocytes # 1.2 (1.0-4.8) k/uL Monocytes # 0.5 (0-1.0) k/uL Eosinophils # 0.2 (0-0.7) k/uL Basophils # 0.0 (0-0.2) k/uL Hypochromasia Moderate Sodium 140 (137-145) mmol/L Potassium 4.6 (3.5-5.1) mmol/L Chloride 107 (98-107) mmol/L Carbon Dioxide 27 (22-30) mmol/L Anion Gap 6 mmol/L BUN 13 (7-17) mg/dL Creatinine 0.50 L (0.52-1.04) mg/dL Est GFR (CKD-EPI)AfAm >90 (>60 ml/min/1.73 sqM) Est GFR (CKD-EPI)NonAf >90 (>60 ml/min/1.73 sqM) Glucose 97 (74-99) mg/dL Calcium 9.3 (8.4-10.2) mg/dL Total Bilirubin 0.3 (0.2-1.3) mg/dL AST 29 (14-36) U/L ALT 21 (4-34) U/L Alkaline Phosphatase 99 (38-126) U/L Troponin I <0.012 (0.000-0.034) ng/mL Total Protein 8.1 (6.3-8.2) g/dL Albumin 4.0 (3.5-5.0) g/dL Lipase 39 (23-300) U/L Disposition <Jorge Luis Don - Last Filed: 07/04/22 06:33> Decision Time: 08:03 <Vaughn Pollock - Last Filed: 07/04/22 08:03> Clinical Impression: SBO (small bowel obstruction) Disposition: ADMITTED IP TO THIS [facility] Condition: Fair Referrals: Tung Christensen MD [Primary Care Provider] - 1-2 days
--- NOTE | 2022-07-04 07:01 | CT ---
EXAMINATION TYPE: CT abdomen pelvis w con DATE OF EXAM: 07/04/2022 HISTORY: Right side abdominal pain, possible gall bladder CT DLP: 919.4mGycm Automated Exposure Control for Dose Reduction was Utilized. CONTRAST: CT scan of the abdomen and pelvis is performed without oral but with IV Contrast, patient injected wi th 100 mL of Isovue 300. COMPARISON: CT abdomen and pelvis June 07, 2022 FINDINGS: LUNG BASES: No significant abnormality is appreciated. LIVER/GB: Lobulated contour to the liver consistent with cirrhosis. Liver size is stable and slightly prominent. Heterogeneity redemonstrated. Some adjacent ascites again seen with slightly thickened or nodular component. Numerous dependent gallstones and gallbladder redemonstrated. No new biliary dila tation seen. Main portal vein remains patent. PANCREAS: No significant abnormality is seen. SPLEEN: Spleen size is stable and slightly prominent measuring 13.1 cm long axis coronal image 56. ADRENALS: No significant abnormality is seen. KIDNEYS: Symmetric cortical medullary uptake and excretion without hydronephrosis seen bilaterally. BOWEL: Suboptimal study without enteric contrast. Surgical changes from gastric bypass procedure in t he epigastric region are redemonstrated. Additional surgical sutures in the left-sided small bowel lo ops. No suspicious small or large bowel dilatation. There is a single prominent fecal filled small sean wel loop in the anterior pelvis measuring up to 2.6 cm in size. Mild fat stranding with slight swirli ng of vessels in the right lower quadrant is seen on coronal images 21 through 28. Internal hernia ledesma spected. No free air. Normal-appearing appendix from the cecum above this. UTERUS/ADNEXA: Anteverted uterus. Tubal ligation clips along the periphery. Calcification in the fund us favors tiny fibroid. LYMPH NODES: No new greater than 1cm abdominal or pelvic lymph nodes are appreciated. OSSEOUS STRUCTURES: Transitional type L6 vertebra is sacralized on the left. There is vacuum disc phe nomenon with moderate disc space narrowing at L4-L5 and L5-L6 levels. OTHER: No significant additional abnormality is seen. IMPRESSION: 1. Suspect partial small bowel obstruction related to internal hernia causing swirling of vessels and local mass effect in the right pelvis. Distal small loop is prominent up to 2.6 cm and fecal filled. Overall nonobstructive bowel gas pattern. Similar appearance to prior CT. 2. Evidence of cirrhosis and underlying portal venous hypertension. No significant change in finding from most recent CT.
--- NOTE | 2022-07-04 07:44 | US ---
EXAMINATION TYPE: US abdomen limited DATE OF EXAM: 07/04/2022 COMPARISON: Same day CT CLINICAL HISTORY: Right sided abd pain, h/o gallbladder issues. ABD pain TECHNIQUE: Multiple sonographic images of the right upper quadrant are obtained. 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 Visualized li rylan heterogeneously hyperechoic. No focal masses or ductal dilatation. Numerous shadowing mobile gall stones redemonstrated. No adjacent ascites. Gallbladder wall thickening upper limits of normal. No ri ght-sided hydronephrosis. IMPRESSION: Gallstones without secondary ultrasound evidence for acute cholecystitis. In patient with right upper quadrant pain and sonographic Wright sign it is not entirely excluded. Underlying cirrho sis noted. No significant change from CT study earlier today.
[2022-07-04] MEDS ORDERED: SODIUM CHLORIDE 0.9% 1,000 ML IV STA (07:56)
[2022-07-04] MEDS ORDERED: HYDROmorphone 0.5 MG/0.5 ML SYRINGE IVP STA (07:56)
[2022-07-04] MEDS ORDERED: NALOXONE 0.4 MG/ML 1 ML VIAL IV PRN (08:00)
[2022-07-04] MEDS ORDERED: ONDANSETRON 4 MG/2 ML VIAL IVP PRN (08:00)
[2022-07-04 10:12] LABS: Appearance,Urine Clear (Clear); Bacteria,Urine Rare /hpf; Bilirubin,Urine Negative (Negative); Blood,Urine Negative (Negative); Color,Urine Light Yellow; Glucose,Urine (UA) Negative (Negative); Ketones,Urine Negative (Negative); Leukocyte Esterase,Urine Trace (Negative); Mucus,Urine Rare /hpf; Nitrite,Urine Negative (Negative); PH, Urine 7.5 (5.0-8.0); Protein,Urine Negative (Negative); RBC,Urine 3 /hpf (0-5); Specific Gravity,Urine >1.050 (1.001-1.035); Squamous Epithelial Cell,Urine 15 /hpf (0-4); Urobilinogen,Urine <2.0 mg/dL (<2.0); WBC,Urine 4 /hpf (0-5)
[2022-07-04] MEDS: THIAMINE 100 MG TAB PO SCH (11:42)
[2022-07-04] MEDS: FOLIC ACID 1 MG TAB PO SCH (11:42)
--- NOTE | 2022-07-04 12:54 | P.GSCN ---
History of Present Illness Consult date: 07/04/22 History of present illness: CHIEF COMPLAINT: Abdominal pain HISTORY OF PRESENT ILLNESS: This is a 52-year-old female who presented with right lower quadrant abdominal pain. Symptoms started Monday evening. Patient was recently hospitalized in May for chronic cholecystitis and enteritis. Patient reports that she had been doing well up until Monday. She has been having nausea and decreased oral intake. She states that she has been having regular bowel movements and flatus. Her last colonoscopy was 2 years ago and she reports it is negative. She does complain of abdominal bloating. Denies any fever chills or sweats. She had a computed tomography scan abdomen and pelvis showing a partial small bowel obstruction secondary to internal hernia's. There is also evidence of gallstones on her ultrasound. Patient does have past surgical history including gastric bypass, tummy tuck and tubal ligation. She denies any cardiac history. Patient does have a history of alcoholic liver cirrhosis. She reports that she is not actively drinking. PAST MEDICAL HISTORY: See below PAST SURGICAL HISTORY: See below MEDICATIONS: See below ALLERGIES: See below SOCIAL HISTORY: No illicit drug use. REVIEW OF SYSTEMS: CONSTITUTIONAL: Denies fever or chills. HEENT: Denies blurred vision, vision changes, or eye pain. Denies hemoptysis CARDIOVASCULAR: Denies chest pain or pressure. RESPIRATORY: No shortness of breath. GASTROINTESTINAL: See HPI for pertinent findings HEMATOLOGIC: Denies bleeding disorders. GENITOURINARY: Denies any blood in urine or increased urinary frequency. SKIN: Denies pruitis. Denies rash. PHYSICAL EXAM: VITAL SIGNS: Reviewed GENERAL: Well-developed in no acute distress. HEENT: No sclera icterus. Extraocular movements grossly intact. Moist buccal mucosa. Head is atraumatic, normocephalic. No nasal drainage. ABDOMEN: Soft. Obese. Nondistended. Tenderness with palpation to right lower quadrant. NEUROLOGIC: Alert and oriented. Cranial nerves II through XII grossly intact. LABORATORY DATA: WBC is 6.7 hgb is 11.3 platelets 214 Sodium 140 potassium 4.6 creatinine 0.50 LFTs normal lipase 39 IMAGING: Computed tomography scan abdomen and pelvis suspect partial small obstruction related to internal hernia causing swelling of vessels and local mass effect in the right pelvis. Distal small bowel loop is prominent up to 2.6 cm and fecal filled. Overall nonobstructive bowel gas pattern. Similar appearance to prior CT. Evidence of cirrhosis and underlying portal venous hypertension. No significant change in finding from most recent CT. Normal appendix and cecum ASSESSMENT: 1. Right lower quadrant abdominal pain 2. Partial small bowel obstruction possibly related to internal hernia noted on computed tomography scan 3. Cholelithiasis with chronic cholecystitis 4. History of alcoholic liver cirrhosis 5. Recent hospitalization with enteritis and chronic cholecystitis PLAN: -Keep patient nothing by mouth except for ice chips -Continue supportive care -Continue IV fluids -Continue antiemetics and pain medication -Further recommendations forthcoming per surgeon Thank you for this consultation Physician Pipe Smoker Machine Operator note has been reviewed by physician. Signing provider agrees with the documented findings, assessment, and plan of care. Past Medical History Past Medical History: Liver Disease Additional Past Medical History / Comment(s): CIRRHOSIS. ESOPHAGEAL VARICIES History of Any Multi-Drug Resistant Organisms: None Reported Past Surgical History: Bariatric Surgery, Tubal Ligation Additional Past Surgical History / Comment(s): tummy tuck, gastric bypass, EGD, COLONOSCOPY Past Anesthesia/Blood Transfusion Reactions: No Reported Reaction Smoking Status: Current every day smoker - Past Family History Father Family Medical History: Deep Vein Thrombosis (DVT) Medications and Allergies Home Medications Medication Instructions Recorded Confirmed Type Dicyclomine [Bentyl] 10 mg PO TID PRN #20 cap 06/15/22 07/04/22 Rx Folic Acid 1 mg PO DAILY@1200 #30 tab 06/15/22 07/04/22 Rx Ondansetron [Zofran] 4 mg PO Q6HR PRN #20 tab 06/15/22 07/04/22 Rx Pantoprazole Sodium [Protonix] 40 mg PO BID 30 Days #60 tab 06/15/22 07/04/22 Rx Thiamine [Vitamin B-1] 100 mg PO DAILY@1200 #30 tab 06/15/22 07/04/22 Rx Multivitamins, Thera [Multivitamin 1 tab PO DAILY@1200 07/04/22 07/04/22 History (formulary)] Allergies Allergy/AdvReac Type Severity Reaction Status Date / Time No Known Allergies Allergy Verified 07/04/22 07:08 Surgical - Exam Vital Signs Pulse Resp BP Pulse Ox 107 H 18 112/77 98 07/04/22 05:15 07/04/22 05:15 07/04/22 05:15 07/04/22 05:15 Results - Labs 07/04/22 05:50 07/04/22 05:50 Abnormal Lab Results - Last 24 Hours (Table) 07/04/22 07/04/22 07/04/22 Range/Units 05:35 05:50 05:50 Hgb 11.3 L (11.4-16.0) gm/dL MCV 79.4 L (80.0-100.0) fL Creatinine 0.50 L (0.52-1.04) mg/dL Ur Specific [place] >1.050 H (1.001-1.035) Ur Leukocyte Esterase Trace H (Negative) Ur Squamous Epith Cells 15 H (0-4) /hpf Urine Bacteria Rare H (None) /hpf Urine Mucus Rare H (None) /hpf Diabetes panel 07/04/22 Range/Units 05:50 Sodium 140 (137-145) mmol/L Potassium 4.6 (3.5-5.1) mmol/L Chloride 107 (98-107) mmol/L Carbon Dioxide 27 (22-30) mmol/L BUN 13 (7-17) mg/dL Creatinine 0.50 L (0.52-1.04) mg/dL Glucose 97 (74-99) mg/dL Calcium 9.3 (8.4-10.2) mg/dL AST 29 (14-36) U/L ALT 21 (4-34) U/L Alkaline Phosphatase 99 (38-126) U/L Total Protein 8.1 (6.3-8.2) g/dL Albumin 4.0 (3.5-5.0) g/dL Calcium panel 07/04/22 Range/Units 05:50 Calcium 9.3 (8.4-10.2) mg/dL Albumin 4.0 (3.5-5.0) g/dL Pituitary panel 07/04/22 Range/Units 05:50 Sodium 140 (137-145) mmol/L Potassium 4.6 (3.5-5.1) mmol/L Chloride 107 (98-107) mmol/L Carbon Dioxide 27 (22-30) mmol/L BUN 13 (7-17) mg/dL Creatinine 0.50 L (0.52-1.04) mg/dL Glucose 97 (74-99) mg/dL Calcium 9.3 (8.4-10.2) mg/dL Adrenal panel 07/04/22 Range/Units 05:50 Sodium 140 (137-145) mmol/L Potassium 4.6 (3.5-5.1) mmol/L Chloride 107 (98-107) mmol/L Carbon Dioxide 27 (22-30) mmol/L BUN 13 (7-17) mg/dL Creatinine 0.50 L (0.52-1.04) mg/dL Glucose 97 (74-99) mg/dL Calcium 9.3 (8.4-10.2) mg/dL Total Bilirubin 0.3 (0.2-1.3) mg/dL AST 29 (14-36) U/L ALT 21 (4-34) U/L Alkaline Phosphatase 99 (38-126) U/L Total Protein 8.1 (6.3-8.2) g/dL Albumin 4.0 (3.5-5.0) g/dL
[2022-07-04] MEDS: HYDROmorphone 0.5 MG/0.5 ML SYRINGE IVP PRN ×4 (12:58→23:37)
--- NOTE | 2022-07-04 13:59 | P.HPIM ---
History of Present Illness H&P Date: 07/04/22 This is a 52 year old female who follows with Dr. Christensen, medical history of Liver cirrhosis with esophageal varices, gastric bypass, tummy tuck, tubal ligation. Patient is a daily smoker reports 4 to 5 cigarettes per day, marijuana use daily. Prior history of alcohol abuse, currently not drinking and has been taken off the liver transplant list at this time. Presents to the hospital with complaints of right sided abdominal pain right lower quadrant that has been on going since last Monday. She was hospitalized in May and evaluated for chronic cholecystitis and enteritis, and was recommended to follow up with surgery outpatient to discuss gallbladder removal, but she has not done so as of yet. Denies fever, chills, nausea or vomiting. Reports having bowel movement, her last one was yesterday, which was soft and brown. Denies diarrhea, melena, or bloody stool. Has increased abdominal bloating. CT abdomen pelvis completed showing possible partial small bowel obstruction from internal hernia and also local mass effect in the right pelvis. Distal small loop 2.6 cm which is fecal filled. There is cirrhosis and underlying portal venous hypertension. Abdominal ultrasound showing gallstones without evidence for acute cholecystitis although not entirely excluded. Liver enzymes are within normal limits on presentation, white count 6.7, hgb stable 11.3. She is afebrile, heart rate 82, blood pressure 102/68, 98% room air. General surgery has been consulted for further evaluation for now patient is placed NPO. REVIEW OF SYSTEMS: CONSTITUTIONAL: No fever, no malaise, no fatigue. HEENT: No recent visual problems or hearing problems. Denied any sore throat. CARDIOVASCULAR: No chest pain, orthopnea, PND, no palpitations, no syncope. PULMONARY: No shortness of breath, no cough, no hemoptysis. GASTROINTESTINAL: No diarrhea, no nausea, no vomiting. Right sided abdominal pain, upper and lower quad. Bloating. NEUROLOGICAL: No headaches, no weakness, no numbness. HEMATOLOGICAL: Denies any bleeding or petechiae. GENITOURINARY: Denies any burning micturition, frequency, or urgency. MUSCULOSKELETAL/RHEUMATOLOGICAL: Denies any joint pain, swelling, or any muscle pain. ENDOCRINE: Denies any polyuria or polydipsia. The rest of the 14-point review of systems is negative. PHYSICAL EXAMINATION: GENERAL: The patient is alert and oriented x3, not in any acute distress. Well developed, well nourished. HEENT: Pupils are round and equally reacting to light. EOMI. No scleral icterus. No conjunctival pallor. Normocephalic, atraumatic. No pharyngeal erythema. No thyromegaly. CARDIOVASCULAR: S1 and S2 present. No murmurs, rubs, or gallops. PULMONARY: Chest is clear to auscultation, no wheezing or crackles. ABDOMEN: Soft, tender Right lower quad, nondistended, Hypoactive bowel sounds. No palpable organomegaly. MUSCULOSKELETAL: No joint swelling or deformity. EXTREMITIES: No cyanosis, clubbing, or pedal edema. NEUROLOGICAL: Gross neurological examination did not reveal any focal deficits. SKIN: No rashes. Assessment and plan Assessment Acute right lower quadrant abdominal pain Partial small bowel obstruction from internal hernias Cholelisthiasis with chronic choleycystitis History alcoholic liver cirrhosis History chronic alcohol abuse currently not drinking Daily nicotine use Daily marijuana use GI prophylaxis DVT prophylaxis Full Code Plan Resume appropriate home medications Continue NPO General surgery consulted for further evaluation and recommendations Continue all other supportive care The impression and plan of care has been dictated by Annmarie Bellamy Nurse Practitioner as directed. Dr. Fred MD I have performed a history and physical examination and medical decision making of this patient, discussed the same with the dictator, and agree with the dictators assessment and plan as written, documented as a scribe. Based on total visit time, I have performed more than 50% of this visit. Past Medical History Past Medical History: Liver Disease Additional Past Medical History / Comment(s): CIRRHOSIS. ESOPHAGEAL VARICIES History of Any Multi-Drug Resistant Organisms: None Reported Past Surgical History: Bariatric Surgery, Tubal Ligation Additional Past Surgical History / Comment(s): tummy tuck, gastric bypass, EGD, COLONOSCOPY Past Anesthesia/Blood Transfusion Reactions: No Reported Reaction Past Psychological History: Anxiety Smoking Status: Current every day smoker Past Alcohol Use History: None Reported Past Drug Use History: Marijuana - Past Family History Father Family Medical History: Deep Vein Thrombosis (DVT) Medications and Allergies Home Medications Medication Instructions Recorded Confirmed Type Dicyclomine [Bentyl] 10 mg PO TID PRN #20 cap 06/15/22 07/04/22 Rx Folic Acid 1 mg PO DAILY@1200 #30 tab 06/15/22 07/04/22 Rx Ondansetron [Zofran] 4 mg PO Q6HR PRN #20 tab 06/15/22 07/04/22 Rx Pantoprazole Sodium [Protonix] 40 mg PO BID 30 Days #60 tab 06/15/22 07/04/22 Rx Thiamine [Vitamin B-1] 100 mg PO DAILY@1200 #30 tab 06/15/22 07/04/22 Rx Multivitamins, Thera [Multivitamin 1 tab PO DAILY@1200 07/04/22 07/04/22 History (formulary)] Allergies Allergy/AdvReac Type Severity Reaction Status Date / Time No Known Allergies Allergy Verified 07/04/22 07:08 Physical Exam Vitals: Vital Signs Temp Pulse Resp BP Pulse Ox 07/04/22 09:14 97.7 F 07/04/22 09:02 82 18 102/68 98 07/04/22 05:25 97 16 111/82 99 07/04/22 05:15 107 H 18 112/77 98 Intake and Output 07/03/22 07/04/22 07/04/22 22:59 06:59 14:59 Other: Weight 74.843 kg Results CBC & Chem 7: 07/04/22 05:50 07/04/22 05:50 Labs: Abnormal Lab Results - Last 24 Hours (Table) 07/04/22 07/04/22 Range/Units 05:50 05:50 Hgb 11.3 L (11.4-16.0) gm/dL MCV 79.4 L (80.0-100.0) fL Creatinine 0.50 L (0.52-1.04) mg/dL Assessment and Plan Time with Patient: Less than 30
[2022-07-04] MEDS: PANTOPRAZOLE 40 MG TABLET PO SCH (16:16)
[2022-07-04] MEDS: IOPAMIDOL CONTRAST (ORAL USE) VIAL PO PRN ×2 (16:32→17:25)
--- NOTE | 2022-07-04 18:50 | CT ---
EXAMINATION TYPE: CT abdomen pelvis wo con DATE OF EXAM: 07/04/2022 COMPARISON: 07/04/2022 HISTORY: abdominal pain. oral contrast only.pt did have IV contrast earlier today. CT DLP: 546 mGycm Automated exposure control for dose reduction was used. Images obtained from the diaphragm to the floor the pelvis with oral contrast only. The lung bases show mild subsegmental atelectasis. Heart size is normal. No pericardial effusion. Mahnaz er spleen appear intact. There are clips from gastric bariatric surgery. No evidence of pancreatic ma ss. There is increased density in the dependent gallbladder that is likely multiple gallstones. The b ile ducts are not dilated. Gallbladder is large and measures 4.2 cm in diameter. There is lobulated a ppearance of this liver could relate to cirrhosis. There is no adrenal mass. Kidneys have normal size. No hydronephrosis. There is some apparent contras t material in the kidneys. The ureters are not dilated. No retroperitoneal adenopathy. The bladder di stends smoothly with contrast material. No inguinal hernia. There is small amount of low-density free fluid in the pelvis. There are clips from tubal ligation. The appendix is medial and appears normal and best seen on the coronal images. No evidence of thicken ed appendix. There is some mild mesenteric edema and fat stranding in the right lower quadrant inferi or to the cecum involving the distal small bowel. The lumbar spine is intact. There is narrowing at L3-4 and L4-5 disc spaces with vacuum disc. No comp ression fracture. The bony pelvis is intact. The hip joints are intact. IMPRESSION: There is some mild small bowel mesenteric fat stranding in the right lower quadrant which appears new compared to exam earlier today could relate to some nonspecific inflammatory process. Appendix is se en and appears normal. I do not see any convincing evidence of a bowel obstruction. Cholelithiasis. Lobulated liver suggestive of cirrhosis.
[2022-07-05] MEDS: HYDROmorphone 0.5 MG/0.5 ML SYRINGE IVP PRN ×6 (03:18→21:59)
[2022-07-05] MEDS: PANTOPRAZOLE 40 MG TABLET PO SCH ×2 (06:42→17:53)
[2022-07-05] MEDS: FOLIC ACID 1 MG TAB PO SCH (11:49)
[2022-07-05] MEDS: THIAMINE 100 MG TAB PO SCH (11:49)
--- NOTE | 2022-07-05 14:34 | P.PN ---
Subjective Progress Note Date: 07/05/22 CHIEF COMPLAINT: Abdominal pain HISTORY OF PRESENT ILLNESS: Patient reports to having right lower abdominal pain. Denies any nausea vomiting. Tolerating clear liquids. Computed tomography scan abdomen and pelvis with oral contrast shows mild small bowel mesenteric fat stranding in the right lower quadrant which appears new compared to exam earlier today could relate to some nonspecific inflammatory process. Appendix is seen appears normal. I do not see any convincing evidence of a bowel obstruction. Cholelithiasis. Lobulated liver suggestive of cirrhosis. Afebrile. WBC 6.7 Patient seen and examined with Dr. olea PHYSICAL EXAM: VITAL SIGNS: Reviewed. GENERAL: Well-developed in no acute distress. HEENT: No sclera icterus. Extraocular movements grossly intact. Moist buccal mucosa. Head is atraumatic, normocephalic. ABDOMEN: Soft. Nondistended. Right lower abdomen tenderness NEUROLOGIC: Alert and oriented. Cranial nerves II through XII grossly intact. ASSESSMENT: 1. Right lower quadrant abdominal pain possibly due to adhesions. No evidence of bowel obstruction noted on repeat CAT scan with oral contrast 2. Cholelithiasis with chronic cholecystitis 3. History of alcoholic liver cirrhosis 4. Recent hospitalization with enteritis and chronic cholecystitis 5. History of gastric bypass and panniculectomy PLAN: -Advance diet to full liquids -Continue supportive care -Encouraged patient to increase activity level Physician Public Defender note has been reviewed by physician. Signing provider agrees with the documented findings, assessment, and plan of care. Objective - Vital Signs Vital signs: Vital Signs Temp 97.6 F 07/05/22 07:44 Pulse 69 07/05/22 07:44 Resp 16 07/05/22 07:44 BP 119/78 07/05/22 07:44 Pulse Ox 100 07/05/22 07:44 FiO2 Intake & Output 07/04/22 07/05/22 07/05/22 18:59 06:59 18:59 Intake Total 1080 Balance 1080 Weight 74.843 kg Intake: Intake, IV Titration 1080 Amount Sodium Chloride 0.9% 1, 1080 000 ml @ 120 mls/hr IV . Q8H20M STA Rx#:[id number] Other: Voiding Method Toilet # Voids 1 - Labs CBC & Chem 7: 07/04/22 05:50 07/04/22 05:50
--- NOTE | 2022-07-05 15:11 | P.PN ---
Subjective Progress Note Date: 07/05/22 This is a 52 year old female who follows with Dr. Christensen, medical history of Liver cirrhosis with esophageal varices, gastric bypass, tummy tuck, tubal ligation. Patient is a daily smoker reports 4 to 5 cigarettes per day, marijuana use daily. Prior history of alcohol abuse, currently not drinking and has been taken off the liver transplant list at this time. Presents to the hospital with complaints of right sided abdominal pain right lower quadrant that has been on going since last Monday. She was hospitalized in May and evaluated for chronic cholecystitis and enteritis, and was recommended to follow up with surgery outpatient to discuss gallbladder removal, but she has not done so as of yet. Denies fever, chills, nausea or vomiting. Reports having bowel movement, her last one was yesterday, which was soft and brown. Denies diarrhea, melena, or bloody stool. Has increased abdominal bloating. CT abdomen pelvis completed showing possible partial small bowel obstruction from internal hernia and also local mass effect in the right pelvis. Distal small loop 2.6 cm which is fecal filled. There is cirrhosis and underlying portal venous hypertension. Abdominal ultrasound showing gallstones without evidence for acute cholecystitis although not entirely excluded. Liver enzymes are within normal limits on presentation, white count 6.7, hgb stable 11.3. She is afebrile, heart rate 82, blood pressure 102/68, 98% room air. General surgery has been consulted for further evaluation for now patient is placed NPO. 07/05/2022 Patient evaluated sitting up with family at bedside. Reports continued right lower quadrant abdominal pain. Worse after eating full liquid lunch. She had repeat abdominal pelvis CT last night showing mild small bowel mesenteric fat stranding right lower quadrant which appears new possibly relating to nonspecific inflammatory process. Appendix appears normal. There are likely multiple gall stones the bile ducts are not dilated. The gallbladder is enlarged. Liver cirrhosis. No evidence for bowel obstruction. Remains afebrile, on room air. Review of Systems Constitutional: Denied any fatigue denied any fever. Cardio vascular: denied any chest pain, palpitations Gastrointestinal: denied any nausea, vomiting, diarrhea Pulmonary: Denied any shortness of breath cough Neurologic denied any new focal deficits All inpatient medications were reviewed and appropriate changes in these medications as dictated in the interval history and assessment and plan. PHYSICAL EXAMINATION: GENERAL: The patient is alert and oriented x3, not in any acute distress. Well d eveloped, well nourished. HEENT: Pupils are round and equally reacting to light. EOMI. No scleral icterus. No conjunctival pallor. Normocephalic, atraumatic. No pharyngeal erythema. No thyromegaly. CARDIOVASCULAR: S1 and S2 present. No murmurs, rubs, or gallops. PULMONARY: Chest is clear to auscultation, no wheezing or crackles. ABDOMEN: Soft, tender Right lower quad, nondistended, Hypoactive bowel sounds. No palpable organomegaly. MUSCULOSKELETAL: No joint swelling or deformity. EXTREMITIES: No cyanosis, clubbing, or pedal edema. NEUROLOGICAL: Gross neurological examination did not reveal any focal deficits. SKIN: No rashes. Assessment and plan Assessment Acute right lower quadrant abdominal pain Partial small bowel obstruction from internal hernias appears resolved, no convincing evidence for bowel obstruction found on repeat imaging. Cholelisthiasis with chronic choleycystitis History alcoholic liver cirrhosis History chronic alcohol abuse currently not drinking Daily nicotine use Daily marijuana use GI prophylaxis DVT prophylaxis Full Code Plan Diet upgraded to full liquid General surgery consultation further recommendations pending Continue all other supportive care The impression and plan of care has been dictated by Annmarie Bellamy Nurse Practitioner as directed. Dr. Fred MD I have performed a history and physical examination and medical decision making of this patient, discussed the same with the dictator, and agree with the dictators assessment and plan as written, documented as a scribe. Based on total visit time, I have performed more than 50% of this visit. Objective - Vital Signs Vital signs: Vital Signs Temp 97.6 F 07/05/22 07:44 Pulse 69 07/05/22 07:44 Resp 16 07/05/22 07:44 BP 119/78 07/05/22 07:44 Pulse Ox 100 07/05/22 07:44 FiO2 Intake & Output 07/04/22 07/05/22 07/05/22 18:59 06:59 18:59 Intake Total 1080 Balance 1080 Weight 74.843 kg Intake: Intake, IV Titration 1080 Amount Sodium Chloride 0.9% 1, 1080 000 ml @ 120 mls/hr IV . Q8H20M STA Rx#:[id number] Other: Voiding Method Toilet # Voids 1 - Labs CBC & Chem 7: 07/04/22 05:50 07/04/22 05:50 Labs: Abnormal Lab Results - Last 24 Hours (Table) 07/04/22 Range/Units 05:35 Ur Specific Sawyer >1.050 H (1.001-1.035) Ur Leukocyte Esterase Trace H (Negative) Ur Squamous Epith Cells 15 H (0-4) /hpf Urine Bacteria Rare H (None) /hpf Urine Mucus Rare H (None) /hpf Assessment and Plan Time with Patient: Less than 30
[2022-07-06] MEDS: HYDROmorphone 0.5 MG/0.5 ML SYRINGE IVP PRN ×6 (02:28→21:20)
[2022-07-06] MEDS: PANTOPRAZOLE 40 MG TABLET PO SCH ×2 (06:31→17:06)
[2022-07-06] MEDS: FOLIC ACID 1 MG TAB PO SCH (12:27)
[2022-07-06] MEDS: THIAMINE 100 MG TAB PO SCH (12:28)
--- NOTE | 2022-07-06 12:33 | P.PN ---
Subjective Progress Note Date: 07/06/22 CHIEF COMPLAINT: Abdominal pain HISTORY OF PRESENT ILLNESS: Patient continues to complain of abdominal pain. She reports that her pain is about the same since admission. She is having flatus. No bowel movement. Denies any nausea or vomiting. She is requiring the Dilaudid IV every 3 hours. Yesterday she was started on a full liquid diet initially that caused increase in pain after eating the whole tray. However, this morning she did better with the full liquids since she didn't eat everything on the tray. Afebrile. WBC 6. Patient seen and examined with Dr. olea PHYSICAL EXAM: VITAL SIGNS: Reviewed. GENERAL: Well-developed in no acute distress. HEENT: No sclera icterus. Extraocular movements grossly intact. Moist buccal mucosa. Head is atraumatic, normocephalic. ABDOMEN: Soft. Nondistended. Right lower abdomen tenderness NEUROLOGIC: Alert and oriented. Cranial nerves II through XII grossly intact. ASSESSMENT: 1. Right lower quadrant abdominal pain possibly due to adhesions. No evidence of bowel obstruction noted on repeat CAT scan with oral contrast 2. Cholelithiasis with chronic cholecystitis 3. History of alcoholic liver cirrhosis 4. Recent hospitalization with enteritis and chronic cholecystitis 5. History of gastric bypass and panniculectomy PLAN: -Continue full liquids -Continue supportive care -Encouraged patient to increase activity level -Continue to monitor Physician Bag Machine Tender note has been reviewed by physician. Signing provider agrees with the documented findings, assessment, and plan of care. Objective - Vital Signs Vital signs: Vital Signs Temp 97.9 F 07/06/22 07:31 Pulse 69 07/06/22 07:31 Resp 18 07/06/22 07:31 BP 110/79 07/06/22 07:31 Pulse Ox 99 07/06/22 07:31 FiO2 Intake & Output 07/05/22 07/06/22 07/06/22 18:59 06:59 18:59 Intake Total 200 Balance 200 Intake: Oral 200 Other: # Voids 2 3 - Labs CBC & Chem 7: 07/04/22 05:50 07/04/22 05:50
[2022-07-06 12:56] LABS: Basophils % (A) 1 %; Eosinophils # (A) 0.1 k/uL (0-0.7); Eosinophils % (A) 2 %; HCT 36.3 % (34.0-46.0); HGB 10.9 gm/dL (11.4-16.0); Hypochromasia Moderate; Lymphocytes % (A) 24 %; MCH 24.5 pg (25.0-35.0); MCV 81.6 fL (80.0-100.0); Mean Platelet Volume 8.6; Monocytes # (A) 0.2 k/uL (0-1.0); Monocytes % (A) 5 %; Neutrophils # (A) 2.7 k/uL (1.3-7.7); Neutrophils % (A) 66 %; Platelet Count 196 k/uL (150-450); RBC 4.44 m/uL (3.80-5.40); RDW 15.8 % (11.5-15.5); WBC 4.1 k/uL (3.8-10.6)
--- NOTE | 2022-07-06 15:10 | P.PN ---
Subjective Progress Note Date: 07/06/22 This is a 52 year old female who follows with Dr. Christensen, medical history of Liver cirrhosis with esophageal varices, gastric bypass, tummy tuck, tubal ligation. Patient is a daily smoker reports 4 to 5 cigarettes per day, marijuana use daily. Prior history of alcohol abuse, currently not drinking and has been taken off the liver transplant list at this time. Presents to the hospital with complaints of right sided abdominal pain right lower quadrant that has been on going since last Monday. She was hospitalized in May and evaluated for chronic cholecystitis and enteritis, and was recommended to follow up with surgery outpatient to discuss gallbladder removal, but she has not done so as of yet. Denies fever, chills, nausea or vomiting. Reports having bowel movement, her last one was yesterday, which was soft and brown. Denies diarrhea, melena, or bloody stool. Has increased abdominal bloating. CT abdomen pelvis completed showing possible partial small bowel obstruction from internal hernia and also local mass effect in the right pelvis. Distal small loop 2.6 cm which is fecal filled. There is cirrhosis and underlying portal venous hypertension. Abdominal ultrasound showing gallstones without evidence for acute cholecystitis although not entirely excluded. Liver enzymes are within normal limits on presentation, white count 6.7, hgb stable 11.3. She is afebrile, heart rate 82, blood pressure 102/68, 98% room air. General surgery has been consulted for further evaluation for now patient is placed NPO. 07/05/2022 Patient evaluated sitting up with family at bedside. Reports continued right lower quadrant abdominal pain. Worse after eating full liquid lunch. She had repeat abdominal pelvis CT last night showing mild small bowel mesenteric fat stranding right lower quadrant which appears new possibly relating to nonspecific inflammatory process. Appendix appears normal. There are likely multiple gall stones the bile ducts are not dilated. The gallbladder is enlarged. Liver cirrhosis. No evidence for bowel obstruction. Remains afebrile, on room air. 07/06/2022 Patient evaluated today ambulating in room. Continues with right lower quadrant abdominal pain. She states pain had improved in the afternoon yesterday, and reports tolerating some liquid diet. Has not had a BM since admission. General surgery following. Afebrile, heart rate 79, blood pressure 100/68, 98% room air. Review of Systems Constitutional: Denied any fatigue denied any fever. Cardio vascular: denied any chest pain, palpitations Gastrointestinal: denied any nausea, vomiting, diarrhea Pulmonary: Denied any shortness of breath cough Neurologic denied any new focal deficits All inpatient medications were reviewed and appropriate changes in these medications as dictated in the interval history and assessment and plan. PHYSICAL EXAMINATION: GENERAL: The patient is alert and oriented x3, not in any acute distress. Well developed, well nourished. HEENT: Pupils are round and equally reacting to light. EOMI. No scleral icterus. No conjunctival pallor. Normocephalic, atraumatic. No pharyngeal erythema. No thyromegaly. CARDIOVASCULAR: S1 and S2 present. No murmurs, rubs, or gallops. PULMONARY: Chest is clear to auscultation, no wheezing or crackles. ABDOMEN: Soft, tender Right lower quad, nondistended, Hypoactive bowel sounds. No palpable organomegaly. MUSCULOSKELETAL: No joint swelling or deformity. EXTREMITIES: No cyanosis, clubbing, or pedal edema. NEUROLOGICAL: Gross neurological examination did not reveal any focal deficits. SKIN: No rashes. Assessment and plan Assessment Acute right lower quadrant abdominal pain possibly from adhesions Partial small bowel obstruction from internal hernias appears resolved, no convincing evidence for bowel obstruction found on repeat imaging. Cholelisthiasis with chronic choleycystitis History alcoholic liver cirrhosis History chronic alcohol abuse currently not drinking Daily nicotine use Daily marijuana use GI prophylaxis DVT prophylaxis Full Code Plan Diet upgraded to full liquid General surgery consultation further recommendations pending Continue to monitor and repeat labs in AM Pain management Continue all other supportive care The impression and plan of care has been dictated by Annmarie Bellamy, Nurse Practitioner as directed. Dr. Fred MD I have performed a history and physical examination and medical decision making of this patient, discussed the same with the dictator, and agree with the dictators assessment and plan as written, documented as a scribe. Based on total visit time, I have performed more than 50% of this visit. Objective - Vital Signs Vital signs: Vital Signs Temp 97.9 F 07/06/22 07:31 Pulse 69 07/06/22 07:31 Resp 18 07/06/22 07:31 BP 110/79 07/06/22 07:31 Pulse Ox 99 07/06/22 07:31 FiO2 Intake & Output 07/05/22 07/06/22 07/06/22 18:59 06:59 18:59 Intake Total 200 Balance 200 Intake: Oral 200 Other: # Voids 2 3 - Labs CBC & Chem 7: 07/06/22 12:35 07/04/22 05:50 Assessment and Plan Time with Patient: Less than 30
[2022-07-07] MEDS: HYDROmorphone 0.5 MG/0.5 ML SYRINGE IVP PRN ×4 (00:51→20:17)
[2022-07-07] MEDS: PANTOPRAZOLE 40 MG TABLET PO SCH ×2 (06:38→17:36)
[2022-07-07 10:41] LABS: Basophils # (A) 0.04 X 10*3/uL (0.00-0.10); Eosinophils # (A) 0.15 X 10*3/uL (0.04-0.35); Eosinophils % (A) 3.9 %; HCT 35.3 % (37.2-46.3); HGB 10.7 g/dL (12.0-15.0); Immature Grans, Automated 0.3 %; Lymphocytes # (A) 1.02 X 10*3/uL (0.90-5.00); Lymphocytes % (A) 26.4 %; MCH 24.3 pg (27.0-32.0); MCHC 30.3 g/dL (32.0-37.0); Mean Platelet Volume 10.7 fL (9.5-12.2); Monocytes # (A) 0.39 X 10*3/uL (0.20-1.00); Monocytes % (A) 10.1 %; NRBC Per 100 WBC 0 /100 WBCS (0.0-0.0); Neutrophils # (A) 2.25 X 10*3/uL (1.80-7.70); Neutrophils % (A) 58.3 %; Platelet Count 223 X 10*3/uL (140-440); RBC 4.41 X 10*6/uL (4.10-5.20); RDW 15.8 % (11.5-14.5); WBC 3.86 X 10*3/uL (4.50-10.00)
[2022-07-07 11:06] LABS: African American GFR (CKD) 119.8 (60.0-200.0); Albumin 3.7 g/dL (3.8-4.9); Albumin/Globulin Ratio 1.06 (1.60-3.17); Anion Gap 9.4 mmol/L (10.00-18.00); BUN/Creat Ratio 11.5 Ratio (12.00-20.00); Blood Urea Nitrogen 6.9 mg/dL (9.0-27.0); Calcium 9.8 mg/dL (8.7-10.3); Carbon Dioxide 23.6 mmol/L (20.0-27.5); Globulin 3.5 g/dL (1.6-3.3); Non-African American GFR(CKD) 103.3 (60.0-200.0); Potassium 4.3 mmol/L (3.5-5.5); Total Bilirubin 0.3 mg/dL (0.30-1.20); Total Protein 7.2 g/dL (6.2-8.2)
[2022-07-07] MEDS: THIAMINE 100 MG TAB PO SCH (12:39)
[2022-07-07] MEDS: FOLIC ACID 1 MG TAB PO SCH (12:40)
--- NOTE | 2022-07-07 14:25 | P.PN ---
Subjective Progress Note Date: 07/07/22 CHIEF COMPLAINT: Abdominal pain HISTORY OF PRESENT ILLNESS: Patient is abdominal pain had shown some improvement this morning. She was feeling better. She had been up to shower. She tolerated her full liquid breakfast. She did report some lower abdominal pain that was worse with movement. She is having flatus. No bowel movement. Denies any nausea or vomiting. She does report feeling hungry. Diet was advanced at lunch 2 regular. Per nursing staff patient is having increase in pain after eating. Afebrile. WBC is 3.86 Hgb 10.7 platelets 223 sodium is 137 potassium 4.3 creatinine 0.6 PHYSICAL EXAM: VITAL SIGNS: Reviewed. GENERAL: Well-developed in no acute distress. HEENT: No sclera icterus. Extraocular movements grossly intact. Moist buccal mucosa. Head is atraumatic, normocephalic. ABDOMEN: Soft. Nondistended. Right lower abdomen tenderness NEUROLOGIC: Alert and oriented. Cranial nerves II through XII grossly intact. ASSESSMENT: 1. Right lower quadrant abdominal pain possibly due to adhesions. No evidence of bowel obstruction noted on repeat CAT scan with oral contrast 2. Cholelithiasis with chronic cholecystitis 3. History of alcoholic liver cirrhosis 4. Recent hospitalization with enteritis and chronic cholecystitis 5. History of gastric bypass and panniculectomy PLAN: -Diet downgraded to full liquids -Resume Bentyl -Continue supportive care -Encouraged patient to increase activity level -Continue to monitor -Further recommendations forthcoming per surgical Physician Diesel Fitter Mechanic note has been reviewed by physician. Signing provider agrees with the documented findings, assessment, and plan of care. Objective - Vital Signs Vital signs: Vital Signs Temp 97.7 F 07/07/22 13:23 Pulse 80 07/07/22 13:23 Resp 18 07/07/22 13:23 BP 124/83 07/07/22 13:23 Pulse Ox 99 07/07/22 13:23 FiO2 Intake & Output 07/06/22 07/07/22 07/07/22 18:59 06:59 18:59 Intake Total 480 Balance 480 Intake: Oral 480 Other: # Voids 2 - Labs CBC & Chem 7: 07/07/22 07:27 07/07/22 07:27 Labs: Abnormal Lab Results - Last 24 Hours (Table) 07/07/22 07/07/22 Range/Units 07:27 07:27 WBC 3.86 L (4.50-10.00) X 10*3/uL Hgb 10.7 L (12.0-15.0) g/dL Hct 35.3 L (37.2-46.3) % MCH 24.3 L (27.0-32.0) pg MCHC 30.3 L (32.0-37.0) g/dL RDW 15.8 H (11.5-14.5) % Anion Gap 9.40 L (10.00-18.00) mmol/L BUN 6.9 L (9.0-27.0) mg/dL BUN/Creatinine Ratio 11.50 L (12.00-20.00) Ratio Albumin 3.7 L (3.8-4.9) g/dL Globulin 3.5 H (1.6-3.3) g/dL Albumin/Globulin Ratio 1.06 L (1.60-3.17) g/dL
--- NOTE | 2022-07-07 14:28 | P.PN ---
Subjective Progress Note Date: 07/07/22 This is a 52 year old female who follows with Dr. Christensen, medical history of Liver cirrhosis with esophageal varices, gastric bypass, tummy tuck, tubal ligation. Patient is a daily smoker reports 4 to 5 cigarettes per day, marijuana use daily. Prior history of alcohol abuse, currently not drinking and has been taken off the liver transplant list at this time. Presents to the hospital with complaints of right sided abdominal pain right lower quadrant that has been on going since last Monday. She was hospitalized in May and evaluated for chronic cholecystitis and enteritis, and was recommended to follow up with surgery outpatient to discuss gallbladder removal, but she has not done so as of yet. Denies fever, chills, nausea or vomiting. Reports having bowel movement, her last one was yesterday, which was soft and brown. Denies diarrhea, melena, or bloody stool. Has increased abdominal bloating. CT abdomen pelvis completed showing possible partial small bowel obstruction from internal hernia and also local mass effect in the right pelvis. Distal small loop 2.6 cm which is fecal filled. There is cirrhosis and underlying portal venous hypertension. Abdominal ultrasound showing gallstones without evidence for acute cholecystitis although not entirely excluded. Liver enzymes are within normal limits on presentation, white count 6.7, hgb stable 11.3. She is afebrile, heart rate 82, blood pressure 102/68, 98% room air. General surgery has been consulted for further evaluation for now patient is placed NPO. 07/05/2022 Patient evaluated sitting up with family at bedside. Reports continued right lower quadrant abdominal pain. Worse after eating full liquid lunch. She had repeat abdominal pelvis CT last night showing mild small bowel mesenteric fat stranding right lower quadrant which appears new possibly relating to nonspecific inflammatory process. Appendix appears normal. There are likely multiple gall stones the bile ducts are not dilated. The gallbladder is enlarged. Liver cirrhosis. No evidence for bowel obstruction. Remains afebrile, on room air. 07/06/2022 Patient evaluated today ambulating in room. Continues with right lower quadrant abdominal pain. She states pain had improved in the afternoon yesterday, and reports tolerating some liquid diet. Has not had a BM since admission. General surgery following. Afebrile, heart rate 79, blood pressure 100/68, 98% room air. 07/07/2022 Patient evaluated today sitting up in chair. She is tearful and frustrated today about abdominal pain and not being able to tolerate much diet but feeling hungry. She was advanced to regular diet for lunch and did not tolerate well. General surgery continuing to monitor. Labs repeated today and liver enzymes continue to be within normal limits. She is afebrile, heart rate 80, blood pressure 124/83, 99% room air. Review of Systems Constitutional: Denied any fatigue denied any fever. Cardio vascular: denied any chest pain, palpitations Gastrointestinal: denied any nausea, vomiting, diarrhea Pulmonary: Denied any shortness of breath cough Neurologic denied any new focal deficits All inpatient medications were reviewed and appropriate changes in these medications as dictated in the interval history and assessment and plan. PHYSICAL EXAMINATION: GENERAL: The patient is alert and oriented x3, not in any acute distress. Well developed, well nourished. HEENT: Pupils are round and equally reacting to light. EOMI. No scleral icterus. No conjunctival pallor. Normocephalic, atraumatic. No pharyngeal erythema. No thyromegaly. CARDIOVASCULAR: S1 and S2 present. No murmurs, rubs, or gallops. PULMONARY: Chest is clear to auscultation, no wheezing or crackles. ABDOMEN: Soft, tender Right lower quad, nondistended, Hypoactive bowel sounds. No palpable organomegaly. MUSCULOSKELETAL: No joint swelling or deformity. EXTREMITIES: No cyanosis, clubbing, or pedal edema. NEUROLOGICAL: Gross neurological examination did not reveal any focal deficits. SKIN: No rashes. Assessment and plan Assessment Acute right lower quadrant abdominal pain possibly from adhesions Partial small bowel obstruction from internal hernias appears resolved, no convincing evidence for bowel obstruction found on repeat imaging. Cholelisthiasis with chronic choleycystitis History alcoholic liver cirrhosis History chronic alcohol abuse currently not drinking Daily nicotine use Daily marijuana use GI prophylaxis DVT prophylaxis Full Code Plan Unable to tolerate advanced diet General surgery consultation further recommendations pending Continue all other supportive care The impression and plan of care has been dictated by Annmarie Bellamy Nurse Practitioner as directed. Dr. Fred MD I have performed a history and physical examination and medical decision making of this patient, discussed the same with the dictator, and agree with the dictators assessment and plan as written, documented as a scribe. Based on total visit time, I have performed more than 50% of this visit. Objective - Vital Signs Vital signs: Vital Signs Temp 97.7 F 07/07/22 13:23 Pulse 80 07/07/22 13:23 Resp 18 07/07/22 13:23 BP 124/83 07/07/22 13:23 Pulse Ox 99 07/07/22 13:23 FiO2 Intake & Output 07/06/22 07/07/22 07/07/22 18:59 06:59 18:59 Intake Total 480 Balance 480 Intake: Oral 480 Other: # Voids 2 - Labs CBC & Chem 7: 07/07/22 07:27 07/07/22 07:27 Labs: Abnormal Lab Results - Last 24 Hours (Table) 07/07/22 07/07/22 Range/Units 07:27 07:27 WBC 3.86 L (4.50-10.00) X 10*3/uL Hgb 10.7 L (12.0-15.0) g/dL Hct 35.3 L (37.2-46.3) % MCH 24.3 L (27.0-32.0) pg MCHC 30.3 L (32.0-37.0) g/dL RDW 15.8 H (11.5-14.5) % Anion Gap 9.40 L (10.00-18.00) mmol/L BUN 6.9 L (9.0-27.0) mg/dL BUN/Creatinine Ratio 11.50 L (12.00-20.00) Ratio Albumin 3.7 L (3.8-4.9) g/dL Globulin 3.5 H (1.6-3.3) g/dL Albumin/Globulin Ratio 1.06 L (1.60-3.17) g/dL Assessment and Plan Time with Patient: Less than 30
[2022-07-08] MEDS: HYDROmorphone 0.5 MG/0.5 ML SYRINGE IVP PRN ×6 (00:11→22:04)
[2022-07-08] MEDS: DICYCLOMINE 10 MG CAP PO PRN ×3 (03:11→22:04)
[2022-07-08] MEDS: PANTOPRAZOLE 40 MG TABLET PO SCH ×2 (06:17→17:18)
[2022-07-08] MEDS: THIAMINE 100 MG TAB PO SCH (11:40)
[2022-07-08] MEDS: FOLIC ACID 1 MG TAB PO SCH (11:40)
--- NOTE | 2022-07-08 15:00 | P.PN ---
Subjective Progress Note Date: 07/08/22 CHIEF COMPLAINT: Abdominal pain HISTORY OF PRESENT ILLNESS: Patient continues to complain of abdominal pain. She describes the pain as cramping. She is having flatus. She did complain of lower abdominal pain. She denies bowel movements. Afebrile. No new labs PHYSICAL EXAM: VITAL SIGNS: Reviewed. GENERAL: Well-developed in no acute distress. HEENT: No sclera icterus. Extraocular movements grossly intact. Moist buccal mucosa. Head is atraumatic, normocephalic. ABDOMEN: Soft. Nondistended. Right lower abdomen tenderness NEUROLOGIC: Alert and oriented. Cranial nerves II through XII grossly intact. ASSESSMENT: 1. Right lower quadrant abdominal pain possibly due to adhesions. No evidence of bowel obstruction noted on repeat CAT scan with oral contrast 2. Cholelithiasis with chronic cholecystitis 3. History of alcoholic liver cirrhosis 4. Recent hospitalization with enteritis and chronic cholecystitis 5. History of gastric bypass and panniculectomy PLAN: -Patient scheduled for laparoscopic cholecystectomy on Monday with Dr. olea -Continue full liquid diet -Continue supportive care -Encouraged patient to increase activity level -Continue to monitor Physician [employer] Admin note has been reviewed by physician. Signing provider agrees with the documented findings, assessment, and plan of care. Objective - Vital Signs Vital signs: Vital Signs Temp 97.9 F 07/08/22 06:51 Pulse 75 07/08/22 06:51 Resp 16 07/08/22 06:51 BP 100/69 07/08/22 06:51 Pulse Ox 98 07/08/22 06:51 FiO2 Intake & Output 07/07/22 07/08/22 07/08/22 18:59 06:59 18:59 Other: Voiding Method Toilet # Voids 3 2 - Labs CBC & Chem 7: 07/07/22 07:27 07/07/22 07:27
--- NOTE | 2022-07-08 16:08 | P.PN ---
Subjective Progress Note Date: 07/08/22 This is a 52 year old female who follows with Dr. Christensen, medical history of Liver cirrhosis with esophageal varices, gastric bypass, tummy tuck, tubal ligation. Patient is a daily smoker reports 4 to 5 cigarettes per day, marijuana use daily. Prior history of alcohol abuse, currently not drinking and has been taken off the liver transplant list at this time. Presents to the hospital with complaints of right sided abdominal pain right lower quadrant that has been on going since last Monday. She was hospitalized in May and evaluated for chronic cholecystitis and enteritis, and was recommended to follow up with surgery outpatient to discuss gallbladder removal, but she has not done so as of yet. Denies fever, chills, nausea or vomiting. Reports having bowel movement, her last one was yesterday, which was soft and brown. Denies diarrhea, melena, or bloody stool. Has increased abdominal bloating. CT abdomen pelvis completed showing possible partial small bowel obstruction from internal hernia and also local mass effect in the right pelvis. Distal small loop 2.6 cm which is fecal filled. There is cirrhosis and underlying portal venous hypertension. Abdominal ultrasound showing gallstones without evidence for acute cholecystitis although not entirely excluded. Liver enzymes are within normal limits on presentation, white count 6.7, hgb stable 11.3. She is afebrile, heart rate 82, blood pressure 102/68, 98% room air. General surgery has been consulted for further evaluation for now patient is placed NPO. 07/05/2022 Patient evaluated sitting up with family at bedside. Reports continued right lower quadrant abdominal pain. Worse after eating full liquid lunch. She had repeat abdominal pelvis CT last night showing mild small bowel mesenteric fat stranding right lower quadrant which appears new possibly relating to nonspecific inflammatory process. Appendix appears normal. There are likely multiple gall stones the bile ducts are not dilated. The gallbladder is enlarged. Liver cirrhosis. No evidence for bowel obstruction. Remains afebrile, on room air. 07/06/2022 Patient evaluated today ambulating in room. Continues with right lower quadrant abdominal pain. She states pain had improved in the afternoon yesterday, and reports tolerating some liquid diet. Has not had a BM since admission. General surgery following. Afebrile, heart rate 79, blood pressure 100/68, 98% room air. 07/07/2022 Patient evaluated today sitting up in chair. She is tearful and frustrated today about abdominal pain and not being able to tolerate much diet but feeling hungry. She was advanced to regular diet for lunch and did not tolerate well. General surgery continuing to monitor. Labs repeated today and liver enzymes continue to be within normal limits. She is afebrile, heart rate 80, blood pressure 124/83, 99% room air. 07/08/2022 Patient continues with persistent right sided abdominal pain worse with eating and states that she does feel bloated after eating. Has not had BM since admission. She will be monitored over the weekend and is scheduled to undergo cholecystectomy on Monday with Dr. Garcia. She remains afebrile. Review of Systems Constitutional: Denied any fatigue denied any fever. Cardio vascular: denied any chest pain, palpitations Gastrointestinal: denied any nausea, vomiting, diarrhea reports abdominal pain and bloating. Pulmonary: Denied any shortness of breath cough Neurologic denied any new focal deficits All inpatient medications were reviewed and appropriate changes in these medications as dictated in the interval history and assessment and plan. PHYSICAL EXAMINATION: GENERAL: The patient is alert and oriented x3, not in any acute distress. Well developed, well nourished. HEENT: Pupils are round and equally reacting to light. EOMI. No scleral icterus. No conjunctival pallor. Normocephalic, atraumatic. No pharyngeal erythema. No thyromegaly. CARDIOVASCULAR: S1 and S2 present. No murmurs, rubs, or gallops. PULMONARY: Chest is clear to auscultation, no wheezing or crackles. ABDOMEN: Soft, tender Right lower quad, nondistended, normoactive bowel sounds. No palpable organomegaly. MUSCULOSKELETAL: No joint swelling or deformity. EXTREMITIES: No cyanosis, clubbing, or pedal edema. NEUROLOGICAL: Gross neurological examination did not reveal any focal deficits. SKIN: No rashes. Assessment and plan Assessment Acute right lower quadrant abdominal pain possibly from adhesions Partial small bowel obstruction from internal hernias appears resolved, no convincing evidence for bowel obstruction found on repeat imaging. Cholelisthiasis with chronic choleycystitis History alcoholic liver cirrhosis History chronic alcohol abuse currently not drinking Daily nicotine use Daily marijuana use GI prophylaxis DVT prophylaxis Full Code Plan Unable to tolerate advanced diet will continue on full liquid diet over the weekend Continue all other supportive care Scheduled to undergo laproscopic cholecystectomy with Dr. Garcia on Monday The impression and plan of care has been dictated by Annmarie Bellamy, Nurse Practitioner as directed. Dr. Fred MD I have performed a history and physical examination and medical decision making of this patient, discussed the same with the dictator, and agree with the dictators assessment and plan as written, documented as a scribe. Based on total visit time, I have performed more than 50% of this visit. Objective - Vital Signs Vital signs: Vital Signs Temp 98.0 F 07/08/22 14:38 Pulse 70 07/08/22 14:38 Resp 16 07/08/22 14:38 BP 115/76 07/08/22 14:38 Pulse Ox 100 07/08/22 14:38 FiO2 Intake & Output 07/07/22 07/08/22 07/08/22 18:59 06:59 18:59 Other: Voiding Method Toilet # Voids 3 2 - Labs CBC & Chem 7: 07/07/22 07:27 07/07/22 07:27 Assessment and Plan Time with Patient: Less than 30
[2022-07-08] MEDS: DOCUSATE 100 MG CAP PO SCH (17:18)
[2022-07-09] MEDS: PANTOPRAZOLE 40 MG TABLET PO SCH ×2 (05:19→17:31)
[2022-07-09] MEDS: HYDROmorphone 0.5 MG/0.5 ML SYRINGE IVP PRN ×5 (05:19→21:54)
[2022-07-09] MEDS: DOCUSATE 100 MG CAP PO SCH (08:53)
--- NOTE | 2022-07-09 10:56 | P.PN ---
Progress Note - Text Progress Note Date: 07/09/22 Patient Kailey stable. She still has complaints of mild right upper quadrant pain. On exam vessels are still. Endo-Sock. Patient be scheduled for laparoscopically cholecystectomy on Monday. She will have her diet advanced to regular low-fat diet.
[2022-07-09] MEDS: FOLIC ACID 1 MG TAB PO SCH (11:08)
[2022-07-09] MEDS: THIAMINE 100 MG TAB PO SCH (11:08)
--- NOTE | 2022-07-09 13:39 | P.PN ---
Subjective Progress Note Date: 07/09/22 This is a 52 year old female who follows with Dr. Christensen, medical history of Liver cirrhosis with esophageal varices, gastric bypass, tummy tuck, tubal ligation. Patient is a daily smoker reports 4 to 5 cigarettes per day, marijuana use daily. Prior history of alcohol abuse, currently not drinking and has been taken off the liver transplant list at this time. Presents to the hospital with complaints of right sided abdominal pain right lower quadrant that has been on going since last Monday. She was hospitalized in May and evaluated for chronic cholecystitis and enteritis, and was recommended to follow up with surgery outpatient to discuss gallbladder removal, but she has not done so as of yet. Denies fever, chills, nausea or vomiting. Reports having bowel movement, her last one was yesterday, which was soft and brown. Denies diarrhea, melena, or bloody stool. Has increased abdominal bloating. CT abdomen pelvis completed showing possible partial small bowel obstruction from internal hernia and also local mass effect in the right pelvis. Distal small loop 2.6 cm which is fecal filled. There is cirrhosis and underlying portal venous hypertension. Abdominal ultrasound showing gallstones without evidence for acute cholecystitis although not entirely excluded. Liver enzymes are within normal limits on presentation, white count 6.7, hgb stable 11.3. She is afebrile, heart rate 82, blood pressure 102/68, 98% room air. General surgery has been consulted for further evaluation for now patient is placed NPO. 07/05/2022 Patient evaluated sitting up with family at bedside. Reports continued right lower quadrant abdominal pain. Worse after eating full liquid lunch. She had repeat abdominal pelvis CT last night showing mild small bowel mesenteric fat stranding right lower quadrant which appears new possibly relating to nonspecific inflammatory process. Appendix appears normal. There are likely multiple gall stones the bile ducts are not dilated. The gallbladder is enlarged. Liver cirrhosis. No evidence for bowel obstruction. Remains afebrile, on room air. 07/06/2022 Patient evaluated today ambulating in room. Continues with right lower quadrant abdominal pain. She states pain had improved in the afternoon yesterday, and reports tolerating some liquid diet. Has not had a BM since admission. General surgery following. Afebrile, heart rate 79, blood pressure 100/68, 98% room air. 07/07/2022 Patient evaluated today sitting up in chair. She is tearful and frustrated today about abdominal pain and not being able to tolerate much diet but feeling hungry. She was advanced to regular diet for lunch and did not tolerate well. General surgery continuing to monitor. Labs repeated today and liver enzymes continue to be within normal limits. She is afebrile, heart rate 80, blood pressure 124/83, 99% room air. 07/08/2022 Patient continues with persistent right sided abdominal pain worse with eating and states that she does feel bloated after eating. Has not had BM since admission. She will be monitored over the weekend and is scheduled to undergo cholecystectomy on Monday with Dr. Garcia. She remains afebrile. 07/09/2022 Patient is evaluated today on medical floor she continues with right upper and lower quad abdominal pain. Tolerating some diet. Feels hungry. No shortness of breath, no chest pain. Vitals stable. Cholecystectomy monday, surgery following. Review of Systems Constitutional: Denied any fatigue denied any fever. Cardio vascular: denied any chest pain, palpitations Gastrointestinal: denied any nausea, vomiting, diarrhea reports abdominal pain and bloating. Pulmonary: Denied any shortness of breath cough Neurologic denied any new focal deficits All inpatient medications were reviewed and appropriate changes in these medications as dictated in the interval history and assessment and plan. PHYSICAL EXAMINATION: GENERAL: The patient is alert and oriented x3, not in any acute distress. Well developed, well nourished. HEENT: Pupils are round and equally reacting to light. EOMI. No scleral icterus. No conjunctival pallor. Normocephalic, atraumatic. No pharyngeal erythema. No thyromegaly. CARDIOVASCULAR: S1 and S2 present. No murmurs, rubs, or gallops. PULMONARY: Chest is clear to auscultation, no wheezing or crackles. ABDOMEN: Soft, tender Right lower quad, nondistended, normoactive bowel sounds. No palpable organomegaly. MUSCULOSKELETAL: No joint swelling or deformity. EXTREMITIES: No cyanosis, clubbing, or pedal edema. NEUROLOGICAL: Gross neurological examination did not reveal any focal deficits. SKIN: No rashes. Assessment and plan Assessment Acute right lower quadrant abdominal pain possibly from adhesions Partial small bowel obstruction from internal hernias appears resolved, no convincing evidence for bowel obstruction found on repeat imaging. Cholelisthiasis with chronic choleycystitis History alcoholic liver cirrhosis History chronic alcohol abuse currently not drinking Daily nicotine use Daily marijuana use GI prophylaxis DVT prophylaxis Full Code Plan Unable to tolerate advanced diet will continue on full liquid diet over the weekend Continue all other supportive care Scheduled to undergo laproscopic cholecystectomy with Dr. Garcia on Monday The impression and plan of care has been dictated by Annmarie Bellamy, Nurse Practitioner as directed. Dr. Fred MD I have performed a history and physical examination and medical decision making of this patient, discussed the same with the dictator, and agree with the dictators assessment and plan as written, documented as a scribe. Based on total visit time, I have performed more than 50% of this visit. Objective - Vital Signs Vital signs: Vital Signs Temp 97.5 F L 07/09/22 07:51 Pulse 68 07/09/22 07:51 Resp 18 07/09/22 07:51 BP 110/74 07/09/22 07:51 Pulse Ox 100 07/09/22 07:51 FiO2 Intake & Output 07/08/22 07/09/22 07/09/22 18:59 06:59 18:59 Intake Total 300 Balance 300 Intake: Oral 300 Other: # Voids 2 - Labs CBC & Chem 7: 07/07/22 07:27 07/07/22 07:27 Assessment and Plan Time with Patient: Less than 30
[2022-07-09] MEDS: DICYCLOMINE 10 MG CAP PO PRN ×2 (13:41→17:33)
[2022-07-10] MEDS: HYDROmorphone 0.5 MG/0.5 ML SYRINGE IVP PRN ×3 (01:50→20:10)
[2022-07-10] MEDS: PANTOPRAZOLE 40 MG TABLET PO SCH ×2 (05:28→12:47)
[2022-07-10] MEDS: DICYCLOMINE 10 MG CAP PO PRN ×3 (08:05→20:10)
[2022-07-10] MEDS: DOCUSATE 100 MG CAP PO SCH (08:05)
--- NOTE | 2022-07-10 11:43 | P.PN ---
Progress Note - Text Progress Note Date: 07/10/22 Patient remain stable. She has chronic right upper quadrant pain. On exam vital signs are stable. Abdomen soft. There is mild tenderness right quadrant. Chronically status per patient undergo laparoscopically cholecystectomy in a.m. Patient's aware the risks of conversion to the open procedure due to her previous midline scar.
[2022-07-10] MEDS: FOLIC ACID 1 MG TAB PO SCH (12:47)
[2022-07-10] MEDS: THIAMINE 100 MG TAB PO SCH (12:47)
--- NOTE | 2022-07-10 14:22 | P.PN ---
Subjective Progress Note Date: 07/10/22 This is a 52 year old female who follows with Dr. Christensen, medical history of Liver cirrhosis with esophageal varices, gastric bypass, tummy tuck, tubal ligation. Patient is a daily smoker reports 4 to 5 cigarettes per day, marijuana use daily. Prior history of alcohol abuse, currently not drinking and has been taken off the liver transplant list at this time. Presents to the hospital with complaints of right sided abdominal pain right lower quadrant that has been on going since last Monday. She was hospitalized in May and evaluated for chronic cholecystitis and enteritis, and was recommended to follow up with surgery outpatient to discuss gallbladder removal, but she has not done so as of yet. Denies fever, chills, nausea or vomiting. Reports having bowel movement, her last one was yesterday, which was soft and brown. Denies diarrhea, melena, or bloody stool. Has increased abdominal bloating. CT abdomen pelvis completed showing possible partial small bowel obstruction from internal hernia and also local mass effect in the right pelvis. Distal small loop 2.6 cm which is fecal filled. There is cirrhosis and underlying portal venous hypertension. Abdominal ultrasound showing gallstones without evidence for acute cholecystitis although not entirely excluded. Liver enzymes are within normal limits on presentation, white count 6.7, hgb stable 11.3. She is afebrile, heart rate 82, blood pressure 102/68, 98% room air. General surgery has been consulted for further evaluation for now patient is placed NPO. 07/05/2022 Patient evaluated sitting up with family at bedside. Reports continued right lower quadrant abdominal pain. Worse after eating full liquid lunch. She had repeat abdominal pelvis CT last night showing mild small bowel mesenteric fat stranding right lower quadrant which appears new possibly relating to nonspecific inflammatory process. Appendix appears normal. There are likely multiple gall stones the bile ducts are not dilated. The gallbladder is enlarged. Liver cirrhosis. No evidence for bowel obstruction. Remains afebrile, on room air. 07/06/2022 Patient evaluated today ambulating in room. Continues with right lower quadrant abdominal pain. She states pain had improved in the afternoon yesterday, and reports tolerating some liquid diet. Has not had a BM since admission. General surgery following. Afebrile, heart rate 79, blood pressure 100/68, 98% room air. 07/07/2022 Patient evaluated today sitting up in chair. She is tearful and frustrated today about abdominal pain and not being able to tolerate much diet but feeling hungry. She was advanced to regular diet for lunch and did not tolerate well. General surgery continuing to monitor. Labs repeated today and liver enzymes continue to be within normal limits. She is afebrile, heart rate 80, blood pressure 124/83, 99% room air. 07/08/2022 Patient continues with persistent right sided abdominal pain worse with eating and states that she does feel bloated after eating. Has not had BM since admission. She will be monitored over the weekend and is scheduled to undergo cholecystectomy on Monday with Dr. Garcia. She remains afebrile. 07/09/2022 Patient is evaluated today on medical floor she continues with right upper and lower quad abdominal pain. Tolerating some diet. Feels hungry. No shortness of breath, no chest pain. Vitals stable. Cholecystectomy monday, surgery following. 07/10/2022 Patient continues to report right upper quadrant abdominal discomfort and tenderness on examination additionally she feels bloated after oral intake. She is having normal bowel movements. Tolerating some diet. She remains afebrile, heart rate 104, blood pressure 116/67, 100% room air. Review of Systems Constitutional: Denied any fatigue denied any fever. Cardio vascular: denied any chest pain, palpitations Gastrointestinal: denied any nausea, vomiting, diarrhea reports abdominal pain and bloating. Pulmonary: Denied any shortness of breath cough Neurologic denied any new focal deficits All inpatient medications were reviewed and appropriate changes in these medications as dictated in the interval history and assessment and plan. PHYSICAL EXAMINATION: GENERAL: The patient is alert and oriented x3, not in any acute distress. Well developed, well nourished. HEENT: Pupils are round and equally reacting to light. EOMI. No scleral icterus. No conjunctival pallor. Normocephalic, atraumatic. No pharyngeal erythema. No thyromegaly. CARDIOVASCULAR: S1 and S2 present. No murmurs, rubs, or gallops. PULMONARY: Chest is clear to auscultation, no wheezing or crackles. ABDOMEN: Soft, tender Right upper quad, nondistended, normoactive bowel sounds. No palpable organomegaly. MUSCULOSKELETAL: No joint swelling or deformity. EXTREMITIES: No cyanosis, clubbing, or pedal edema. NEUROLOGICAL: Gross neurological examination did not reveal any focal deficits. SKIN: No rashes. Assessment and plan Assessment Acute right upper quadrant abdominal pain possibly from adhesions Partial small bowel obstruction from internal hernias appears resolved, no convincing evidence for bowel obstruction found on repeat imaging. She is having normal bowel movements. Cholelisthiasis with chronic choleycystitis History alcoholic liver cirrhosis History chronic alcohol abuse currently not drinking Daily nicotine use Daily marijuana use GI prophylaxis DVT prophylaxis Full Code Plan Patient continues with diet as tolerated and will be NPO after midnight for laproscopic cholecystectomy on monday Continue all other supportive care The impression and plan of care has been dictated by Annmarie Bellamy Nurse Practitioner as directed. Dr. Fred MD I have performed a history and physical examination and medical decision making of this patient, discussed the same with the dictator, and agree with the dictators assessment and plan as written, documented as a scribe. Based on total visit time, I have performed more than 50% of this visit. Objective - Vital Signs Vital signs: Vital Signs Temp 98.6 F 07/10/22 07:10 Pulse 104 H 07/10/22 07:10 Resp 18 07/10/22 07:10 BP 116/67 07/10/22 07:10 Pulse Ox 100 07/10/22 07:10 FiO2 Intake & Output 07/09/22 07/10/22 07/10/22 18:59 06:59 18:59 Other: Voiding Method Toilet # Voids 4 4 - Labs CBC & Chem 7: 07/07/22 07:27 07/07/22 07:27 Assessment and Plan Time with Patient: Less than 30
[2022-07-11] MEDS: HYDROmorphone 0.5 MG/0.5 ML SYRINGE IVP PRN ×3 (02:27→10:55)
[2022-07-11] MEDS: DICYCLOMINE 10 MG CAP PO PRN ×2 (06:35→17:34)
[2022-07-11] MEDS: PANTOPRAZOLE 40 MG TABLET PO SCH ×2 (06:35→17:28)
[2022-07-11] MEDS: DOCUSATE 100 MG CAP PO SCH (08:25)
[2022-07-11] MEDS ORDERED: LACTATED RINGERS 1,000 ML IV ONE (08:30)
[2022-07-11] MEDS ORDERED: ONDANSETRON 4 MG/2 ML VIAL IVP ONE (08:57)
[2022-07-11] MEDS ORDERED: DEXAMETHASONE SOD PHOSPHATE 4 MG/ML 1 ML VIAL IVP ONE (08:58)
[2022-07-11] MEDS ORDERED: HEPARIN SODIUM,PORCINE/PF 5,000 UNIT/0.5 ML SYRINGE SQ ONE (09:11)
[2022-07-11] MEDS ORDERED: HEPARIN SODIUM,PORCINE 5,000 UNIT/ML 1 ML VIAL SQ ONE (09:15)
[2022-07-11] MEDS ORDERED: fentaNYL (PF) 50 MCG/ML 2 ML AMP ONE (09:27)
[2022-07-11] MEDS ORDERED: LIDOCAINE 2% INJ 20 MG/ML (2 ML VIAL) ONE (09:27)
[2022-07-11] MEDS ORDERED: GLYCOPYRROLATE 0.2 MG/ML 2 ML VIAL ONE (09:27)
[2022-07-11] MEDS ORDERED: PROPOFOL 10 MG/ML 20 ML VIAL IV ONE (09:27)
[2022-07-11] MEDS ORDERED: PHENYLEPHRINE-0.9% NACL SYG 1,000 MCG/10 ML SYRINGE ONE (09:27)
[2022-07-11] MEDS ORDERED: MIDAZOLAM 2 MG/2 ML VIAL ONE (09:27)
[2022-07-11] MEDS ORDERED: NEOSTIGMINE 1 MG/ML 10 ML VIAL ONE (09:27)
[2022-07-11] MEDS ORDERED: SUCCINYLCHOLINE CHLORIDE 200 MG/10 ML VIAL IV ONE (09:27)
[2022-07-11] MEDS ORDERED: ROCURONIUM 10 MG/ML (5 ML VIAL) IV ONE (09:27)
[2022-07-11] MEDS ORDERED: BUPIVACAIN-EPI 0.25%-1:200,000 30 ML VIAL SQ ONE ×2 (09:56)
--- NOTE | 2022-07-11 10:45 | P.OP ---
Date of Procedure: 07/11/22 Preoperative Diagnosis: Cholecystitis Postoperative Diagnosis: Cholecystitis Cholelithiasis Procedure(s) Performed: Laparoscopic cholecystectomy Laparoscopic lysis of extensive adhesions Anesthesia: SUSAN Surgeon: Blaise Garcia Estimated Blood Loss (ml): 5 Pathology: other (Gallbladder) Condition: stable Disposition: PACU Description of Procedure: The patient's placed on the operative table in the supine position. She received general endotracheal anesthesia. The patient was prepped and draped usual sterile fashion. Patient had a large long midline scar related to previous gastric bypass and subsequent incisional hernia and panniculectomy. Due to this large scar in midline. The Veress needles placed in the left upper quadrant. Position of the Veress needle was confirmed with positive drop test. The abdomen insufflated. After adequate insufflation the 5 mm optical trocar was placed in the left lateral position under direct vision. The Was entered. And there were extensive adhesions seen throughout the peritoneal cavity. A 5 mm trocar was able to be visualized and placed under direct vision in the right lateral position. And then using Harmonic scissors extensive adhesions were lysed. Approximately 20 minutes of operative time used to lyse adhesions. Following this a 5 mm trochars placed in the infraumbilical position and then a another 5 mm trochars placed in the right epigastric position and then a 10 mm trochars placed in the epigastric position. The gallbladder was visualized. There were adhesions to the gallbladder. The liver was very cirrhotic enlarged and firm. The adhesions to the gallbladder were lysed using the Harmonic scissors and then the gallbladder was retracted. Due to the bulky liver it was difficult to retract the gallbladder. The gallbladder was retracted cephalad and lateral. And then the infundibulum the g allbladder is visualized. The cystic duct was visualized. The cystic duct was then ligated with a 2-0 Ethibond suture the timeout device. And then using the Harmonic scissors the gallbladder was transected and then the cystic artery was divided using Harmonic's is. The gallbladder was removed liver bed using the Harmonic scissors and electrocautery. The gallbladder was then placed in a 10 mm Endo Catch and brought out through the epigastric port site. The gallbladder bed was cyst. Several small bleeding spots were coagulated. The abdomen was irrigated there is no bleeding seen. And once again the liver was very cirrhotic. Care was taken to ensure that the liver bed was dry. At this point the abdomen was desufflated the trochars withdrawn. The skin incision sites were closed with 3-0 Monocryl suture. Dermatitis dressing was applied. Patient top she will was sent to recovery room in stable condition.
[2022-07-11] MEDS: HYDROcodone/APAP 7.5-325MG 1 EACH TAB PO PRN ×2 (12:03→17:31)
[2022-07-11] MEDS: THIAMINE 100 MG TAB PO SCH (14:19)
[2022-07-11] MEDS: FOLIC ACID 1 MG TAB PO SCH (14:19)
[2022-07-11] MEDS: HYDROmorphone 1 MG/ML 1 ML SYRINGE IVP PRN ×3 (14:23→22:58)
[2022-07-11] MEDS: SODIUM CHLORIDE 0.9% 1,000 ML IV SCH ×2 (14:25→23:02)
[2022-07-11 14:52] VITALS: BMI 26.6
--- NOTE | 2022-07-11 14:55 | P.PN ---
Subjective Progress Note Date: 07/11/22 This is a 52 year old female who follows with Dr. Christensen, medical history of Liver cirrhosis with esophageal varices, gastric bypass, tummy tuck, tubal ligation. Patient is a daily smoker reports 4 to 5 cigarettes per day, marijuana use daily. Prior history of alcohol abuse, currently not drinking and has been taken off the liver transplant list at this time. Presents to the hospital with complaints of right sided abdominal pain right lower quadrant that has been on going since last Monday. She was hospitalized in May and evaluated for chronic cholecystitis and enteritis, and was recommended to follow up with surgery outpatient to discuss gallbladder removal, but she has not done so as of yet. Denies fever, chills, nausea or vomiting. Reports having bowel movement, her last one was yesterday, which was soft and brown. Denies diarrhea, melena, or bloody stool. Has increased abdominal bloating. CT abdomen pelvis completed showing possible partial small bowel obstruction from internal hernia and also local mass effect in the right pelvis. Distal small loop 2.6 cm which is fecal filled. There is cirrhosis and underlying portal venous hypertension. Abdominal ultrasound showing gallstones without evidence for acute cholecystitis although not entirely excluded. Liver enzymes are within normal limits on presentation, white count 6.7, hgb stable 11.3. She is afebrile, heart rate 82, blood pressure 102/68, 98% room air. General surgery has been consulted for further evaluation for now patient is placed NPO. 07/05/2022 Patient evaluated sitting up with family at bedside. Reports continued right lower quadrant abdominal pain. Worse after eating full liquid lunch. She had repeat abdominal pelvis CT last night showing mild small bowel mesenteric fat stranding right lower quadrant which appears new possibly relating to nonspecific inflammatory process. Appendix appears normal. There are likely multiple gall stones the bile ducts are not dilated. The gallbladder is enlarged. Liver cirrhosis. No evidence for bowel obstruction. Remains afebrile, on room air. 07/06/2022 Patient evaluated today ambulating in room. Continues with right lower quadrant abdominal pain. She states pain had improved in the afternoon yesterday, and reports tolerating some liquid diet. Has not had a BM since admission. General surgery following. Afebrile, heart rate 79, blood pressure 100/68, 98% room air. 07/07/2022 Patient evaluated today sitting up in chair. She is tearful and frustrated today about abdominal pain and not being able to tolerate much diet but feeling hungry. She was advanced to regular diet for lunch and did not tolerate well. General surgery continuing to monitor. Labs repeated today and liver enzymes continue to be within normal limits. She is afebrile, heart rate 80, blood pressure 124/83, 99% room air. 07/08/2022 Patient continues with persistent right sided abdominal pain worse with eating and states that she does feel bloated after eating. Has not had BM since admission. She will be monitored over the weekend and is scheduled to undergo cholecystectomy on Monday with Dr. Garcia. She remains afebrile. 07/09/2022 Patient is evaluated today on medical floor she continues with right upper and lower quad abdominal pain. Tolerating some diet. Feels hungry. No shortness of breath, no chest pain. Vitals stable. Cholecystectomy monday, surgery following. 07/10/2022 Patient continues to report right upper quadrant abdominal discomfort and tenderness on examination additionally she feels bloated after oral intake. She is having normal bowel movements. Tolerating some diet. She remains afebrile, heart rate 104, blood pressure 116/67, 100% room air. 07/11/2022 Patient is evaluated today postoperative laproscopic cholecystecomy and lysis of adhesions which surgical reports reveal extensive adhesions and also extensively cirrhotic liver. The gallbladder is sent for pathology. She is monitored on the medical floor and will be placed on IV fluids. Incentive spirometer is ordered. Review of Systems Constitutional: Denied any fatigue denied any fever. Cardio vascular: denied any chest pain, palpitations Gastrointestinal: denied any nausea, vomiting, diarrhea reports abdominal pain and bloating. Pulmonary: Denied any shortness of breath cough Neurologic denied any new focal deficits All inpatient medications were reviewed and appropriate changes in these medications as dictated in the interval history and assessment and plan. PHYSICAL EXAMINATION: GENERAL: The patient is alert and oriented x3, not in any acute distress. Well developed, well nourished. HEENT: Pupils are round and equally reacting to light. EOMI. No scleral icterus. No conjunctival pallor. Normocephalic, atraumatic. No pharyngeal erythema. No thyromegaly. CARDIOVASCULAR: S1 and S2 present. No murmurs, rubs, or gallops. PULMONARY: Chest is clear to auscultation, no wheezing or crackles. ABDOMEN: Soft, tender Right upper quad, nondistended, normoactive bowel sounds. No palpable organomegaly. MUSCULOSKELETAL: No joint swelling or deformity. EXTREMITIES: No cyanosis, clubbing, or pedal edema. NEUROLOGICAL: Gross neurological examination did not reveal any focal deficits. SKIN: No rashes. Assessment and plan Assessment Acute right upper quadrant abdominal pain possibly from adhesions she is postop day 0 lysis of adhesions and laprosocopic cholecystectomy Partial small bowel obstruction from internal hernias appears resolved, no convincing evidence for bowel obstruction found on repeat imaging. She is having normal bowel movements. Cholelisthiasis with chronic choleycystitis History alcoholic liver cirrhosis History chronic alcohol abuse currently not drinking Daily nicotine use Daily marijuana use GI prophylaxis DVT prophylaxis Full Code Plan Patient will be started on IV hydration and pain management. Diet per surgery. Continue all other supportive care The impression and plan of care has been dictated by Annmarie Bellamy Nurse Practitioner as directed. Dr. Fred MD I have performed a history and physical examination and medical decision making of this patient, discussed the same with the dictator, and agree with the dictators assessment and plan as written, documented as a scribe. Based on total visit time, I have performed more than 50% of this visit. Objective - Vital Signs Vital signs: Vital Signs Temp 97.7 F 07/11/22 08:30 Pulse 78 07/11/22 08:30 Resp 16 07/11/22 08:30 BP 135/75 07/11/22 08:30 Pulse Ox 100 07/11/22 08:30 FiO2 Intake & Output 07/10/22 07/11/22 07/11/22 18:59 06:59 18:59 Intake Total 100 Balance 100 Intake: IV 100 Other: Voiding Method Toilet # Voids 4 3 - Labs CBC & Chem 7: 07/07/22 07:27 07/07/22 07:27 Assessment and Plan Time with Patient: Less than 30
[2022-07-12] MEDS: HYDROcodone/APAP 7.5-325MG 1 EACH TAB PO PRN ×2 (04:22→12:37)
[2022-07-12] MEDS: PANTOPRAZOLE 40 MG TABLET PO SCH ×2 (05:53→17:31)
[2022-07-12 08:14] LABS: Anisocytosis Slight; Basophils % (A) 0 %; Eosinophils % (A) 0 %; HCT 33.1 % (34.0-46.0); HGB 10.3 gm/dL (11.4-16.0); Lymphocytes # (A) 0.9 k/uL (1.0-4.8); Lymphocytes % (A) 12 %; MCHC 31.2 g/dL (31.0-37.0); MCV 80.1 fL (80.0-100.0); Mean Platelet Volume 9.4; Monocytes # (A) 0.2 k/uL (0-1.0); Monocytes % (A) 3 %; Neutrophils % (A) 82 %; Platelet Count 170 k/uL (150-450); RBC 4.13 m/uL (3.80-5.40); RDW 16.2 % (11.5-15.5); WBC 7.2 k/uL (3.8-10.6)
[2022-07-12 08:22] LABS: ALT 46 U/L (4-34); AST 63 U/L (14-36); African American GFR (CKD) >90 (>60 ml/min/1.73 sqM); Albumin 3.2 g/dL (3.5-5.0); Albumin/Globulin Ratio 0.9; Alkaline Phosphatase 78 U/L (38-126); Anion Gap 5 mmol/L; Blood Urea Nitrogen 12 mg/dL (7-17); Calcium 8.7 mg/dL (8.4-10.2); Carbon Dioxide 23 mmol/L (22-30); Chloride 106 mmol/L (98-107); Globulin 3.4 g/dL; Glucose 176 mg/dL (74-99); Non-African American GFR(CKD) >90 (>60 ml/min/1.73 sqM); Potassium 4.4 mmol/L (3.5-5.1); Sodium 134 mmol/L (137-145); Total Bilirubin 0.7 mg/dL (0.2-1.3); Total Protein 6.6 g/dL (6.3-8.2)
[2022-07-12] MEDS: ENOXAPARIN 40 MG/0.4 ML SYRINGE SQ SCH (09:03)
[2022-07-12] MEDS: LACTATED RINGERS 1,000 ML IV SCH ×10 (09:03→20:01)
[2022-07-12] MEDS: DOCUSATE 100 MG CAP PO SCH (09:03)
[2022-07-12] MEDS: HYDROmorphone 1 MG/ML 1 ML SYRINGE IVP PRN ×3 (09:03→22:41)
[2022-07-12] MEDS: SODIUM CHLORIDE 0.9% 1,000 ML IV SCH ×2 (11:37→17:31)
[2022-07-12] MEDS: FOLIC ACID 1 MG TAB PO SCH (12:34)
[2022-07-12] MEDS: THIAMINE 100 MG TAB PO SCH (12:34)
--- NOTE | 2022-07-12 16:10 | P.PN ---
Subjective Progress Note Date: 07/12/22 CHIEF COMPLAINT: Abdominal pain HISTORY OF PRESENT ILLNESS: Patient is postop day #1 status post laparoscopic cholecystectomy and lysis of adhesions. She does report that her pain is different than on admission. And that her pain is controlled. She denies any nausea or vomiting. She is having flatus. She did have a low-grade temp of 100.9 last night and he is tachycardic. She's currently on a low-fat diet. Afebrile currently and white count is 7.2. Patient did receive 1 L fluid bolus due to tachycardia. Patient seen and examined with Dr. olea PHYSICAL EXAM: VITAL SIGNS: Reviewed. GENERAL: Well-developed in no acute distress. HEENT: No sclera icterus. Extraocular movements grossly intact. Moist buccal mucosa. Head is atraumatic, normocephalic. ABDOMEN: Soft. Nondistended. Incision sites clean dry and intact NEUROLOGIC: Alert and oriented. Cranial nerves II through XII grossly intact. ASSESSMENT: 1. Chronic cholecystitis and cholelithiasis with adhesions status post laparoscopic cholecystectomy and extensive lysis of adhesions 3. History of alcoholic liver cirrhosis 4. Recent hospitalization with enteritis and chronic cholecystitis 5. History of gastric bypass and panniculectomy 6. Low-grade fever likely due to atelectasis PLAN: -Continue low-fat diet -Continue supportive care -Encouraged patient to use incentive spirometer -Patient scheduled for laparoscopic cholecystectomy on Monday with Dr. olea -Continue IV fluids -Encouraged patient to ambulate -DVT prophylaxis Lovenox and GI prophylaxis Protonix Physician Team Physician note has been reviewed by physician. Signing provider agrees with the documented findings, assessment, and plan of care. Objective - Vital Signs Vital signs: Vital Signs Temp 98.6 F 07/12/22 13:45 Pulse 120 H 07/12/22 13:45 Resp 16 07/12/22 13:45 BP 108/72 07/12/22 13:45 Pulse Ox 98 07/12/22 13:45 FiO2 Intake & Output 07/11/22 07/12/22 07/12/22 18:59 06:59 18:59 Intake Total 1350 Output Total 307 950 300 Balance 1043 -950 -300 Weight 74.843 kg Intake: IV 1350 Sodium Chloride 0.9% 1, 400 000 ml @ 100 mls/hr IV . Q10H ROMMEL Rx#:[id number] Output: Urine 300 950 300 Estimated Blood Loss 7 Other: Voiding Method Toilet # Voids 4 - Labs CBC & Chem 7: 07/12/22 07:57 07/12/22 07:57 Labs: Abnormal Lab Results - Last 24 Hours (Table) 07/12/22 07/12/22 Range/Units 07:57 07:57 Hgb 10.3 L (11.4-16.0) gm/dL Hct 33.1 L (34.0-46.0) % RDW 16.2 H (11.5-15.5) % Lymphocytes # 0.9 L (1.0-4.8) k/uL Sodium 134 L (137-145) mmol/L Glucose 176 H (74-99) mg/dL AST 63 H (14-36) U/L ALT 46 H (4-34) U/L Albumin 3.2 L (3.5-5.0) g/dL
--- NOTE | 2022-07-12 16:39 | P.PN ---
Subjective Progress Note Date: 07/12/22 This is a 52 year old female who follows with Dr. Christensen, medical history of Liver cirrhosis with esophageal varices, gastric bypass, tummy tuck, tubal ligation. Patient is a daily smoker reports 4 to 5 cigarettes per day, marijuana use daily. Prior history of alcohol abuse, currently not drinking and has been taken off the liver transplant list at this time. Presents to the hospital with complaints of right sided abdominal pain right lower quadrant that has been on going since last Monday. She was hospitalized in May and evaluated for chronic cholecystitis and enteritis, and was recommended to follow up with surgery outpatient to discuss gallbladder removal, but she has not done so as of yet. Denies fever, chills, nausea or vomiting. Reports having bowel movement, her last one was yesterday, which was soft and brown. Denies diarrhea, melena, or bloody stool. Has increased abdominal bloating. CT abdomen pelvis completed showing possible partial small bowel obstruction from internal hernia and also local mass effect in the right pelvis. Distal small loop 2.6 cm which is fecal filled. There is cirrhosis and underlying portal venous hypertension. Abdominal ultrasound showing gallstones without evidence for acute cholecystitis although not entirely excluded. Liver enzymes are within normal limits on presentation, white count 6.7, hgb stable 11.3. She is afebrile, heart rate 82, blood pressure 102/68, 98% room air. General surgery has been consulted for further evaluation for now patient is placed NPO. 07/05/2022 Patient evaluated sitting up with family at bedside. Reports continued right lower quadrant abdominal pain. Worse after eating full liquid lunch. She had repeat abdominal pelvis CT last night showing mild small bowel mesenteric fat stranding right lower quadrant which appears new possibly relating to nonspecific inflammatory process. Appendix appears normal. There are likely multiple gall stones the bile ducts are not dilated. The gallbladder is enlarged. Liver cirrhosis. No evidence for bowel obstruction. Remains afebrile, on room air. 07/06/2022 Patient evaluated today ambulating in room. Continues with right lower quadrant abdominal pain. She states pain had improved in the afternoon yesterday, and reports tolerating some liquid diet. Has not had a BM since admission. General surgery following. Afebrile, heart rate 79, blood pressure 100/68, 98% room air. 07/07/2022 Patient evaluated today sitting up in chair. She is tearful and frustrated today about abdominal pain and not being able to tolerate much diet but feeling hungry. She was advanced to regular diet for lunch and did not tolerate well. General surgery continuing to monitor. Labs repeated today and liver enzymes continue to be within normal limits. She is afebrile, heart rate 80, blood pressure 124/83, 99% room air. 07/08/2022 Patient continues with persistent right sided abdominal pain worse with eating and states that she does feel bloated after eating. Has not had BM since admission. She will be monitored over the weekend and is scheduled to undergo cholecystectomy on Monday with Dr. Garcia. She remains afebrile. 07/09/2022 Patient is evaluated today on medical floor she continues with right upper and lower quad abdominal pain. Tolerating some diet. Feels hungry. No shortness of breath, no chest pain. Vitals stable. Cholecystectomy monday, surgery following. 07/10/2022 Patient continues to report right upper quadrant abdominal discomfort and tenderness on examination additionally she feels bloated after oral intake. She is having normal bowel movements. Tolerating some diet. She remains afebrile, heart rate 104, blood pressure 116/67, 100% room air. 07/11/2022 Patient is evaluated today postoperative laproscopic cholecystecomy and lysis of adhesions which surgical reports reveal extensive adhesions and also extensively cirrhotic liver. The gallbladder is sent for pathology. She is monitored on the medical floor and will be placed on IV fluids. Incentive spirometer is ordered. 07/12/2022 Patient is evaluated today resting in bed. Currently rating abdominal pain an 8/10 reports mostly incisional and surgical pain this is different than prior r ight sided abdominal pain. She has been tolerating diet with no nausea or vomiting. Passing gas post surgically. No BM yet. Today her white count is normal at 7.2, hgb stable at 10.3, sodium of 134, potassium of 4.4, BUN 12, creatinine 0.66. She had temperature overnight likely from postoperative a telectasis she has not been deep breathing secondary to pain. She is encouraged to use incentive spirometer. Pain is being managed with oral norco and IV dilaudid. Diet is being advanced. Review of Systems Constitutional: Denied any fatigue denied any fever. Cardio vascular: denied any chest pain, palpitations Gastrointestinal: denied any nausea, vomiting, diarrhea, right sided abdominal pain passing gas no BM. Pulmonary: Denied any shortness of breath cough Neurologic denied any new focal deficits All inpatient medications were reviewed and appropriate changes in these medications as dictated in the interval history and assessment and plan. PHYSICAL EXAMINATION: GENERAL: The patient is alert and oriented x3, not in any acute distress. Well developed, well nourished. HEENT: Pupils are round and equally reacting to light. EOMI. No scleral icterus. No conjunctival pallor. Normocephalic, atraumatic. No pharyngeal erythema. No thyromegaly. CARDIOVASCULAR: S1 and S2 present. No murmurs, rubs, or gallops. PULMONARY: Chest is clear to auscultation, no wheezing or crackles. ABDOMEN: Soft, tender Right upper quad, nondistended, normoactive bowel sounds. No palpable organomegaly. post surgical abdomen laproscopic incisions are clean and dry MUSCULOSKELETAL: No joint swelling or deformity. EXTREMITIES: No cyanosis, clubbing, or pedal edema. NEUROLOGICAL: Gross neurological examination did not reveal any focal deficits. SKIN: No rashes. Assessment and plan Assessment Acute right upper quadrant abdominal pain possibly from adhesions she is postop day 1 lysis of adhesions and laprosocopic cholecystectomy Partial small bowel obstruction from internal hernias appears resolved, no convincing evidence for bowel obstruction found on repeat imaging. Having normal stools. Cholelisthiasis with chronic choleycystitis History alcoholic liver cirrhosis History chronic alcohol abuse currently not drinking Daily nicotine use Daily marijuana use GI prophylaxis DVT prophylaxis Full Code Plan Continue IV fluids and repeat labs tomorrow. Continue with pain management. Diet has been advanced to low fiber. Increase activity level and encourage incentive spirometery use. Possible dc in the next 24 hours. The impression and plan of care has been dictated by Annmarie Bellamy Nurse Practitioner as directed. Dr. Fred MD I have performed a history and physical examination and medical decision making of this patient, discussed the same with the dictator, and agree with the dictators assessment and plan as written, documented as a scribe. Based on total visit time, I have performed more than 50% of this visit. Objective - Vital Signs Vital signs: Vital Signs Temp 98.6 F 07/12/22 13:45 Pulse 120 H 07/12/22 13:45 Resp 16 07/12/22 13:45 BP 108/72 07/12/22 13:45 Pulse Ox 98 07/12/22 13:45 FiO2 Intake & Output 07/11/22 07/12/22 07/12/22 18:59 06:59 18:59 Intake Total 1350 Output Total 307 950 300 Balance 1043 -950 -300 Weight 74.843 kg Intake: IV 1350 Sodium Chloride 0.9% 1, 400 000 ml @ 100 mls/hr IV . Q10H ROMMEL Rx#:[id number] Output: Urine 300 950 300 Estimated Blood Loss 7 Other: Voiding Method Toilet # Voids 4 - Labs CBC & Chem 7: 07/12/22 07:57 07/12/22 07:57 Labs: Abnormal Lab Results - Last 24 Hours (Table) 07/12/22 07/12/22 Range/Units 07:57 07:57 Hgb 10.3 L (11.4-16.0) gm/dL Hct 33.1 L (34.0-46.0) % RDW 16.2 H (11.5-15.5) % Lymphocytes # 0.9 L (1.0-4.8) k/uL Sodium 134 L (137-145) mmol/L Glucose 176 H (74-99) mg/dL AST 63 H (14-36) U/L ALT 46 H (4-34) U/L Albumin 3.2 L (3.5-5.0) g/dL Assessment and Plan Time with Patient: Less than 30
[2022-07-12] MEDS ORDERED: HEPARIN SODIUM,PORCINE/PF 5,000 UNIT/0.5 ML SYRINGE SQ SCH (21:00)
[2022-07-13] MEDS: HYDROmorphone 1 MG/ML 1 ML SYRINGE IVP PRN ×4 (04:00→22:26)
[2022-07-13] MEDS: SODIUM CHLORIDE 0.9% 1,000 ML IV SCH (04:01)
[2022-07-13 05:02] LABS: African American GFR (CKD) >90 (>60 ml/min/1.73 sqM); Anion Gap 6 mmol/L; Blood Urea Nitrogen 9 mg/dL (7-17); Carbon Dioxide 20 mmol/L (22-30); Chloride 108 mmol/L (98-107); Glucose 152 mg/dL (74-99); Non-African American GFR(CKD) >90 (>60 ml/min/1.73 sqM); Potassium 3.9 mmol/L (3.5-5.1); Sodium 134 mmol/L (137-145)
[2022-07-13] MEDS: PANTOPRAZOLE 40 MG TABLET PO SCH ×2 (06:02→16:48)
[2022-07-13] MEDS: ENOXAPARIN 40 MG/0.4 ML SYRINGE SQ SCH ×2 (08:00→16:47)
[2022-07-13] MEDS: THIAMINE 100 MG TAB PO SCH (08:00)
[2022-07-13] MEDS: DOCUSATE 100 MG CAP PO SCH (08:00)
[2022-07-13] MEDS: FOLIC ACID 1 MG TAB PO SCH (08:00)
--- NOTE | 2022-07-13 12:09 | XR ---
EXAMINATION TYPE: XR chest 2V DATE OF EXAM: 07/13/2022 11:46 AM COMPARISON: Chest radiographs from 06/26/2019 TECHNIQUE: XR chest 2V Frontal and lateral views of the chest. CLINICAL INDICATION:Female, 52 years old with history of fever; FINDINGS: Lungs/Pleura: New streaky atelectasis in the left midlung There is no evidence of pleural effusion, f ocal consolidation, or pneumothorax. Pulmonary vascularity: Unremarkable. Heart/mediastinum: Cardiomediastinal silhouette is unremarkable. Musculoskeletal: No acute osseous pathology. IMPRESSION: 1. No acute cardiopulmonary disease/process. 2. New left midlung streaky atelectasis.
--- NOTE | 2022-07-13 14:34 | P.PN ---
Subjective Progress Note Date: 07/13/22 CHIEF COMPLAINT: Abdominal pain HISTORY OF PRESENT ILLNESS: Patient is postop day #2 status post laparoscopic cholecystectomy and lysis of adhesions. Patient reports that she is starting to feel a little better. She's had some decrease in her pain. She is having flatus. Denies any bowel movement. Denies any nausea or vomiting. Did have a low-grade temp of 100.1 early this morning. Heart rate around 112. Sodium 134 potassium 3.9 creatinine 0.49 Patient seen and examined with Dr. olea PHYSICAL EXAM: VITAL SIGNS: Reviewed. GENERAL: Well-developed in no acute distress. HEENT: No sclera icterus. Extraocular movements grossly intact. Moist buccal mucosa. Head is atraumatic, normocephalic. ABDOMEN: Soft. Nondistended. Incision sites clean dry and intact NEUROLOGIC: Alert and oriented. Cranial nerves II through XII grossly intact. ASSESSMENT: 1. Chronic cholecystitis and cholelithiasis with adhesions status post laparoscopic cholecystectomy and extensive lysis of adhesions 3. History of alcoholic liver cirrhosis 4. Recent hospitalization with enteritis and chronic cholecystitis 5. History of gastric bypass and panniculectomy 6. Low-grade fever likely due to atelectasis PLAN: -Continue low-fat diet -Continue supportive care -Encouraged patient to use incentive spirometer -Continue IV fluids -Encouraged patient to ambulate -DVT prophylaxis Lovenox and GI prophylaxis Protonix Physician Dental Assistant Teacher note has been reviewed by physician. Signing provider agrees with the documented findings, assessment, and plan of care. Objective - Vital Signs Vital signs: Vital Signs Temp 99.2 F 07/13/22 08:00 Pulse 107 H 07/13/22 08:00 Resp 19 07/13/22 08:00 BP 99/66 07/13/22 08:00 Pulse Ox 97 07/13/22 08:00 FiO2 Intake & Output 07/12/22 07/13/22 07/13/22 18:59 06:59 18:59 Output Total 300 Balance -300 Output: Urine 300 Other: Voiding Method Toilet # Voids 1 4 - Labs CBC & Chem 7: 07/12/22 07:57 07/13/22 04:08 Labs: Abnormal Lab Results - Last 24 Hours (Table) 07/13/22 Range/Units 04:08 Sodium 134 L (137-145) mmol/L Chloride 108 H (98-107) mmol/L Carbon Dioxide 20 L (22-30) mmol/L Creatinine 0.49 L (0.52-1.04) mg/dL Glucose 152 H (74-99) mg/dL
--- NOTE | 2022-07-13 15:54 | P.PN ---
Subjective Progress Note Date: 07/13/22 This is a 52 year old female who follows with Dr. Christensen, medical history of Liver cirrhosis with esophageal varices, gastric bypass, tummy tuck, tubal ligation. Patient is a daily smoker reports 4 to 5 cigarettes per day, marijuana use daily. Prior history of alcohol abuse, currently not drinking and has been taken off the liver transplant list at this time. Presents to the hospital with complaints of right sided abdominal pain right lower quadrant that has been on going since last Monday. She was hospitalized in May and evaluated for chronic cholecystitis and enteritis, and was recommended to follow up with surgery outpatient to discuss gallbladder removal, but she has not done so as of yet. Denies fever, chills, nausea or vomiting. Reports having bowel movement, her last one was yesterday, which was soft and brown. Denies diarrhea, melena, or bloody stool. Has increased abdominal bloating. CT abdomen pelvis completed showing possible partial small bowel obstruction from internal hernia and also local mass effect in the right pelvis. Distal small loop 2.6 cm which is fecal filled. There is cirrhosis and underlying portal venous hypertension. Abdominal ultrasound showing gallstones without evidence for acute cholecystitis although not entirely excluded. Liver enzymes are within normal limits on presentation, white count 6.7, hgb stable 11.3. She is afebrile, heart rate 82, blood pressure 102/68, 98% room air. General surgery has been consulted for further evaluation for now patient is placed NPO. 07/05/2022 Patient evaluated sitting up with family at bedside. Reports continued right lower quadrant abdominal pain. Worse after eating full liquid lunch. She had repeat abdominal pelvis CT last night showing mild small bowel mesenteric fat stranding right lower quadrant which appears new possibly relating to nonspecific inflammatory process. Appendix appears normal. There are likely multiple gall stones the bile ducts are not dilated. The gallbladder is enlarged. Liver cirrhosis. No evidence for bowel obstruction. Remains afebrile, on room air. 07/06/2022 Patient evaluated today ambulating in room. Continues with right lower quadrant abdominal pain. She states pain had improved in the afternoon yesterday, and reports tolerating some liquid diet. Has not had a BM since admission. General surgery following. Afebrile, heart rate 79, blood pressure 100/68, 98% room air. 07/07/2022 Patient evaluated today sitting up in chair. She is tearful and frustrated today about abdominal pain and not being able to tolerate much diet but feeling hungry. She was advanced to regular diet for lunch and did not tolerate well. General surgery continuing to monitor. Labs repeated today and liver enzymes continue to be within normal limits. She is afebrile, heart rate 80, blood pressure 124/83, 99% room air. 07/08/2022 Patient continues with persistent right sided abdominal pain worse with eating and states that she does feel bloated after eating. Has not had BM since admission. She will be monitored over the weekend and is scheduled to undergo cholecystectomy on Monday with Dr. Garcia. She remains afebrile. 07/09/2022 Patient is evaluated today on medical floor she continues with right upper and lower quad abdominal pain. Tolerating some diet. Feels hungry. No shortness of breath, no chest pain. Vitals stable. Cholecystectomy monday, surgery following. 07/10/2022 Patient continues to report right upper quadrant abdominal discomfort and tenderness on examination additionally she feels bloated after oral intake. She is having normal bowel movements. Tolerating some diet. She remains afebrile, heart rate 104, blood pressure 116/67, 100% room air. 07/11/2022 Patient is evaluated today postoperative laproscopic cholecystecomy and lysis of adhesions which surgical reports reveal extensive adhesions and also extensively cirrhotic liver. The gallbladder is sent for pathology. She is monitored on the medical floor and will be placed on IV fluids. Incentive spirometer is ordered. 07/12/2022 Patient is evaluated today resting in bed. Currently rating abdominal pain an 8/10 reports mostly incisional and surgical pain this is different than prior r ight sided abdominal pain. She has been tolerating diet with no nausea or vomiting. Passing gas post surgically. No BM yet. Today her white count is normal at 7.2, hgb stable at 10.3, sodium of 134, potassium of 4.4, BUN 12, creatinine 0.66. She had temperature overnight likely from postoperative a telectasis she has not been deep breathing secondary to pain. She is encouraged to use incentive spirometer. Pain is being managed with oral norco and IV dilaudid. Diet is being advanced. 07/13/2022 Patient is monitored today on medical floor postoperative day #2 laproscopic claire and lysis of adhesions. She continues to report abdominal pain 8/10 achy and she is receiving IV dilaudid and oral norco for pain management. She has not had BM yet but is passing gas and tolerating diet. She is wearing abdominal binder which she states did help the pain. Chest xray checked today as patient is having fever which shoes some atelectasis right mid lung. Patient is encouraged to use incentive spirometer. Review of Systems Constitutional: Denied any fatigue denied any fever. Cardio vascular: denied any chest pain, palpitations Gastrointestinal: denied any nausea, vomiting, diarrhea, right sided abdominal pain passing gas no BM. Pulmonary: Denied any shortness of breath cough Neurologic denied any new focal deficits All inpatient medications were reviewed and appropriate changes in these m edications as dictated in the interval history and assessment and plan. PHYSICAL EXAMINATION: GENERAL: The patient is alert and oriented x3, not in any acute distress. Well developed, well nourished. HEENT: Pupils are round and equally reacting to light. EOMI. No scleral icterus. No conjunctival pallor. Normocephalic, atraumatic. No pharyngeal erythema. No thyromegaly. CARDIOVASCULAR: S1 and S2 present. No murmurs, rubs, or gallops. PULMONARY: Chest is clear to auscultation, no wheezing or crackles. ABDOMEN: Soft, tender Right upper quad, nondistended, normoactive bowel sounds. No palpable organomegaly. post surgical abdomen laproscopic incisions are clean and dry MUSCULOSKELETAL: No joint swelling or deformity. EXTREMITIES: No cyanosis, clubbing, or pedal edema. NEUROLOGICAL: Gross neurological examination did not reveal any focal deficits. SKIN: No rashes. Assessment and plan Assessment Acute right upper quadrant abdominal pain possibly from adhesions she is postop day 2 lysis of adhesions and laprosocopic cholecystectomy Partial small bowel obstruction from internal hernias appears resolved, no convincing evidence for bowel obstruction found on repeat imaging. Having normal stools preoperatively Cholelisthiasis with chronic choleycystitis postop lap claire. History alcoholic liver cirrhosis History chronic alcohol abuse currently not drinking Daily nicotine use Daily marijuana use GI prophylaxis DVT prophylaxis Full Code Plan Continue IV fluids which have been changed to lactated ringers secondary to hyperchloremia. Continue with pain management. Diet has been advanced to low fiber. Abdominal binder in place. Increase activity level and encourage incenti ve spirometery use. Possible dc in the next 24 hours when cleared by surgery. Continue with pain management. The impression and plan of care has been dictated by Annmarie Bellamy, Nurse Practitioner as directed. Dr. Fred MD I have performed a history and physical examination and medical decision making of this patient, discussed the same with the dictator, and agree with the dictators assessment and plan as written, documented as a scribe. Based on total visit time, I have performed more than 50% of this visit. Objective - Vital Signs Vital signs: Vital Signs Temp 98.3 F 07/13/22 14:00 Pulse 103 H 07/13/22 14:00 Resp 17 07/13/22 14:00 BP 97/65 07/13/22 14:00 Pulse Ox 98 07/13/22 14:00 FiO2 Intake & Output 07/12/22 07/13/22 07/13/22 18:59 06:59 18:59 Intake Total 720 Output Total 300 Balance -300 720 Intake: Oral 720 Output: Urine 300 Other: Voiding Method Toilet # Voids 1 4 - Labs CBC & Chem 7: 07/12/22 07:57 07/13/22 04:08 Labs: Abnormal Lab Results - Last 24 Hours (Table) 07/13/22 Range/Units 04:08 Sodium 134 L (137-145) mmol/L Chloride 108 H (98-107) mmol/L Carbon Dioxide 20 L (22-30) mmol/L Creatinine 0.49 L (0.52-1.04) mg/dL Glucose 152 H (74-99) mg/dL Assessment and Plan Time with Patient: Less than 30
[2022-07-13] MEDS: LACTATED RINGERS 1,000 ML IV SCH (16:48)
[2022-07-13] MEDS: HYDROcodone/APAP 7.5-325MG 1 EACH TAB PO PRN (16:55)
[2022-07-14] MEDS: HYDROcodone/APAP 7.5-325MG 1 EACH TAB PO PRN ×3 (02:07→23:15)
[2022-07-14] MEDS: HYDROmorphone 0.5 MG/0.5 ML SYRINGE IVP PRN (04:14)
[2022-07-14] MEDS: LACTATED RINGERS 1,000 ML IV SCH (04:18)
[2022-07-14 04:20] LABS: Anisocytosis Slight; HCT 27.2 % (34.0-46.0); MCH 25.3 pg (25.0-35.0); MCHC 31.7 g/dL (31.0-37.0); MCV 79.6 fL (80.0-100.0); Mean Platelet Volume 9.2; Platelet Count 149 k/uL (150-450); RBC 3.42 m/uL (3.80-5.40); RDW 16.2 % (11.5-15.5); WBC 6.3 k/uL (3.8-10.6)
[2022-07-14 04:23] LABS: HGB 8.6 gm/dL (11.4-16.0)
[2022-07-14 04:36] LABS: African American GFR (CKD) >90 (>60 ml/min/1.73 sqM); Anion Gap 5 mmol/L; Blood Urea Nitrogen 12 mg/dL (7-17); Calcium 8.8 mg/dL (8.4-10.2); Carbon Dioxide 22 mmol/L (22-30); Chloride 109 mmol/L (98-107); Glucose 99 mg/dL (74-99); Non-African American GFR(CKD) >90 (>60 ml/min/1.73 sqM); Sodium 136 mmol/L (137-145)
[2022-07-14] MEDS: PANTOPRAZOLE 40 MG TABLET PO SCH ×2 (06:44→16:49)
[2022-07-14] MEDS: FOLIC ACID 1 MG TAB PO SCH (07:55)
[2022-07-14] MEDS: THIAMINE 100 MG TAB PO SCH (07:55)
[2022-07-14] MEDS: DOCUSATE 100 MG CAP PO SCH (07:55)
[2022-07-14] MEDS: HYDROmorphone 1 MG/ML 1 ML SYRINGE IVP PRN (08:20)
[2022-07-14] MEDS ORDERED: HYDROmorphone 0.5 MG/0.5 ML SYRINGE IVP PRN (12:24)
--- NOTE | 2022-07-14 13:11 | P.PN ---
Subjective Progress Note Date: 07/14/22 CHIEF COMPLAINT: Abdominal pain HISTORY OF PRESENT ILLNESS: Patient is postop day #3 status post laparoscopic cholecystectomy and lysis of adhesions. Patient has had 2 bowel movements and flatus. Denies any nausea or vomiting. She reports that she may have passed some blood in her stool this morning but she is not sure. She does continue to have abdominal pain. She reports the pain is not getting as. Afebrile. Heart rate is improved. WBC is 6.3 hemoglobin 10.3 down to 8.6. Platelets 149 sodium 136 potassium is 4.4 creatinine 0.47 chest x-ray with atelectasis Patient seen and examined with Dr. olea PHYSICAL EXAM: VITAL SIGNS: Reviewed. GENERAL: Well-developed in no acute distress. HEENT: No sclera icterus. Extraocular movements grossly intact. Moist buccal mucosa. Head is atraumatic, normocephalic. ABDOMEN: Soft. Nondistended. Incision sites clean dry and intact NEUROLOGIC: Alert and oriented. Cranial nerves II through XII grossly intact. ASSESSMENT: 1. Chronic cholecystitis and cholelithiasis with adhesions status post laparoscopic cholecystectomy and extensive lysis of adhesions 3. History of alcoholic liver cirrhosis 4. Recent hospitalization with enteritis and chronic cholecystitis 5. History of gastric bypass and panniculectomy 6. Low-grade fever likely due to atelectasis PLAN: -Continue low-fat diet -Continue supportive care -Encouraged patient to use incentive spirometer -Discontinue IV fluid -Encouraged patient to ambulate -Repeat CBC in a.m. -Anticipate discharge tomorrow -DVT prophylaxis Lovenox and GI prophylaxis Protonix Physician Cook Ice Cream note has been reviewed by physician. Signing provider agrees with the documented findings, assessment, and plan of care. Objective - Vital Signs Vital signs: Vital Signs Temp 98.8 F 07/14/22 06:58 Pulse 89 07/14/22 07:55 Resp 17 07/14/22 07:55 BP 121/78 07/14/22 06:58 Pulse Ox 100 07/14/22 06:58 FiO2 Intake & Output 07/13/22 07/14/22 07/14/22 18:59 06:59 18:59 Intake Total 720 900 118 Balance 720 900 118 Intake: Intake, IV Titration 900 Amount Lactated Ringers 1,000 ml 900 @ 75 mls/hr IV .[id number] ROMMEL Rx#:[id number] Oral 720 118 Other: Voiding Method Toilet Toilet # Voids 3 - Labs CBC & Chem 7: 07/14/22 04:09 07/14/22 04:05 Labs: Abnormal Lab Results - Last 24 Hours (Table) 07/14/22 07/14/22 Range/Units 04:05 04:09 RBC 3.42 L (3.80-5.40) m/uL Hgb 8.6 L D (11.4-16.0) gm/dL Hct 27.2 L (34.0-46.0) % MCV 79.6 L (80.0-100.0) fL RDW 16.2 H (11.5-15.5) % Plt Count 149 L (150-450) k/uL Sodium 136 L (137-145) mmol/L Chloride 109 H (98-107) mmol/L Creatinine 0.47 L (0.52-1.04) mg/dL
--- NOTE | 2022-07-14 16:09 | P.PN ---
Subjective Progress Note Date: 07/14/22 This is a 52 year old female who follows with Dr. Christensen, medical history of Liver cirrhosis with esophageal varices, gastric bypass, tummy tuck, tubal ligation. Patient is a daily smoker reports 4 to 5 cigarettes per day, marijuana use daily. Prior history of alcohol abuse, currently not drinking and has been taken off the liver transplant list at this time. Presents to the hospital with complaints of right sided abdominal pain right lower quadrant that has been on going since last Monday. She was hospitalized in May and evaluated for chronic cholecystitis and enteritis, and was recommended to follow up with surgery outpatient to discuss gallbladder removal, but she has not done so as of yet. Denies fever, chills, nausea or vomiting. Reports having bowel movement, her last one was yesterday, which was soft and brown. Denies diarrhea, melena, or bloody stool. Has increased abdominal bloating. CT abdomen pelvis completed showing possible partial small bowel obstruction from internal hernia and also local mass effect in the right pelvis. Distal small loop 2.6 cm which is fecal filled. There is cirrhosis and underlying portal venous hypertension. Abdominal ultrasound showing gallstones without evidence for acute cholecystitis although not entirely excluded. Liver enzymes are within normal limits on presentation, white count 6.7, hgb stable 11.3. She is afebrile, heart rate 82, blood pressure 102/68, 98% room air. General surgery has been consulted for further evaluation for now patient is placed NPO. 07/05/2022 Patient evaluated sitting up with family at bedside. Reports continued right lower quadrant abdominal pain. Worse after eating full liquid lunch. She had repeat abdominal pelvis CT last night showing mild small bowel mesenteric fat stranding right lower quadrant which appears new possibly relating to nonspecific inflammatory process. Appendix appears normal. There are likely multiple gall stones the bile ducts are not dilated. The gallbladder is enlarged. Liver cirrhosis. No evidence for bowel obstruction. Remains afebrile, on room air. 07/06/2022 Patient evaluated today ambulating in room. Continues with right lower quadrant abdominal pain. She states pain had improved in the afternoon yesterday, and reports tolerating some liquid diet. Has not had a BM since admission. General surgery following. Afebrile, heart rate 79, blood pressure 100/68, 98% room air. 07/07/2022 Patient evaluated today sitting up in chair. She is tearful and frustrated today about abdominal pain and not being able to tolerate much diet but feeling hungry. She was advanced to regular diet for lunch and did not tolerate well. General surgery continuing to monitor. Labs repeated today and liver enzymes continue to be within normal limits. She is afebrile, heart rate 80, blood pressure 124/83, 99% room air. 07/08/2022 Patient continues with persistent right sided abdominal pain worse with eating and states that she does feel bloated after eating. Has not had BM since admission. She will be monitored over the weekend and is scheduled to undergo cholecystectomy on Monday with Dr. Garcia. She remains afebrile. 07/09/2022 Patient is evaluated today on medical floor she continues with right upper and lower quad abdominal pain. Tolerating some diet. Feels hungry. No shortness of breath, no chest pain. Vitals stable. Cholecystectomy monday, surgery following. 07/10/2022 Patient continues to report right upper quadrant abdominal discomfort and tenderness on examination additionally she feels bloated after oral intake. She is having normal bowel movements. Tolerating some diet. She remains afebrile, heart rate 104, blood pressure 116/67, 100% room air. 07/11/2022 Patient is evaluated today postoperative laproscopic cholecystecomy and lysis of adhesions which surgical reports reveal extensive adhesions and also extensively cirrhotic liver. The gallbladder is sent for pathology. She is monitored on the medical floor and will be placed on IV fluids. Incentive spirometer is ordered. 07/12/2022 Patient is evaluated today resting in bed. Currently rating abdominal pain an 8/10 reports mostly incisional and surgical pain this is different than prior right sided abdominal pain. She has been tolerating diet with no nausea or vomiting. Passing gas post surgically. No BM yet. Today her white count is normal at 7.2, hgb stable at 10.3, sodium of 134, potassium of 4.4, BUN 12, creatinine 0.66. She had temperature overnight likely from postoperative atelectasis she has not been deep breathing secondary to pain. She is encouraged to use incentive spirometer. Pain is being managed with oral norco and IV dilaudid. Diet is being advanced. 07/13/2022 Patient is monitored today on medical floor postoperative day #2 laproscopic claire and lysis of adhesions. She continues to report abdominal pain 8/10 achy and she is receiving IV dilaudid and oral norco for pain management. She has not had BM yet but is passing gas and tolerating diet. She is wearing abdominal binder which she states did help the pain. Chest xray checked today as patient is having fever which shoes some atelectasis right mid lung. Patient is encouraged to use incentive spirometer. 07/14/2022 Patient is seen and evaluated in follow-up today postoperative laparoscopic c holecystectomy with lysis of adhesions. Patient continues to have some abdominal pain and per nursing staff has been requesting Dilaudid and refused [place]. Discussed with the patient about limiting IV pain medications and using the [place] and will decrease the dosage of Dilaudid and to use only as needed for severe pain. Patient encouraged to increase activity as tolerated and continue to use incentive spirometer at least 10 times every hour while awake. Patient reports she is having bowel movements and passing gas. Patient reports to tolerating diet with no reports of nausea or vomiting noted. There was a mild drop in hemoglobin from 10.3 on 07/12/2022 to 8.6 today with no active bleeding noted. Patient was maintained on IV hydration and sodium improved to 136 with a potassium of 4.0 and creatinine remains normal and fluids are being discontinued. Gen. surgery following recommending monitoring overnight for pain control with possible discharge in 24 hours. Patient is afebrile and denies chest pain, palpitations, or shortness of breath. Patient reports she has been up and walking the halls today. Review of Systems Constitutional: Denied any fatigue denied any fever. Cardio vascular: denied any chest pain, palpitations Gastrointestinal: denied any nausea, vomiting, diarrhea, reports some right- sided discomfort, reports passing gas and had bowel movements Pulmonary: Denied any shortness of breath cough Neurologic denied any new focal deficits All inpatient medications were reviewed and appropriate changes in these medications as dictated in the interval history and assessment and plan. PHYSICAL EXAMINATION: GENERAL: The patient is alert and oriented x3, not in any acute distress. Well developed, well nourished. HEENT: Pupils are round and equally reacting to light. EOMI. No scleral icterus. No conjunctival pallor. Normocephalic, atraumatic. No pharyngeal erythema. No thyromegaly. CARDIOVASCULAR: S1 and S2 present. No murmurs, rubs, or gallops. PULMONARY: Chest is clear to auscultation, no wheezing or crackles. ABDOMEN: Soft, tender Right upper quad on palpation, nondistended, normoactive bowel sounds. No palpable organomegaly. post surgical abdomen laproscopic incisions are clean and dry, abdominal binder noted MUSCULOSKELETAL: No joint swelling or deformity. EXTREMITIES: No cyanosis, clubbing, or pedal edema. NEUROLOGICAL: Gross neurological examination did not reveal any focal deficits. SKIN: No rashes. Assessment: Acute right upper quadrant abdominal pain possibly from adhesions, she is postop day 3 lysis of adhesions and laprosocopic cholecystectomy Partial small bowel obstruction from internal hernias appears resolved, no co nvincing evidence for bowel obstruction found on repeat imaging. Having normal stools preoperatively Cholelithiasis with chronic choleycystitis postop lap claire. History alcoholic liver cirrhosis History chronic alcohol abuse currently not drinking Daily nicotine use Daily marijuana use GI prophylaxis DVT prophylaxis Full Code Plan: Recommend continue with current medications and management with general surgery following. Patient is tolerating oral intake reports to passing gas and having bowel movements and IV fluids being discontinued Discussed with the patient about limiting the use of IV narcotics and encouraged oral narcotic medications and this was discussed with the nursing staff as well. Recommend to continue with current diet and advance slowly as tolerated. There was a drop in hemoglobin from presurgical to post although stable at 8.6 with no active bleeding noted. Surgery recommending follow-up CBC in the a.m. and monitoring overnight Recommend to continue with incentive spirometer at least 10 times every hour while awake Recommend and encouraged increased activity as tolerated Possible discharge in 24 hours once cleared by surgery The impression and plan of care has been dictated by Ginna Troy, Nurse Practitioner as directed. Dr. Fred MD I have performed a history and examination and MDM of this patient, discussed the same with the dictator, and agree with the dictator's assessment and plan as written ,documented as a scribe. Based on total visit time, I have performed more than 50% of the visit. Objective - Vital Signs Vital signs: Vital Signs Temp 98.3 F 07/14/22 14:16 Pulse 103 H 07/14/22 14:16 Resp 18 07/14/22 14:16 BP 94/64 07/14/22 14:16 Pulse Ox 96 07/14/22 14:16 FiO2 Intake & Output 07/13/22 07/14/22 07/14/22 18:59 06:59 18:59 Intake Total 720 900 358 Balance 720 900 358 Intake: Intake, IV Titration 900 Amount Lactated Ringers 1,000 ml 900 @ 75 mls/hr IV .[id number] [facility] Rx#:[id number] Oral 720 358 Other: Voiding Method Toilet Toilet # Voids 3 - Labs CBC & Chem 7: 07/14/22 04:09 07/14/22 04:05 Labs: Abnormal Lab Results - Last 24 Hours (Table) 07/14/22 07/14/22 Range/Units 04:05 04:09 RBC 3.42 L (3.80-5.40) m/uL Hgb 8.6 L D (11.4-16.0) gm/dL Hct 27.2 L (34.0-46.0) % MCV 79.6 L (80.0-100.0) fL RDW 16.2 H (11.5-15.5) % Plt Count 149 L (150-450) k/uL Sodium 136 L (137-145) mmol/L Chloride 109 H (98-107) mmol/L Creatinine 0.47 L (0.52-1.04) mg/dL
[2022-07-15] MEDS: PANTOPRAZOLE 40 MG TABLET PO SCH (06:18)
[2022-07-15 06:19] LABS: Anisocytosis Slight; Basophils # (A) 0.1 k/uL (0-0.2); Basophils % (A) 1 %; Eosinophils # (A) 0.2 k/uL (0-0.7); Eosinophils % (A) 3 %; HCT 28.1 % (34.0-46.0); HGB 8.9 gm/dL (11.4-16.0); Lymphocytes # (A) 0.7 k/uL (1.0-4.8); Lymphocytes % (A) 14 %; MCH 25.3 pg (25.0-35.0); MCHC 31.7 g/dL (31.0-37.0); MCV 79.7 fL (80.0-100.0); Mean Platelet Volume 8.9; Monocytes # (A) 0.4 k/uL (0-1.0); Monocytes % (A) 8 %; Neutrophils # (A) 3.9 k/uL (1.3-7.7); Neutrophils % (A) 72 %; Platelet Count 190 k/uL (150-450); RBC 3.52 m/uL (3.80-5.40); RDW 16.4 % (11.5-15.5); WBC 5.4 k/uL (3.8-10.6)
[2022-07-15 07:18] VITALS: RESP 18
[2022-07-15] MEDS: HYDROcodone/APAP 7.5-325MG 1 EACH TAB PO PRN ×2 (07:40→14:32)
[2022-07-15] MEDS: ENOXAPARIN 40 MG/0.4 ML SYRINGE SQ SCH (07:40)
[2022-07-15] MEDS: DOCUSATE 100 MG CAP PO SCH (07:40)
[2022-07-15] MEDS: FOLIC ACID 1 MG TAB PO SCH (11:29)
[2022-07-15] MEDS: THIAMINE 100 MG TAB PO SCH (11:29)
--- NOTE | 2022-07-15 13:21 | P.PN ---
Subjective Progress Note Date: 07/15/22 CHIEF COMPLAINT: Abdominal pain HISTORY OF PRESENT ILLNESS: Patient is postop day #4 status post laparoscopic cholecystectomy and lysis of adhesions. Patient reports having bowel movements. Her pain is better controlled today. She denies any nausea or vomiting. She is tolerating diet. She has been up and ambulating. Afebrile. Heart rate 95. Mildly tachycardic during the night. WBC is 5.4 hemoglobin 8.6 up to 8.9 platelet 190 sodium is 136 potassium 4.0 creatinine 0.47 Patient seen and examined with Dr. olea PHYSICAL EXAM: VITAL SIGNS: Reviewed. GENERAL: Well-developed in no acute distress. HEENT: No sclera icterus. Extraocular movements grossly intact. Moist buccal mucosa. Head is atraumatic, normocephalic. ABDOMEN: Soft. Nondistended. Incision sites clean dry and intact NEUROLOGIC: Alert and oriented. Cranial nerves II through XII grossly intact. ASSESSMENT: 1. Chronic cholecystitis and cholelithiasis with adhesions status post laparoscopic cholecystectomy and extensive lysis of adhesions 3. History of alcoholic liver cirrhosis 4. Recent hospitalization with enteritis and chronic cholecystitis 5. History of gastric bypass and panniculectomy 6. Low-grade fever likely due to atelectasis PLAN: -Patient can be discharged from surgical standpoint -Continue low-fat diet -Encouraged patient to ambulate -DVT prophylaxis Lovenox and GI prophylaxis Protonix Physician Licensed Club Manager note has been reviewed by physician. Signing provider agrees with the documented findings, assessment, and plan of care. Objective - Vital Signs Vital signs: Vital Signs Temp 98.6 F 07/15/22 07:17 Pulse 95 07/15/22 07:17 Resp 18 07/15/22 07:17 BP 119/76 07/15/22 07:17 Pulse Ox 98 07/15/22 07:17 FiO2 Intake & Output 07/14/22 07/15/22 07/15/22 18:59 06:59 18:59 Intake Total 358 Output Total 0 Balance 358 0 Intake: Oral 358 Output: Urine 0 Other: Voiding Method Toilet Toilet # Voids 1 - Labs CBC & Chem 7: 07/15/22 05:15 07/14/22 04:05 Labs: Abnormal Lab Results - Last 24 Hours (Table) 07/15/22 Range/Units 05:15 RBC 3.52 L (3.80-5.40) m/uL Hgb 8.9 L (11.4-16.0) gm/dL Hct 28.1 L (34.0-46.0) % MCV 79.7 L (80.0-100.0) fL RDW 16.4 H (11.5-15.5) % Lymphocytes # 0.7 L (1.0-4.8) k/uL
[2022-07-15 14:25] VITALS: BP 120/82; PULSE 96; TEMP 98.3
--- NOTE | 2022-07-15 21:01 | P.DS ---
Providers Date of admission: 07/04/22 08:02 Expected date of discharge: 07/15/22 Attending physician: Lucy Alcaraz Consults: 07/04/22 08:00 Consult Physician Routine Consulting Provider: Blaise Garcia Consult Reason/Comments: psbo Do you want consulting provider notified?: Yes Primary care physician: Fermin Ruby Hospital Course: Final diagnosis Acute right upper quadrant abdominal pain possibly from adhesions, status post lysis of adhesions and laprosocopic cholecystectomy Partial small bowel obstruction from internal hernias appears resolved, no convincing evidence for bowel obstruction found on repeat imaging Cholelithiasis with chronic choleycystitis postop lap claire. drop in hemoglobin likely dilutional as patient was placed on IV fluids History alcoholic liver cirrhosis History chronic alcohol abuse currently not drinking Daily nicotine use Daily marijuana use GI prophylaxis DVT prophylaxis Full Code Discharge disposition Patient is being discharged in a stable condition with guarded prognosis to home. Patient will follow-up with Dr. Christensen in the outpatient setting upon discharge. Patient is to follow-up with general surgery as scheduled. Total time taken is greater than 35 minutes. Hospital course This is a 52-year-old female who was recently admitted with increased abdominal pain and underwent acute laparoscopic cholecystectomy with lysis of adhesions. Patient with multiple abdominal surgeries with extensive medical issues. Patient also with chronic alcoholic liver cirrhosis. Patient reports she has not been drinking and strongly encourage the patient to continue to avoid alcohol use. Patient continues with some right upper quadrant pain with deep inspiration encourage the patient take the incentive spirometer home and c ontinue using at least 10 times every hour while awake. Patient has been cleared by surgery tolerating diet with no further reports nausea or vomiting and is passing gas and having bowel movements. Patient instructed to follow-up with primary care provider along with general surgery outpatient. Recommend repeat labs in the next week or so. Monitor hemoglobin outpatient. Currently no reports of chest pain, shortness of breath, or palpitations. Patient is afebrile. No reports of nausea or vomiting and patient is tolerating diet. Patient will be discharged home today. Guarded prognosis Physical exam: Gen: This is a 52-year-old female who is awake, alert and oriented 3, well- developed, well-nourished, appears older than stated age HEENT: Head is atraumatic, normocephalic. Pupils equal, round. Sclerae is anicteric. NECK: Supple. No JVD. No lymphadenopathy. No thyromegaly. LUNGS: Clear to auscultation. No wheezes or rhonchi. No intercostal retractions. HEART: Regular rate and rhythm. No murmur. ABDOMEN: Soft. Bowel sounds are present. No masses. right Upper quadrant tenderness to palpation. EXTREMITIES: No pedal edema. No calf tenderness. NEUROLOGICAL: Patient is awake, alert and oriented x3. Cranial nerves 2 through 12 are grossly intact. Please refer to medication reconciliation sheet for a list of medications. The impression and plan of care has been dictated by Ginna Troy Nurse Practitioner as directed. Dr. Fred MD I have performed a history and examination and MDM of this patient, discussed the same with the dictator, and agree with the dictator's assessment and plan as written ,documented as a scribe. Based on total visit time, I have performed more than 50% of the visit. Patient Condition at Discharge: Fair Plan - Discharge Summary New Discharge Prescriptions: New Docusate [Colace] 100 mg PO DAILY #30 capsule Ibuprofen [Motrin] 600 mg PO Q8HR PRN #30 tab PRN Reason: Pain HYDROcodone/APAP 7.5-325MG [[place] 7.5-325] 1 tab PO Q6HR PRN 3 Days #12 tab PRN Reason: Pain Continue Thiamine [Vitamin B-1] 100 mg PO DAILY@1200 #30 tab Dicyclomine [Bentyl] 10 mg PO TID PRN #20 cap PRN Reason: Dyspepsia Folic Acid 1 mg PO DAILY@1200 #30 tab Pantoprazole Sodium [Protonix] 40 mg PO BID 30 Days #60 tab Ondansetron [Zofran] 4 mg PO Q6HR PRN #20 tab PRN Reason: Nausea And Vomiting Multivitamins, Thera [Multivitamin (formulary)] 1 tab PO DAILY@1200 Discharge Medication List Dicyclomine [Bentyl] 10 mg PO TID PRN #20 cap 06/15/22 [Rx] Folic Acid 1 mg PO DAILY@1200 #30 tab 06/15/22 [Rx] Ondansetron [Zofran] 4 mg PO Q6HR PRN #20 tab 06/15/22 [Rx] Pantoprazole Sodium [Protonix] 40 mg PO BID 30 Days #60 tab 06/15/22 [Rx] Thiamine [Vitamin B-1] 100 mg PO DAILY@1200 #30 tab 06/15/22 [Rx] Multivitamins, Thera [Multivitamin (formulary)] 1 tab PO DAILY@1200 07/04/22 [History] Docusate [Colace] 100 mg PO DAILY #30 capsule 07/15/22 [Rx] HYDROcodone/APAP 7.5-325MG [[place] 7.5-325] 1 tab PO Q6HR PRN 3 Days #12 tab 07/15/22 [Rx] Ibuprofen [Motrin] 600 mg PO Q8HR PRN #30 tab 07/15/22 [Rx] Follow up Appointment(s)/Referral(s): Tung Christensen MD [Primary Care Provider] - 07/21/22 1:00 pm Blaise Garcia MD [STAFF PHYSICIAN] - 07/26/22 3:00 pm Ambulatory/Diagnostic Orders: Complete Blood Count w/diff [LAB.AMB] Time Frame: 1 Week, Location: None Selected Patient Instructions/Handouts: Low Fat Diet (DC), Laparoscopic Cholecystectomy (DC) Activity/Diet/Wound Care/Special Instructions: Activity Limited until follow-up Follow-up primary care provider on discharge Follow-up surgery outpatient in 1-2 weeks Continue low-fat heart healthy diet Your sodium level is within normal limits at 136 Follow-up within 1 week with repeat labs No driving while taking [place] No lifting over 10 pounds Shower daily. No soaking or tub baths for 2 weeks Very light activity until you are reevaluated at your follow up appointment with your surgeon Discharge Disposition: HOME SELF-CARE
== END 2022-07-15 16:04 | disposition home or self-care (01) | DRG 418 ==
LOC: EC 05:03 → 4SSUR 08:02
PROVIDERS: ADMIT Hospitalist; ATTEND Hospitalist
PROC: 0FN44ZZ Release Gallbladder, Percutaneous Endoscopic Approach (ICD-10-PCS; principal; 2022-07-11 11:05)
PROC: 0FT44ZZ Resection of Gallbladder, Percutaneous Endoscopic Approach (ICD-10-PCS; principal; 2022-07-11 11:05)
PROC: 0DNW4ZZ Release Peritoneum, Percutaneous Endoscopic Approach (ICD-10-PCS; principal; 2022-07-11 11:05)
DX: K80.10 Calculus of gallbladder with chronic cholecystitis without obstruction (principal); I85.10 Secondary esophageal varices without bleeding; K76.6 Portal hypertension; R71.0 Precipitous drop in hematocrit; J98.11 Atelectasis; K70.30 Alcoholic cirrhosis of liver without ascites; F10.11 Alcohol abuse, in remission; K66.0 Peritoneal adhesions (postprocedural) (postinfection); Z28.310 Unvaccinated for COVID-19; F17.210 Nicotine dependence, cigarettes, uncomplicated; Z79.899 Other long term (current) drug therapy; Z98.84 Bariatric surgery status
CPT/HCPCS: 36415; 71046; 74176; 74177; 76705; 80048; 80053; 81001; 83690; 84484; 85025; 85027; 88304; 96361; 96374; 96375; 99285

== ENCOUNTER → 2022-07-26 | Outpatient (CLI) | payer MEDICARE ==
[2022-07-26 22:27] LABS: Basophils # (A) 0.11 X 10*3/uL (0.00-0.10); Basophils % (A) 1.2 %; Eosinophils # (A) 0.28 X 10*3/uL (0.04-0.35); Eosinophils % (A) 2.9 %; HCT 35.7 % (37.2-46.3); HGB 10.3 g/dL (12.0-15.0); Immature Grans, Automated 0.5 %; Lymphocytes # (A) 1.66 X 10*3/uL (0.90-5.00); Lymphocytes % (A) 17.4 %; MCH 23.8 pg (27.0-32.0); MCHC 28.9 g/dL (32.0-37.0); MCV 82.4 fL (80.0-97.0); Mean Platelet Volume 10.1 fL (9.5-12.2); Monocytes # (A) 0.83 X 10*3/uL (0.20-1.00); Monocytes % (A) 8.7 %; NRBC Per 100 WBC 0 /100 WBCS (0.0-0.0); Neutrophils # (A) 6.61 X 10*3/uL (1.80-7.70); Neutrophils % (A) 69.3 %; Platelet Count 428 X 10*3/uL (140-440); RBC 4.33 X 10*6/uL (4.10-5.20); RDW 16.2 % (11.5-14.5); WBC 9.54 X 10*3/uL (4.50-10.00)
[2022-07-26 23:41] LABS: African American GFR (CKD) 117.3 (60.0-200.0); BUN/Creat Ratio 21.75 Ratio (12.00-20.00); Blood Urea Nitrogen 13.9 mg/dL (9.0-27.0); Calcium 10.4 mg/dL (8.7-10.3); Carbon Dioxide 24.7 mmol/L (20.0-27.5); Non-African American GFR(CKD) 101.2 (60.0-200.0); Potassium 5.1 mmol/L (3.5-5.5)
== END | disposition home or self-care (01) ==
LOC: LABWHC1 14:46
PROVIDERS: ATTEND Surgery
DX: E87.1 Hypo-osmolality and hyponatremia (principal); D64.9 Anemia, unspecified
CPT/HCPCS: 36415; 80048; 85025

== ENCOUNTER → 2023-02-22 | Outpatient (CLI) | payer MEDICARE ==
[2023-02-22 12:26] LABS: HCT 34.3 % (37.2-46.3); HGB 10.4 d/dL (12.0-15.0); MCH 22.7 pg (27.0-32.0); MCHC 30.3 d/dL (32.0-37.0); MCV 74.9 FL (80.0-97.0); Mean Platelet Volume 11.2 FL (9.5-12.2); NRBC Per 100 WBC 0 X 10*3/uL (0.00-0.01); Platelet Count 264 X 10*3/uL (140-440); RBC 4.58 X 10*6/uL (4.10-5.20); RDW 16.3 % (11.5-14.5); WBC 5.14 X 10*3/uL (4.50-10.00)
[2023-02-22 13:52] LABS: ALT 26 U/L (8-44); AST 37 U/L (13-35); Albumin 4.3 d/dL (3.8-4.9); Albumin/Globulin Ratio 1.16 Ratio (1.60-3.17); Alkaline Phosphatase 106 U/L (41-126); BUN/Creat Ratio 17.57 Ratio (12.00-20.00); Blood Urea Nitrogen 12.3 mg/dL (9.0-27.0); Calcium 10.2 mg/dL (8.7-10.3); Carbon Dioxide 21.9 mmol/L (21.6-31.8); Chloride 106 mmol/L (96-109); Globulin 3.7 d/dL (1.6-3.3); Glucose 104 mg/dL (70-110); Potassium 4.6 mmol/L (3.5-5.5); Sodium 140 mmol/L (135-145); Total Bilirubin 0.3 mg/dL (0.3-1.2)
== END | disposition home or self-care (01) ==
LOC: LABWHC1 07:59
PROVIDERS: ATTEND Internal Medicine Gastroenterology
DX: K70.30 Alcoholic cirrhosis of liver without ascites (principal)
CPT/HCPCS: 36415; 80053; 82105; 85027

== ENCOUNTER → 2023-02-22 | Outpatient (CLI) | payer MEDICARE ==
--- NOTE | 2023-02-22 09:38 | US ---
EXAMINATION TYPE: US abdomen limited DATE OF EXAM: 02/22/2023 COMPARISON: 08/23/2022 CT, abdominal ultrasound 07/04/2022 CLINICAL INDICATION: Female, 53 years old with history of K70.30; cirrhosis x 15 yrs TECHNIQUE: Multiple sonographic images of the right upper quadrant are obtained. FINDINGS: EXAM MEASUREMENTS: Liver Length: 19.1 cm CBD: 0.4 cm Right Kidney: 10.2 x 5.6 x 3.8 cm BOILERMAKER NOTES:some exam limitations due to overlying bowel gas Pancreas: Obscured by bowel gas Liver: enlarged, attenuating, lobular borders Gallbladder: Surgically absent CBD: wnl Right Kidney: wnl Increase is obscured by overlying bowel gas. Cirrhotic appearance of the liver with coarsened echotex ture and surface nodularity. This limits evaluation for intrahepatic lesions. No gross evidence of le hanny or intrahepatic ductal dilatation. Gallbladder surgically absent. Common bile duct is within nor mal limits. Right kidney is unremarkable without evidence of hydronephrosis, nephrolithiasis, or gerri d mass. No visualized ascites. IMPRESSION: 1. Hepatic cirrhosis without focal lesion identified. 2. Postcholecystectomy changes.
== END | disposition home or self-care (01) ==
LOC: RADUSWWP 10:46
PROVIDERS: ATTEND Internal Medicine Gastroenterology
DX: K70.30 Alcoholic cirrhosis of liver without ascites (principal); Z90.49 Acquired absence of other specified parts of digestive tract
CPT/HCPCS: 76705

== ENCOUNTER 2023-02-28 10:11 | Day surgery (SDC) | payer MEDICARE ==
[2023-02-22 10:54] VITALS: BMI 24.2
[~2023-02-28 10:11] MED LIST changes: -LACTATED RINGERS 1,000 ML IV ONE; -LIDOCAINE 1% (10MG/ML) FOR IV START INTRADERMA ONE; +LIDOCAINE 1% (10MG/ML) FOR IV START INTRADERMA PRN; -LIDOCAINE 1% INJ 10MG/ML (20 ML MDV) ONE; -PROPOFOL 10 MG/ML 20 ML VIAL IV ONE
[2023-02-28 11:07] VITALS: TEMP 97.9
[2023-02-28] MEDS ORDERED: LIDOCAINE 2% INJ 20 MG/ML (2 ML VIAL) ONE (12:54)
[2023-02-28] MEDS ORDERED: PROPOFOL 10 MG/ML 20 ML VIAL IV ONE (12:54)
--- NOTE | 2023-02-28 13:06 | P.PCN ---
Date of Procedure: 02/28/23 Procedure(s) Performed: BRIEF HISTORY: Patient is a 53-year-old, pleasant, white female scheduled for an upper endoscopy as a part of screening for esophageal varices. Patient with alcohol cirrhosis of the liver diagnosed 6 years ago.. PROCEDURE PERFORMED: Esophagogastroduodenoscopy. PREOPERATIVE DIAGNOSIS: History of liver cirrhosis/screening for esophageal varices. IV sedation per anesthesia. PROCEDURE: After informed consent was obtained, the patient was brought into the endoscopy unit. IV sedation was administered by Anesthesia under continuous monitoring. Initially the Olympus GIF-140 video endoscope was inserted into the mouth. Esophagus intubated without any difficulty. It was gradually advanced into the stomach. There was evidence of gastric bypass surgery with Cande-en-Y anastomosis that appeared normal. Scope was advanced into the jejunum that appeared normal. The scope was then withdrawn into the stomach and the gastric pouch appeared normal. The GE junction was located at 39 cm from the incisors. There were 2 linear erosions in the distal esophagus consistent with LA grade B reflux esophagitis. Small distal esophageal varices seen and the patient tolerated the procedure well. IMPRESSION: 1. Small mid and distal esophageal varices. 2. 2 superficial erosions in the distal esophagus consistent with LA grade B reflux esophagitis. RECOMMENDATIONS: The findings of this examination were discussed with the patient as well as a family. She will be started on propranolol 10 mg daily times daily for esophageal varices and prevention of esophageal variceal bleeding future. We'll repeat EGD in 2 years.
[2023-02-28 13:33] VITALS: BP 135/90; PULSE 68; RESP 20
== END 2023-02-28 14:07 | disposition home or self-care (01) ==
LOC: ORWHC2ENDO 10:11
PROVIDERS: ATTEND Internal Medicine Gastroenterology
DX: K70.30 Alcoholic cirrhosis of liver without ascites (principal); I85.01 Esophageal varices with bleeding; I85.00 Esophageal varices without bleeding; F17.210 Nicotine dependence, cigarettes, uncomplicated; Z95.1 Presence of aortocoronary bypass graft
CPT/HCPCS: 43235; J2704; J2001

== ENCOUNTER → 2023-07-25 | Outpatient (CLI) | payer MEDICARE ==
[2023-07-25 13:07] LABS: HCT 32.8 % (37.2-46.3); HGB 9.3 g/dL (12.0-15.0); MCH 20.9 pg (27.0-32.0); MCHC 28.4 g/dL (32.0-37.0); MCV 73.7 FL (80.0-97.0); Mean Platelet Volume 11.3 FL (9.5-12.2); NRBC Per 100 WBC 0 X 10*3/uL (0.00-0.01); Platelet Count 235 X 10*3/uL (140-440); RBC 4.45 X 10*6/uL (4.10-5.20); RDW 17.2 % (11.5-14.5); WBC 7.18 X 10*3/uL (4.50-10.00)
[2023-07-25 13:44] LABS: ALT 35 U/L (8-44); AST 41 U/L (13-35); Albumin 4.2 g/dL (3.8-4.9); Alkaline Phosphatase 108 U/L (41-126); BUN/Creat Ratio 22.57 Ratio (12.00-20.00); Blood Urea Nitrogen 15.8 mg/dL (9.0-27.0); Calcium 9.6 mg/dL (8.7-10.3); Carbon Dioxide 24.4 mmol/L (21.6-31.8); Chloride 104 mmol/L (96-109); Globulin 3.5 g/dL (1.6-3.3); Glucose 96 mg/dL (70-110); Potassium 4.7 mmol/L (3.5-5.5); Sodium 136 mmol/L (135-145); Total Bilirubin 0.2 mg/dL (0.3-1.2); Total Protein 7.7 g/dL (6.2-8.2)
== END | disposition home or self-care (01) ==
LOC: LABWHC1 07:05
PROVIDERS: ATTEND Internal Medicine Gastroenterology
DX: K70.30 Alcoholic cirrhosis of liver without ascites (principal)
CPT/HCPCS: 36415; 80053; 82105; 85027

== ENCOUNTER → 2023-11-27 | Outpatient (CLI) | payer MEDICARE ==
[2023-11-27 16:14] LABS: % Iron Saturation 6.94 (12.00-45.00); Ferritin 11.7 ng/mL (10.0-291.0)
[2023-11-27 16:35] LABS: HCT 39.9 % (37.2-46.3); MCH 27.3 pg (27.0-32.0); MCHC 32.6 g/dL (32.0-37.0); MCV 83.6 FL (80.0-97.0); Mean Platelet Volume 11.1 FL (9.5-12.2); NRBC Per 100 WBC 0 X 10*3/uL (0.00-0.01); Platelet Count 251 X 10*3/uL (140-440); RBC 4.77 X 10*6/uL (4.10-5.20); WBC 6.13 X 10*3/uL (4.50-10.00)
== END | disposition home or self-care (01) ==
LOC: LABWHC1 09:44
PROVIDERS: ATTEND Internal Medicine Gastroenterology
DX: D50.9 Iron deficiency anemia, unspecified (principal)
CPT/HCPCS: 36415; 82728; 83540; 83550; 85027

== ENCOUNTER 2024-04-14 12:14 | Emergency (ER) | payer MEDICARE ==
--- NOTE | 2024-04-14 12:30 | ED ---
Lower Extremity Injury HPI - General Chief Complaint: Extremity Injury, Lower Stated Complaint: R knee injury Time Seen by Provider: 04/14/24 12:25 Source: patient, RN notes reviewed Mode of arrival: wheelchair Limitations: no limitations - History of Present Illness Initial Comments: This is a 54-year-old female presenting with right knee pain following injury yesterday. Patient states she was struck in the left knee by a softball yesterday morning before struck again in the right knee by a different softball shortly afterwards. Patient states left knee has minimal pain today but right knee is comparatively significantly worse. Patient rates pain 7 out of 10 and is unable to straighten her right leg for bear weight. Patient endorses use of cold compress and ibuprofen with minimal relief. MD Complaint: knee injury Onset/Timin -: days(s) Injury: Knee: Right (Patient also hit in left knee with softball with minimal pain) Type of Injury: blunt Place: street/outdoors Severity scale (1-10): 7 Improves With: cold therapy, immobilization, rest Worsens With: weight bearing, movement, other (Extension) Context: direct blow Associated Symptoms: unable to bear weight Treatments Prior to Arrival: cold therapy, NSAIDS - Related Data Previous Rx's Medication Instructions Recorded Ibuprofen [Motrin] 800 mg PO Q8H PRN #30 tab 04/14/24 Allergies Allergy/AdvReac Type Severity Reaction Status Date / Time No Known Allergies Allergy Verified 02/20/24 06:50 Review of Systems ROS Statement: Those systems with pertinent positive or pertinent negative responses have been documented in the HPI. ROS Other: All systems not noted in ROS Statement are negative. Past Medical History Past Medical History: Liver Disease Additional Past Medical History / Comment(s): CIRRHOSIS. ESOPHAGEAL VARICIES History of Any Multi-Drug Resistant Organisms: None Reported Past Surgical History: Bariatric Surgery, Cholecystectomy, Tubal Ligation Additional Past Surgical History / Comment(s): tummy tuck, gastric bypass, EGD, COLONOSCOPY Past Anesthesia/Blood Transfusion Reactions: No Reported Reaction Additional Drug Use History / Comment(s): SMOKES MARIJUANA 1-2 TIMES A WEEK - Past Family History Father Family Medical History: Deep Vein Thrombosis (DVT) General Exam - General Exam Comments Initial Comments: Visual Physical Exam Vital signs reviewed General: Well-appearing, nontoxic, no acute distress. Patient is seated in wheelchair Head: Normocephalic, atraumatic Eyes: PERRLA, EOMI ENT: Airway patent Chest: Nonlabored breathing Skin: No visual rash, normal skin tone Neuro: Alert and oriented 3 Musculoskeletal: No gross abnormalities. Patient has cold compress on right knee General appearance: alert, in no apparent distress Head exam: Present: atraumatic, normocephalic, normal inspection Eye exam: Present: normal appearance, PERRL, EOMI. Absent: scleral icterus, conjunctival injection, periorbital swelling ENT exam: Present: normal exam, mucous membranes moist Neck exam: Present: normal inspection. Absent: tenderness, meningismus, lymphadenopathy Respiratory exam: Present: normal lung sounds bilaterally. Absent: respiratory distress, wheezes, rales, rhonchi, stridor Cardiovascular Exam: Present: regular rate, normal rhythm, normal heart sounds. Absent: systolic murmur, diastolic murmur, rubs, gallop, clicks GI/Abdominal exam: Present: soft, normal bowel sounds. Absent: distended, tenderness, guarding, rebound, rigid Extremities exam: Present: tenderness (Positive diffuse right knee tenderness without obvious crepitus or deformity.), normal capillary refill, joint swelling (Positive diffuse right knee edema especially on medial aspect. Negative erythema or ecchymosis). Absent: pedal edema, calf tenderness Back exam: Present: normal inspection Neurological exam: Present: alert, oriented X3, CN II-XII intact Psychiatric exam: Present: normal affect, normal mood Skin exam: Present: warm, dry, intact, normal color. Absent: rash Course Vital Signs 04/14/24 12:56 Temperature 98.4 F Pulse Rate 81 Respiratory 18 Rate Blood Pressure 112/74 O2 Sat by Pulse 98 Oximetry Medical Decision Making - Medical Decision Making I completed the quick note portion of this chart signed MIGUEL Zhao Was pt. sent in by a medical professional or institution (REJI Ma, VENDOR MANAGEMENT ASSOCIATE, urgent care, hospital, or care home...) When possible be specific @ -No Did you speak to anyone other than the patient for history (EMS, parent, family, police, friend...)? What history was obtained from this source @ -No Did you review nursing and triage notes (agree or disagree)? Why? @ -I reviewed and agree with nursing and triage notes Were old charts reviewed (outside hosp., previous admission, EMS record, old EKG, old radiological studies, urgent care reports/EKG's, care home records)? Report findings @ -No old charts were reviewed Differential Diagnosis (chest pain, altered mental status, abdominal pain women, abdominal pain men, vaginal bleeding, weakness, fever, dyspnea, syncope, headache, dizziness, GI bleed, back pain, seizure, CVA, palpatations, mental health, musculoskeletal)? @ -Knee contusion, patellar fracture, distal femur fracture, tibial plateau fracture, partial ligament tear, complete ligament tear, this is not an exhaustive list EKG interpreted by me (3pts min.). @ -Not done X-rays interpreted by me (1pt min.). @ -Right knee x-ray reveals no obvious fracture or dislocation. Some joint effusion noted CT interpreted by me (1pt min.). @ -None done U/S interpreted by me (1pt. min.). @ -None done What testing was considered but not performed or refused? (CT, X-rays, U/S, labs)? Why? @ -None What meds were considered but not given or refused? Why? @ -None Did you discuss the management of the patient with other professionals (professionals i.e. , PA, VENDOR MANAGEMENT ASSOCIATE, lab, RT, psych nurse, mental health social worker, mattress filling machine tender, teacher, aoc director combat plans officer, director of casework)? Give summary @ -No Was smoking cessation discussed for >3mins.? @ -No Was critical care preformed (if so, how long)? @ -No Were there social determinants of health that impacted care today? How? (Homelessness, low income, unemployed, alcoholism, drug addiction, transportation, low edu. Level, literacy, decrease access to med. care, [facility], rehab)? @ -No Was there de-escalation of care discussed even if they declined (Discuss DNR or withdrawal of care, Hospice)? DNR status @ -No What co-morbidities impacted this encounter? (DM, HTN, Smoking, COPD, CAD, Cancer, CVA, ARF, Chemo, Hep., AIDS, mental health diagnosis, sleep apnea, morbid obesity)? @ -None Was patient admitted / discharged? Hospital course, mention meds given and route, prescriptions, significant lab abnormalities, going to OR and other pertinent info. @ -Discharge. Right knee x-ray revealed no fracture or acute findings. Patient knee wrapped in Caio wrap and cool compress applied by me. Advised RICE and NSAIDs. Motrin 800 p.o. sent to pharmacy Undiagnosed new problem with uncertain prognosis? @ -No Drug Therapy requiring intensive monitoring for toxicity (Heparin, Nitro, Insulin, Cardizem)? @ -No Were any procedures done? @ -No Diagnosis/symptom? @ -Knee contusion Acute, or Chronic, or Acute on Chronic? @ -Acute Uncomplicated (without systemic symptoms) or Complicated (systemic symptoms)? @ -Uncomplicated Side effects of treatment? @ -No Exacerbation, Progression, or Severe Exacerbation? @ -No Poses a threat to life or bodily function? How? (Chest pain, [place], [place], pneumonia, PE, COPD, DKA, ARF, appy, cholecystitis, CVA, Diverticulitis, Homicidal, Suic idal, threat to staff... and all critical care pts) @ -No Disposition Clinical Impression: Knee contusion Disposition: HOME SELF-CARE Condition: Good Instructions (If sedation given, give patient instructions): Knee Pain (ED) Prescriptions: Ibuprofen [Motrin] 800 mg PO Q8H PRN #30 tab PRN Reason: Pain Is patient prescribed a controlled substance at d/c from ED?: No Referrals: None,Stated [Primary Care Provider] - 1-2 days Time of Disposition: 13:42
--- NOTE | 2024-04-14 12:54 | XR ---
Right knee HISTORY: Trauma and pain. COMPARISON: None. TECHNIQUE: 3 views of the right knee were obtained. There is no fracture, dislocation or focal intraosseous abnormality. There is moderate narrowing of t he lateral joint space consistent with moderate osteoarthritis. There is a small to moderate joint e ffusion. IMPRESSION: 1. Small to moderate joint effusion. 2. No acute fracture or dislocation. 3. Moderate osteoarthritis of the lateral compartment [facility], , 04/14/2024 12:51 PM
[2024-04-14 12:58] VITALS: RESP 18
[2024-04-14 15:44] VITALS: BP 108/74; PULSE 87; TEMP 98.7
[2024-04-14] MEDS: KETOROLAC 15 MG/ML 1 ML VIAL IM STA (15:44)
== END 2024-04-14 15:50 | disposition home or self-care (01) ==
LOC: EC 12:14
CPT/HCPCS: 99283

== ENCOUNTER 2025-01-20 15:43 | Emergency (ER) | payer MEDICARE ==
[2025-01-20 15:56] VITALS: BP 129/90; PULSE 85; RESP 20; TEMP 98
--- NOTE | 2025-01-20 16:29 | ED ---
Head Injury HPI - General Chief complaint: Head Injury Stated complaint: head injury Time Seen by Provider: 01/20/25 16:17 Source: patient, RN notes reviewed Mode of arrival: ambulatory Limitations: no limitations - History of Present Illness Initial comments: This is a 54-year-old female who presents to the emergency department for a head injury and neck pain. Patient was hit in the front of the head with a softball yesterday and when she took the impact her neck went back, and she believes she strained it. There was no loss of consciousness and she is not taking any blood thinners. States that since then her head has been painful and "heavy". Also states that her neck feels very sore and stiff. MD Complaint: head injury - Related Data Previous Rx's Medication Instructions Recorded Cyclobenzaprine [Flexeril] 10 mg PO TID PRN #30 tab 01/20/25 Naproxen Sodium 550 mg PO BID PRN #30 tablet 01/20/25 Allergies/Adverse reactions: Allergies Allergy/AdvReac Type Severity Reaction Status Date / Time No Known Allergies Allergy Verified 01/20/25 17:26 Review of Systems ROS Statement: Those systems with pertinent positive or pertinent negative responses have been documented in the HPI. ROS Other: All systems not noted in ROS Statement are negative. Past Medical History Past Medical History: Liver Disease Additional Past Medical History / Comment(s): CIRRHOSIS. ESOPHAGEAL VARICIES History of Any Multi-Drug Resistant Organisms: None Reported Past Surgical History: Bariatric Surgery, Cholecystectomy, Tubal Ligation Additional Past Surgical History / Comment(s): tummy tuck, gastric bypass, EGD, COLONOSCOPY Past Anesthesia/Blood Transfusion Reactions: No Reported Reaction Past Psychological History: Anxiety Smoking Status: Current every day smoker Past Alcohol Use History: None Reported Past Drug Use History: Marijuana - Past Family History Father Family Medical History: Deep Vein Thrombosis (DVT) General Exam Limitations: no limitations General appearance: alert, in no apparent distress Head exam: Present: other (Hematoma to the forehead between the eyebrows) Eye exam: Present: normal appearance, PERRL, EOMI. Absent: scleral icterus, conjunctival injection, periorbital swelling Neck exam: Present: normal inspection, full ROM. Absent: tenderness, meningismus, lymphadenopathy Respiratory exam: Present: normal lung sounds bilaterally. Absent: respiratory distress, wheezes, rales, rhonchi, stridor Cardiovascular Exam: Present: regular rate, normal rhythm Neurological exam: Present: alert, oriented X3, CN II-XII intact Psychiatric exam: Present: normal affect, normal mood Skin exam: Present: warm, dry, intact, normal color. Absent: rash Course Vital Signs 01/20/25 15:52 Temperature 98 F Pulse Rate 85 Respiratory 20 Rate Blood Pressure 129/90 O2 Sat by Pulse 98 Oximetry Medical Decision Making - Medical Decision Making This is a 54-year-old female who presents to the emergency department for a head injury and neck pain. Was pt. sent in by a medical professional or institution? @ -No Did you speak to anyone other than the patient for history? @ -No Did you review nursing and triage notes? @ -Yes, and I agree, it is accurate with regards to the patient's symptoms. Were old charts reviewed? @ -No Differential Diagnosis? @ -Differential Diagnosis Head Injury: Contusion, hematoma, intracranial hemorrhage, skull fracture, whiplash, concussion, this is not meant to be an all-inclusive list. EKG interpreted by me (3pts min.)? @ -Not obtained X-rays interpreted by me (1pt min.)? @ -Not obtained CT interpreted by me (1pt min.)? @ -Computed tomography scan of the brain and c-spine obtained. My interpretation identifies no evidence of an acute intracranial hemorrhage, skull fracture, or cervical spine fracture. U/S interpreted by me (1pt. min.)? @ -Not obtained What testing was considered but not performed? (CT, X-rays, U/S, labs)? Why? @ -None What meds were considered but not given? Why? @ -None Did you discuss the management of the patient with other professionals? @ -No Did you reconcile home meds? @ -No Was smoking cessation discussed for >3mins.? @ -I discussed smoking cessation for greater than 3 minutes. The risk of smoking were discussed with the patient including but not limited to risks of cancer, stroke, coronary artery disease and COPD. Also discussed with patient were multiple methods of quitting smoking. Lastly we discussed the financial cost of smoking. Was critical care preformed (if so, how long)? @ -No Were there social determinants of health that impacted care today? How? (Homelessness, low income, unemployed, alcoholism, drug addiction, transportation, low edu. Level, literacy, decrease access to med. care, half-way, rehab)? @ -No Was there de-escalation of care discussed even if they declined? (Discuss DNR or withdrawal of care, Hospice)? @ -No What co-morbidities impacted this encounter? (DM, HTN, Smoking, COPD, CAD, Cancer, CVA, Hep., AIDS, mental health diagnosis, sleep apnea, morbid obesity)? @ -Smoking Was patient admitted / discharged? @ -Discharged. CT scan of the brain and C-spine obtained revealing no acute process. Symptoms treated in the emergency department. Naproxen and Flexeril prescribed for further management. Concussion precautions reviewed as well. Patient discharged home in stable condition. Case discussed with ED attending Dr. Sahni. Return precautions reviewed in depth, the patient is instructed to return to the emergency department with any new, worsening, or concerning symptoms. Patient verbalized understanding. Undiagnosed new problem with uncertain prognosis? @ -None Drug Therapy requiring intensive monitoring for toxicity (Heparin, Nitro, Insulin, Cardizem)? @ -None Were any procedures done? @ -None Diagnosis/symptom? @ -Head injury, cervical strain Acute, or Chronic, or Acute on Chronic? @ -Acute Uncomplicated (without systemic symptoms) or Complicated (systemic symptoms)? @ -Uncomplicated Side effects of treatment? @ -None Exacerbation, Progression, or Severe Exacerbation] @ -Not applicable Poses a threat to life or bodily function? @ -No - Radiology Data Radiology results: report reviewed, image reviewed Disposition Clinical Impression: Closed head injury, Cervical strain, Nicotine dependence Disposition: HOME SELF-CARE Instructions (If sedation given, give patient instructions): Cervical Strain (ED), Concussion (ED), Head Injury (ED) Additional Instructions: Return to the emergency department with any new, worsening, or concerning symptoms. Take the naproxen twice daily as needed for pain control. You may take this with Tylenol, however do not take it with any other anti- inflammatories like ibuprofen. Take the Flexeril up to 3 times daily. This will help with neck tightness. Be aware that this may make you drowsy. Follow up with your primary care provider in 1-2 days. Prescriptions: Cyclobenzaprine [Flexeril] 10 mg PO TID PRN #30 tab PRN Reason: Pain Naproxen Sodium 550 mg PO BID PRN #30 tablet PRN Reason: Pain Is patient prescribed a controlled substance at d/c from ED?: No Referrals: None,Stated [Primary Care Provider] - 1-2 days Time of Disposition: 18:15
[2025-01-20] MEDS: SODIUM CHLORIDE 0.9% 1,000 ML IV ONE (16:57)
[2025-01-20] MEDS: ORPHENADRINE 30 MG/ML 2 ML VIAL IVP STA (16:57)
[2025-01-20] MEDS: ACETAMINOPHEN TAB 500 MG TAB PO STA (16:58)
--- NOTE | 2025-01-20 17:31 | CT ---
EXAMINATION TYPE: CT brain cspine wo con CT DLP: 1922.4 mGycm, Automated exposure control for dose reduction was used. DATE OF EXAM: 01/20/2025 5:09 PM COMPARISON: CT brain 03/14/2021. CLINICAL INDICATION:Female, 54 years old with history of Head injury, neck pain; headache post head i njury, pain TECHNIQUE: Brain: Multiple axial CT images of the brain were obtained without IV contrast. Cspine: Axial CT images from the skull base to the inferior aspect of T2 we obtained without intraven ous contrast. Coronal and sagittal reformatted images were also reviewed. FINDINGS: Brain: Extra-axial spaces: No abnormal extra-axial fluid collections. Ventricular system: Within normal limits Cerebral parenchyma: No acute intraparenchymal hemorrhage or mass effect. The espinoza-white junction is well differentiated. Cerebellum: Unremarkable. Mass effect: No evidence of midline shift. Intracranial vasculature: Atherosclerotic calcifications of the intracranial vessels. Soft tissues: Normal. Calvarium/osseous structures: No depressed skull fracture. Paranasal sinuses and mastoid air cells: Clear. Visualized orbits: Orbital contents are intact. Cervical spine: Fracture: None. Osseous structures: Anterior osteophytosis at C6-C7. Vertebral alignment: Within normal limits. Spinal canal/Neural Foramina: No evidence of significant spinal canal narrowing. No evidence for sign ificant neural foraminal stenosis. Neck soft tissues: Prevertebral soft tissues are within normal limits. Other: The airway is patent. The lung apices are clear. IMPRESSION: 1. No acute intracranial process. 2. No evidence of cervical spine fracture. [facility], , 01/20/2025 5:29 PM
[2025-01-20] MEDS: KETOROLAC 15 MG/ML 1 ML VIAL IVP STA (17:56)
== END 2025-01-20 18:33 | disposition home or self-care (01) ==
LOC: EC 15:43
CPT/HCPCS: 70450; 72125; 96361; 96374; 96375; 99283